=== PATIENT | male | born 1940 | race Caucasian/White ===

== ENCOUNTER 2022-06-06 13:49 | Outpatient (CLI) | payer MEDICARE, BC, SELFPAY ==
--- NOTE | 2022-06-06 14:00 | CRLHL7_ITS ---
For Patients: As a result of the Cures Act, medical imaging exams and procedure reports are released immediately into your electronic medical record. You may view this report before your referring provider. If you have questions, please contact your health care provider. INDICATION: Left calf trauma TECHNIQUE: A compression venous ultrasound exam was performed of the left lower extremity using wynne-scale imaging, color Doppler and spectral Doppler analysis. FINDINGS: Sonographic imaging of the left lower extremity demonstrates normal compressibility and color Doppler venous blood flow within the common femoral vein, deep femoral vein, and the proximal greater saphenous vein. Within the thigh, the femoral vein is patent and compressible. At a lower level, the popliteal and posterior tibial veins also show normal compressibility and color Doppler venous blood flow. Limited imaging of the contralateral groin demonstrates a normal spectral waveform and color Doppler venous blood flow within the right common femoral vein. Fluid collection in the medial left calf measuring approximately 5.3 x1.1 centimeter. IMPRESSION: No evidence of deep vein thrombosis within the left lower extremity. Fluid collection in the left medial calf could be related to hematoma given history of trauma measuring approximately 5.3 x 1.1 centimeters. Dictated by Nevin Perdomo MD @ 06/06/2022 3:18:57 PM (Electronically Signed)
== END 2022-06-06 13:50 | disposition home or self-care (01) ==
PROVIDERS: PCP Nurse Practitioner Family; Visit Provider Nurse Practitioner Family
DX: M79.89 Other specified soft tissue disorders (principal)
CPT/HCPCS: 93971

== ENCOUNTER 2022-06-10 08:30 | Outpatient (CLI) | payer MEDICARE, BC, SELFPAY ==
[2022-06-10 15:52] LABS: Chloride* 104 mmol/L (96-114); Sodium* 141 mmol/L (135-149)
[2022-06-10 15:53] LABS: Albumin* 3.9 g/dL (3.3-5.0); Potassium* 5.2 mmol/L (3.6-5.1)
[2022-06-10 15:55] LABS: Carbon Dioxide* 29 mmol/L (20-32)
[2022-06-10 15:56] LABS: Alanine Aminotransferase* 26 U/L (4-50); Alkaline Phosphatase* 85 U/L (40-150); Aspartate Amino Transferase* 23 U/L (12-35); Blood Urea Nitrogen* 21 mg/dL (7-30); Calcium* 10.1 mg/dL (8.4-10.6); Cholesterol* 115 mg/dL (90-199); Creatinine* 0.8 mg/dL (0.5-1.5); Estimated Glomerular Filt Rate 88 ml/min; Glucose* 154 mg/dL (60-115); HDL Cholesterol* 39 mg/dL (>=40); LDL Cholesterol Calculated 58 mg/dL (<100); Total Protein* 6.3 g/dL (6.0-8.3); Triglycerides* 91 mg/dL (40-149)
[2022-06-10 16:13] LABS: Creatinine Urine 172.9 mg/dL
[2022-06-10 16:16] LABS: Microalbumin Creatinine Ratio 50 mg/g (0-30); Microalbumin Urine 9 mg/dL
== END 2022-06-10 08:31 | disposition home or self-care (01) ==
PROVIDERS: PCP Nurse Practitioner Family; Visit Provider Nurse Practitioner Family
DX: E11.9 Type 2 diabetes mellitus without complications (principal); I10 Essential (primary) hypertension; E78.5 Hyperlipidemia, unspecified; D62 Acute posthemorrhagic anemia; M79.89 Other specified soft tissue disorders; Z86.79 Personal history of other diseases of the circulatory system
CPT/HCPCS: 80053; 80061; 82043; 82570; 84443

== ENCOUNTER 2023-06-19 13:50 | Outpatient (CLI) | payer MEDICARE, BC, SELFPAY ==
--- OUTSIDE RECORDS SUMMARY | 2023-06-21 09:13 | XMS_ITS ---
Author Name Unknown Organization [facility] Address [address] [place] [address] Care Team Providers Care Life Enrichment Director Name Role Phone Mitesh Jean M.D., Ph.D. 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 Past Plans No past plan information found. Radiation Treatments * No radiation treatments are documented for this patient in [facility]. Treatments may have been administered in another system. Lifetime Dose Tracking * Chemical Lifetime Dose Automatic Entry Manual Entr y Radiation 13 mGy 13 mGy 0 mGy Fluoro Time 0.4 minutes 0.4 minutes 0 minutes Resolved Problems Problem Noted Date Diagnosed Date Resolved Date Acute Respiratory Failure With Hypoxia 06/02/2020 06/12/2020 Atelectasis 06/01/2020 06/12/2020 Hypertension Essential Primary 05/30/2020 06/12/2020 Coronary Artery Disease With out Angina Pectoris 05/29/2020 06/12/2020 Bundle Branch Block Bifascicular 06/22/2018 08/13/2020 Elevated Prostate-Specific Antigen 05/29/2018 06/12/2020 Overview: Added automatically from request for surgery [id number] Helicobacter Pylori As The C ause Of Diseases Classified Elsewhere 10/18/2016 06/06/2018 Fasciitis Plantar 07/10/2013 06/06/2018 Overview: left date of onset Coronary Artery Disease (Unspecified) 04/16/2008 06/06/2018
--- OUTSIDE RECORDS SUMMARY | 2023-06-21 09:13 | XMS_ITS | Encounter Summary ---
Author Name Unknown Organization [facility] Address [address] [place] [address] Care Team Providers Care Drywall Carrier Name Role Phone Mitesh Jean M.D., Ph.D. Primary Care Provider Encounter Details Date Type Department Care Team (Latest Contact Info) Description 03/30/2023 9:56 AM [facility] - 03/30/2023 11:59 PM [facility] Hospital Encounter Department of Laboratory Medicine in [address] [phone] Virgil Saucedo M.D. [address] [place] [phone] Coronary Arterial Bypass Graft Status Post Personal History; Atherosclerosis Of Coronary Artery Bypass Graft Without Angina Pectoris Discharge Disposition: Home or Self Care Social History Tobacco Use Types Packs/Day Years Used Date Smoking Tobacco: Former Cigarettes Q uit: 1980 Smokeless Tobacco: Current Chew Alcohol Use Standard Drinks/Week Comments Yes 0 (1 standard drink = 0.6 oz pur e alcohol) one drink a week maybe AUDIT-C Answer Date Recorded Q1: How often do you have a drink containing alc ohol? Monthly or less 02/28/2019 Average Number of Drinks Not on file 020 Frequency of Binge Drinking Not on file 02/13 PHQ-2 Answer Date Recorded PHQ-2 Score 0 11/18/2022 Depression Answer Date Recor ded PHQ-9 Total Score (max 27) 1 06/16 Nutrition Answer Date Recorded Nutrition: EVOO Fat Source Unknown 04/04 Nutrition: Servings of Fruits/Vegetables per Day Not on file 04/04/2020 Dental Answer Date Recorded Dental: Regular Dentist Unknown 04/04/19 Sex and Gender Information Value Date Recorded Sex Assigned at Male 11/03/2020 9:23 AM CDT Gender Identity Not on file Sexual Orientation Not on file documented as of this encounter Medications at Time of Discharge Medication Sig Dispensed Refills Start Date End Date aspirin [address] tablet Take 1 tablet (81 mg total) by mouth daily. Hold until stent removal 07/06/2018 atorvastatin (LIPITOR) 80 mg tablet Take 1 tablet by mouth every evening 90 tablet 3 06/10/2022 calcium citrate-vitamin D3 (for_CITRACAL+D) 1,184 mg (250 mg calcium)-200 unit per tablet Take 1 tablet by mouth daily with breakfast. glipiZIDE (GLUCOTROL XL) 5 mg 24 hr tablet Take 1 tablet (5 mg total) by mouth daily. 90 tablet 3 01/06/2023 isosorbide mononitrate (IMDUR) 30 mg 24 hr tablet Take 1 tablet (30 mg total) by mouth daily. 90 tablet 3 02/23/2023 lisinopriL (PRINIVIL,ZESTRIL) 10 mg tablet Take 1 tablet (10 mg total) by mouth daily. 90 tablet 3 02/23/2023 metFORMIN (GLUCOPHAGE) 1,000 mg tablet Take 1 tablet by mouth twice a day 180 tablet 3 06/10/2022 metoprolol tartrate (LOPRESSOR) 25 mg tablet Take 1 tablet (25 mg total) by mouth 2 (two) times a day. 180 tablet 3 06/10/2022 nitroglycerin (NITROSTAT) 0.[address] 1 tablet (0.4 mg) under the tongue every 5 minutes as needed for chest pain. Do not exceed 3 doses per episode. 25 tablet 11/03/2022 documented as of this encounter Miscellaneous Notes * Result Encounter Note - Debra Lynch R.N. - 03/31/2023 11:54 AM [facility] Contacted patient on mobile phone to relay Dr. Saucedo's message about his lipid results: Please let him know that his lipid was excellent and shows very good control. No changes to his medications. Thanks, Virgil Patient had no further questions at this time. [facility] documented in this encounter Plan of Treatment Upcoming Encounters Date Type Department Care Team (Late st Contact Info) Description 08/03/2023 8:00 AM CDT Appointment Department of Laboratory Medicine and Pathology, [place], [place] [address] [place] [phone] Juanita Grant APRN C.N.P., M.S.N. [address] [place] [phone] 08/03/2023 8:45 AM CDT Appointment Department of Radiology, [place], [place] [address] [place] [phone] Juanita Grant APRN C.N.P., M.S.N. [address] [place] [phone] 08/03/2023 2:30 PM CDT Office Visit Department of Radiology, [place], [place] [address] [place] [phone] Juanita Grant APRN C.N.P., M.S.N. [address] [place] [phone] documented as of this encounter Procedures Procedure Name Priority Date/Time Associated Diagnosis Comments LIPID PANEL, S Routine 03/30/2023 9:02 AM [facility] Coronary Arterial Bypass Graft Status Post Personal History Atherosclerosis Of Coronary Artery Bypass Graft Without Angina Pectoris documented in this encounter Results * Lipid Panel (03/30/2023 9:02 AM [facility]) Triglycerides 75 mg/dL 03/30/2023 10:21 AM [facility]FL Comment: ----REFERENCE VALUE---- Normal: <150 mg/dL Borderline High: 150-199 mg/dL High: 200-499 mg/dL Very High: > or =500 mg/dL Cholesterol, Total 101 mg/dL 2023 10:21 AM [facility] Comment: ----REFERENCE VALUE---- Desirable: < 200 mg/dL Borderline High: 200 - 239 mg/dL High: > or = 240 mg/dL Cholesterol, LDL, Calculated 41 mg/dL 03/30/2023 10:21 AM [facility]FL Comment: ----REFERENCE VALUE---- Desirable: <100 mg/dL Above Desirable: 100-129 mg/dL Borderline High: 130-159 mg/dL High: 160-189 mg/dL Very High: >=190 mg/dL ----ADDITIONAL INFORMATION---- LDL cholesterol calculated using the Connolly/NIH equation. Cholesterol, HDL 44 >=40 mg/dL 03/30/2023 10:21 AM [facility]FL Cholesterol, Non-HDL, Calculated 57 mg/dL 03/30/2023 10:21 AM [facility] Comment: ----REFERENCE VALUE---- Desirable: <130 mg/dL Above Desirable: 130-159 mg/dL Borderline High: 160-189 mg/dL High: 190-219 mg/dL Very High: > or =220 mg/dL Fasting (8 HR or more) Unknown 03/30/2023 10:02 AM [facility] CNKY Blood (Blood, Venous) 03/30/2023 9:02 AM [facility] 03/30/2023 10:01 AM [facility] Virgil Saucedo M.D. LAB BLOOD ADD-ON [facility] [address] [place] [phone], [facility] in [address] [phone] documented in this encounter Visit Diagnoses Diagnosis Coronary Arterial Bypass Graft Status Post Personal History Atherosclerosis Of Coronary Artery Bypass Graft Without Angina Pectoris documented in this encounter Additional Health Concerns Assessment Noted Time PHQ-9 Depression Total Score: 1 06/17/19 21 1:53 PM CDT documented as of this encounter Care Teams Drywall Carrier Relationship Specialty Start Date End Date Mitesh Jean M.D., Ph.D. [id number] [place] [phone] PCP - General Family Medicine 06/04/20 documented as of this encounter
--- OUTSIDE RECORDS SUMMARY | 2023-06-21 09:13 | XMS_ITS | Referral Summary ---
Author Name Unknown Organization [facility] Address [address] [place] [address] Care Team Providers Care Hemmer Automatic Name Role Phone Mitesh Jean M.D., Ph.D. Primary Care Provider Source Comments Patient records contain information from all sites at [facility]. For routine questions regarding patient records, call [phone] during business hours, M-F 8:00 AM - 5:00 PM Central Time. Record requests for emergency care only can be directed to [phone] at any time.[facility] Encounters Date Type Department Care Team Description 06/20/2023 Orders Only [facility] Mitesh Rudolph M.D., Ph.D. 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 Coronary Arterial Bypass Graft Status Post Personal History; Atherosclerosis Of Coronary Artery Bypass Graft Without Angina Pectoris Discharge Disposition: Home or Self Care 03/30/2023 9:15 AM NAIL KEGGER Office Visit Department of Cardiovascular Diseases in [address] [phone] Virgil Saucedo M.D. 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 Dyspnea On Exertion; Coronary Arterial Bypass Graft Status Post Personal History Discharge Disposition: Home or Self Care from Last 3 Months Allergies Active Allergy Reactions Criticality Noted Date Comments Morphine Rash High 05/17/2007 Medications Medication Sig Dispensed Refills Start Date End Date Status calcium citrate-vitamin D3 (for_CITRACAL+D) 1,184 mg (250 mg calcium)-200 unit per tablet Take 1 tablet by mouth daily with breakfast. Active aspirin [address] tablet Take 1 tablet (81 mg total) by mouth daily. Hold until stent removal 07/06/2018 Active atorvastatin (LIPITOR) 80 mg tablet Take 1 tablet by mouth every evening 90 tablet 3 06/10/2022 Active metoprolol tartrate (LOPRESSOR) 25 mg tablet Take 1 tablet (25 mg total) by mouth 2 (two) times a day. 180 tablet 3 06/10/2022 Active metFORMIN (GLUCOPHAGE) 1,000 mg tablet Take 1 tablet by mouth twice a day 180 tablet 3 06/10/2022 Active nitroglycerin (NITROSTAT) 0.[address] 1 tablet (0.4 mg) under the tongue every 5 minutes as needed for chest pain. Do not exceed 3 doses per episode. 25 tablet 11/03/2022 Active glipiZIDE (GLUCOTROL XL) 5 mg 24 hr tablet Take 1 tablet (5 mg total) by mouth daily. 90 tablet 3 01/06/2023 Active lisinopriL (PRINIVIL,ZESTRIL) 10 mg tablet Take 1 tablet (10 mg total) by mouth daily. 90 tablet 3 02/23/2023 Active isosorbide mononitrate (IMDUR) 30 mg 24 hr tablet Take 1 tablet (30 mg total) by mouth daily. 90 tablet 3 02/23/2023 Active neomycin-polymyxin- dexamethasone (MAXITROL) 3.5mg/mL-10,000 unit/mL-0.1 % ophthalmic suspension Administer 1 drop into the right eye 6 (six) times a day, then taper as directed; shake before use 5 mL 1 04/24/2023 Active sulfamethoxazole-tr imethoprim (BACTRIM DS) 800-160 mg per tablet Take 1 tablet by mouth 2 (two) times a day. 10 tablet 06/19/2023 Active Active Problems Problem Noted Date Diagnosed Date Pain Right Upper Quadrant 04/03/2021 Overview: Added automatically from request for surgery [id number] Pain Epigastric 04/03/2021 Overview: Added automatically from request for surgery [id number] Dysphagia 04/03/2021 Overview: Added automatically from request for surgery [id number] Bypass Coronary Artery Graft Status Post 021 [...] Cervical 05/07/2015 Atherosclerotic Heart Diseas e Of [place] Coronary Artery Without Angina Pectoris 09/30/2013 Overview: Coronary Artery Disease (CAD) Chronic Primary Osteoarthritis Multiple Sites 04/13/2011 Overview: date of onset unknown Hypertensive Heart Disease Without Heart Failure 12/29/2009 Personal History Of Malignant Neoplasm Of [place] te 10/30/2008 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 Hyperlipidemia 04/16/2008 Primary Malignant Neoplasm Of Prostate 8 Resolved Problems Problem Noted Date Diagnosed Date Resolved Date Acute Respiratory Failure With Hypoxia 06/02/2020 06/12/2020 Atelectasis 06/01/2020 06/12/2020 Hypertension Essential Primary 05/30/2020 06/12/2020 Coronary Artery Disease With out Angina Pectoris 05/29/2020 06/12/2020 Bundle Branch Block Bifascicular 06/22/2018 08/13/2020 Elevated Prostate-Specific Antigen 05/29/2018 06/12/2020 Overview: Added automatically from request for surgery [id number] Helicobacter Pylori As The C ause Of Diseases Classified Elsewhere 10/18/2016 06/06/2018 Fasciitis Plantar 07/10/2013 06/06/2018 Overview: left date of onset Coronary Artery Disease (Unspecified) 04/16/2008 06/06/2018 Immunizations Name Administration Dates Next Due H1N1 All Forms 02/12/2009 Influenza (IM) Preservative Free 12/28/2010 Influenza TIV (IM) 10/28/2011,11/13/2010 Influenza high dose QV(65 ye ars or older) (PF) 12/16/2020,11/26/2019,12/19/2018,2017,12/13/2016,12/09/2015,11/20/2014,1 03/16/2013 Influenza, Seasonal, Injectable 10/28/2011,11/13 Influenza, Unspecified 11/27/2012,11/13/2010 PCV13 05/15/2015 PPSV23 01/13/2006 SARS-COV-2 (COVID-19) - PFIZ ER (Discontinued)(12 years or older) 04/11/2020,03/21/2020 Td (Adult), adsorbed 05/14/2000 Td Preservative Free (TENIVA C, DECAVAC) 04/05/2010 Td, (Adult) Unspecified 05/14/2000 Tdap 05/15/2015 influenza high dose (65 year s or older) (PF) 12/13/2016,12/09/2015,11/20/2014,2013 Social History Tobacco Use Types Packs/Day Years Used Date Smoking Tobacco: Former Cigarettes Q uit: 1979 Smokeless Tobacco: Current Chew Tobacco Cessation:Ready to Q uit: Not Asked; Counseling Given: Not Answered Alcohol Use Standard Drinks/Week Comments Yes 0 [...] on file Sexual Orientation Not on file Last Filed Vital Signs Vital Sign Reading Time Taken Comments Blood Pressure 116/76 03/30/2023 9:06 AM NAIL KEGGER Pulse 61 03/30/2023 9:06 AM NAIL KEGGER Temperature 36.7 ??C (98.1 ??F) 03/30/2023 9:06 AM CS T Respiratory Rate 17 11/01/2022 5:00 PM CDT Oxygen Saturation 95% 03/30/2023 9:06 AM NAIL KEGGER Inhaled Oxygen Concentration - - Weight 101 kg (221 lb 9 oz) 03/30/2023 9:[address] Height 169 cm (5' 6.54) 04/27/2021 9:26 AM CDT Body Mass Index 35.19 04/27/2021 9:26 AM CDT Plan of Treatment Upcoming Encounters Date Type Department Care Team (Late st Contact Info) Description 08/03/2023 8:00 AM CDT Appointment Department of Laboratory Medicine and Pathology, [place], [place] [address] [place] [phone] Juanita Grant APRN, C.N.P., M.S.N. [address] [place] [phone] 08/03/2023 8:45 AM CDT Appointment Department of Radiology, [place], [place] 200 [place] [address] Juanita Grant APRN, C.N.P., M.S.N. [address] [place] [phone] 08/03/2023 2:30 PM CDT Office Visit Department of Radiology, [facility], in [place], [place] [address] [place] [address] Juanita Grant APRN, C.N.P., M.S.N. [address] [place] [phone] Medical Devices Implanted Type Area Auriculotherapist Device Identifier Shelf Expiration Date Model / Serial / Lot Clp Hrzn Ti 24 Clp Sm Red - [id number] Implanted:Qty: 1 on 05/29/2020 by Lisa Trinidad M.D., M.P.H. at [facility] Hardware e.g. pins/screws /rods N/A: [employer] [id number] / / Clp Hrzn Ti 24 Clp Sm Red - [id number] Implanted:Qty: 2 on 05/29/2020 by Lisa Trinidad M.D., M.P.H. at [facility] Hardware e.g. pins/screws /rods N/A: [employer] [id number] / / Clp Hrzn Ti 24 Clp Wa [place] - [id number] Implanted:Qty: 1 on 05/29/2020 by Lisa Trinidad M.D., M.P.H. at [facility] Hardware e.g. pins/screws /rods N/A: [employer] [id number] / / Clp Hrzn Ti 24 Clp Sm Red - [id number] Implanted:Qty: 1 on 05/29/2020 by Michel Luke M.B. at [facility] Hardware e.g. pins/screws /rods Left: [employer] [id number] 11/30/2024 [id number] / / [id number] Clp Hrzn Ti 24 Clp [place] - [id number] Implanted:Qty: 1 on 05/29/2020 by Michel Luke M.B. at [facility] Hardware e.g. pins/screws /rods Left: [employer] [id number] 10/07/2024 [id number] / / [id number] Knee Implant Knee Implant Knee Conversions - Default Historical Implant Device Implanted:Qty: 1 on 10/05/2015 Ocular Lens Left: Eye Description:Body Location - Eye L. Device Status Text - OculrLens. Conversions - Default Historical Implant Device Implanted:Qty: 1 on 10/05/2015 Ocular Lens Right: Eye Description:Body Location - Eye R. Device Status Text - OculrLens. Explanted Type Area Auriculotherapist Device Identifier Shelf Expiration Date Model / Serial / Lot Stnt Uret Inl [id number] - [id number] Implanted:Qty : 1 on 07/05/2018 by Marium Gutierrez M.D. at [facility] Explanted:Qty : 1 on 07/10/2018 by Elvin Cabrales M.D. Ureteral Stent Left: Ureter C.R.Bard [id number] 04/26/2022 [id number] / / [id number] Procedures Procedure Name Priority Date/Time Associated Diagnosis Comments LIPID PANEL, S Routine 03/30/2023 9:02 AM NAIL KEGGER Coronary Arterial Bypass Graft Status Post Personal History Atherosclerosis Of Coronary Artery Bypass Graft Without Angina Pectoris NT-PRO B-TYPE NATRIURETIC PEPTIDE (BNP), S Routine 03/30/2023 9:02 AM NAIL KEGGER Dyspnea On Exertion CBC WITHOUT DIFFERENTIAL, B Routine 03/30/2023 9:02 AM NAIL KEGGER Dyspnea On Exertion BASIC METABOLIC PANEL, S/P Routine 03/30/2023 9:02 AM NAIL KEGGER Dyspnea On Exertion HEMOGLOBIN A1C, B Routine 11/18/2022 8:3 3 AM CDT 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) ALBUMIN, RANDOM, U Routine 12/29/2021 9: 30 AM [facility] 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) from Last 3 Months or Most Recently Relevant to Health Maintenance Results * Lipid Panel (03/30/2023 9:02 AM [facility]) Triglycerides 75 mg/dL 03/30/2023 10:21 AM [facility] Comment: ----REFERENCE VALUE---- Normal: <150 mg/dL Borderline High: 150-199 mg/dL High: 200-499 mg/dL Very High: > or =500 mg/dL Cholesterol, Total 101 mg/dL 2023 10:21 AM [facility] Comment: ----REFERENCE VALUE---- Desirable: < 200 mg/dL Borderline High: 200 - 239 mg/dL High: > or = 240 mg/dL Cholesterol, LDL, Calculated 41 mg/dL 03/30/2023 10:21 AM [facility] Comment: ----REFERENCE VALUE---- Desirable: <100 mg/dL Above Desirable: 100-129 mg/dL Borderline High: 130-159 mg/dL High: 160-189 mg/dL Very High: >=190 mg/dL ----ADDITIONAL INFORMATION---- LDL cholesterol calculated using the Connolly/NIH equation. Cholesterol, HDL 44 >=40 mg/dL 03/30/2023 10:21 AM [facility] Cholesterol, Non-HDL, Calculated 57 mg/dL 03/30/2023 10:21 AM [facility] Comment: ----REFERENCE VALUE---- Desirable: <130 mg/dL Above Desirable: 130-159 mg/dL Borderline High: 160-189 mg/dL High: 190-219 mg/dL Very High: > or =220 mg/dL Fasting (8 HR or more) Unknown 03/30/2023 10:02 AM [facility] Blood (Blood, Venous) 03/30/2023 9:02 AM NAIL KEGGER 03/30/2023 10:01 AM [facility] Virgil Saucedo M.D. LAB BLOOD ADD-ON [facility] [address] [place] [phone], [facility] in [address] [address] * NT-Pro B-Type Natriuretic Peptide (BNP) (03/30/2023 9:02 AM NAIL KEGGER) NT-Pro BNP 66 <=540 pg/mL 03/30/2023 9:37 AM NAIL KEGGER [facility] Comment: NT-proBNP values less than 300 pg/mL have a 99% negative predictive value for excluding acute congestive heart failure. A cutoff of 1200 pg/mL for patients with an eGFR<60 yields a diagnostic sensitivity and specificity of 89% and 72% for acute congestive heart failure. A diagnostic NT-proBNP cutoff of 1800 pg/mL has been suggested in adults over 75 years of age in the absence of renal failure. Blood (Blood, Venous) 03/30/2023 9:02 AM NAIL KEGGER 03/30/2023 9:04 AM NAIL KEGGER Virgil Saucedo M.D. LAB BLOOD ADD-ON [facility] [address] [place] [phone], [facility] in [address] [address] * (ABNORMAL) CBC without Differential (03/30/2023 9:02 AM NAIL KEGGER) Hemoglobin 15.9 13.2 - 16.6 g/dL 03/30/2023 9:23 AM [facility] Hematocrit 48.8(H) 38.3 - 48.6 % 03/30/2023 9:23 AM NA[facility] Erythrocytes 5.69(H) 4.35 - 5.65 x10(12)/L 03/30/2023 9:23 AM NA[facility] MCV 85.8 78.2 - 97.9 fL 03/30/2023 9:23 AM NA[facility] RBC Distrib Width 13.8 11.8 - 14.5 % 03/30/2023 9:23 AM [facility] Platelet Count 202 135 - 317 x10(9)/L 03/30/2023 9:23 AM NA[facility] Leukocytes 7.1 3.4 - 9.6 x10(9)/L 03/30/2023 9:23 AM NA[facility] Blood (Blood, Venous) 03/30/2023 9:02 AM NAIL KEGGER 03/30/2023 9:04 AM NAIL KEGGER Virgil Saucedo M.D. LAB BLOOD ADD-ON [facility] [address] [place] [phone], [facility] CNFL [facility] [place] [address] * (ABNORMAL) Basic Metabolic Panel (03/30/2023 9:02 AM NAIL KEGGER) Potassium, P 4.9 3.6 - 5.2 mmol/L 03/30/2023 9:26 AM [facility] Sodium, P 142 135 - 145 mmol/L 03/30/2023 9:26 AM NA[facility] Chloride, P 105 98 - 107 mmol/L 03/30/2023 9:26 AM NA[facility] Bicarbonate, P 29 22 - 29 mmol/L 03/30/2023 9:26 AM NAIL [facility] Anion Gap, P 8 7 - 15 03/30/2023 9:26 AM NA[facility] BUN (Blood Urea Nitrogen), P 25(H) 8 - 24 mg/dL 03/30/2023 9:26 AM NA[facility] KE[facility] Creatinine 1.03 0.74 - 1.35 mg/dL 03/30/2023 9:26 AM NA[facility] Estimated GFR (eGFR) 73 >=60 mL/min/BSA 03/30/2023 9:26 AM NAIL KEGGER [facility] Comment: Estimated GFR calculated using the 2020 CKD_EPI creatinine equation. Calcium, Total, P 10.2 8.8 - 10.2 mg/dL 03/30/2023 9:26 AM NAIL KEGGER [facility] Glucose, P 152(H) 70 - 140 mg/dL 03/30/2023 9:26 AM NAIL KEGGER [facility] Blood (Blood, Venous) 03/30/2023 9:02 AM NAIL KEGGER 03/30/2023 9:04 AM NAIL KEGGER Virgil Saucedo M.D. LAB BLOOD ADD-ON Performing Organization Address City/[facility]/ZIP Co de Phone Number [facility] [address] [place] [phone], [facility] CNFL [facility] in [address] [address] * (ABNORMAL) Hemoglobin A1c (11/18/2022 8:33 AM CDT) Hemoglobin A1c, B 8.2(H) 4.2 - 5.6 % 11/18/2022 1:45 PM CDT [facility] Comment: Hemoglobin A1c values greater than or equal to 6.5 percent are diagnostic for diabetes mellitus. ??Diagnosis should be confirmed by repeat testing. ??In diabetic patients, HbA1c goals should be discussed with healthcare provider. Blood (Blood, Venous) 11/18/2022 8:33 AM CDT 11/18/2022 8:34 AM CDT Mitesh Jean M.D., Ph.D. LAB BLOOD ADD-O N Performing Organization Address City/[facility]/ZIP Co de Phone Number [facility] [address] [place] [phone], [facility] in [address] [phone] * (ABNORMAL) Albumin, Random, Urine (12/29/2021 9:30 AM NAIL KEGGER) Microalbumin 175.8 mg/L 12/29/2021 9:45 AM [facility] Creatinine 330 mg/dL 12/29/2021 9:45 AM NAIL KEGGER [facility] Albumin/Creatinin e Ratio 53(H) <17 mg/g 12/29/2021 9:45 AM NAIL KEGGER [facility] Urine (Urine, Midstream) 12/29/2021 9:30 AM NAIL KEGGER 12/29/2021 9:30 AM NAIL KEGGER Mitesh Jean M.D., Ph.D. LAB URINE ORDER [facility] [address] [address], [place] CNFL [facility] in [place] [id number] [place] [phone] from Last 3 Months or Most Recently Relevant to Health Maintenance Advance Directives For more information, please contact: [phone] Documents on File Type Date Recorded Patient Home Economist Expl anation Advance Directives 05/29/2012 12:00 AM Leg acy document. See document viewer. * Full Code (Latest Code Status on File) Date Activated Date Inactivated Comments 05/29/2020 8:01 PM 06/03/2020 1:44 PM Question Answer Comments Full Code: Discussed * Full Code Date Activated Date Inactivated Comments 05/24/2020 12:09 PM 05/29/2020 8:01 PM Question Answer Comments Full Code: Discussed Care Teams Hemmer Automatic Relationship Specialty Start Date End Date Mitesh Jean M.D., Ph.D. [address] [address] [place] [address] PCP - General Family Medicine 06/04/20
--- OUTSIDE RECORDS SUMMARY | 2023-06-21 09:13 | XMS_ITS | Encounter Summary ---
Author Name Unknown Organization [facility] Address [address] [place] [address] Care Team Providers Care Angiography Nurse Name Role Phone Mitesh Jean M.D., Ph.D. Primary Care Provider Reason for Referral * Outpatient (Routine) - Authorized Specialty Diagnoses / Procedures Referred By Perfecto ac Referred To Contact Cardiovascular Disease Virgil Saucedo M.D. [address] [place] [phone] [facility] Region Referral ID Status Reason Start Date Expiration Date V isits Requested Visits Authorized [id number] Authorized 03/30/2023 09/28/2024 1 1 [employer] Reason for Visit * Reason Comments Follow-up * Outpatient (Routine) - Closed Specialty Diagnoses / Procedures Referred By Perfecto ac Referred To Contact Cardiovascular Disease Virgil Saucedo M.D. [address] [place] [phone] [facility] Region Referral ID Status Reason Start Date Expiration Date Visits Re quested Visits Authorized [id number] Closed 02/23/2023 02/22/2026 1 1 Encounter Details Date Type Department Care Team (Latest Contact Info) Description 03/30/2023 9:15 AM [employer] Office Visit Department of Cardiovascular Diseases in [address] [phone] Virgil Saucedo M.D. 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); Hyperlipidemia; Hypertensive Heart Disease Without Heart Failure Discharge Disposition: Home or Self Care Social [...] on file documented as of this encounter Last Filed Vital Signs Vital Sign Reading Time Taken Comments Blood Pressure 116/76 03/30/2023 9:06 AM [employer] Pulse 61 03/30/2023 9:06 AM [employer] Temperature 36.7 ??C (98.1 ??F) 03/30/2023 9:06 AM CS T Respiratory Rate - - Oxygen Saturation 95% 03/30/2023 9:06 AM [employer] Inhaled Oxygen Concentration - - Weight 101 kg (221 lb 9 oz) 03/30/2023 9:[address] Height - - Body Mass Index 35.19 04/27/2021 9:26 AM CDT documented in this encounter Patient Instructions * Patient Instructions* Virgil Saucedo M.D. - 03/30/2023 9:15 AM [employer] Lipid panel. Today. Go back to the director of front office and see it still flags that it may not be covered. Exercise as your prescription for today. Six month follow-up. If doing great, ok to cancel. See Dr. Jean. If not doing well (chest pain, worsening shortness of breath--call [phone] ask to speak to a heart nurse). [employer] documented in this encounter Progress Notes * Virgil Saucedo M.D. - 03/30/2023 9:15 AM CST SUBJECTIVE CHIEF COMPLAINT / REASON FOR VISIT Follow-up HISTORY OF PRESENT ILLNESS Isak Ochoa is a 82 y.o. male who presents for follow-up for evaluation of chronic ischemic heart disease. Please see my note from 02/23/2023 for details of his medical history. He was admitted in May [address]-elevation myocardial infarction. At that time, he underwent coronary artery bypass grafting including POWERS to LAD and radial artery graft to a diagonal. He did well in follow-up. On 11/01/2022, he was seen for chest pain in the emergency room. This wasintermittent and sharp lasting for only 1-2 seconds. EKG and troponins were reassuring. Over the last 6 months, he has describes increased shortness of breath. He underwent a stress echocardiogram 01/27/2023. This was mildly positive for ischemia with 2 segments in the anterior distribution. No chest pain with exercise. Exercise capacity was 83% of predicted. When I last saw him, we discussed a broad differential for dyspnea. We had him undergo basic laboratory studies and a chest x-ray. We tried to get his blood pressure under better control with a move to lisinopril at 10 mg daily. I asked him to start a regular aerobic exercise program. We also started him on Imdur 30 mg daily. He smoked for about 20 years but quit 40 years ago. No known COPD or asthma. He presents back today overall improved. He feel like his breathing has improved with Imdur and time. No chest pain. No unusual shortness of breath. His has recently been in the hospital which has taken up most of the time. He has not started an exercise program. He brings in blood pressures which showed that most are under reasonable control. The following portions of the patient's history were reviewed as appropriate: medical history, social history, and surgical history. CURRENT MEDICATIONS Current Outpatient Medications on File Prior to Visit Medication Sig Dispense Refill aspirin [address] tablet Take 1 tablet (81 mg total) by mouth daily. Hold until stent removal atorvastatin (LIPITOR) 80 mg tablet Take 1 tablet by mouth every evening 90 tablet 3 calcium citrate-vitamin D3 (for_CITRACAL+D) 1,184 mg (250 mg calcium)-200 unit per tablet Take 1 tablet by mouth daily with breakfast. glipiZIDE (GLUCOTROL XL) 5 mg 24 hr tablet Take 1 tablet (5 mg total) by mouth daily. 90 tablet 3 isosorbide mononitrate (IMDUR) 30 mg 24 hr tablet Take 1 tablet (30 mg total) by mouth daily. 90 tablet 3 lisinopriL (PRINIVIL,ZESTRIL) 10 mg tablet Take 1 tablet (10 mg total) by mouth daily. 90 tablet 3 metFORMIN (GLUCOPHAGE) 1,000 mg tablet Take 1 tablet by mouth twice a day 180 tablet 3 metoprolol tartrate (LOPRESSOR) 25 mg tablet Take 1 tablet (25 mg total) by mouth 2 (two) times a day. 180 tablet 3 nitroglycerin (NITROSTAT) 0.[address] 1 tablet (0.4 mg) under the tongue every 5 minutesas needed for chest pain. Do not exceed 3 doses per episode. 25 tablet 0 No current facility-administered medications on file prior to visit. OBJECTIVE BP 116/76 (BP Location: Left arm, Patient Position: Sitting, Cuff Size: Regular) Pulse 61 Temp 36.7 ??C Wt 101 kg SpO2 95% BMI 35.19 kg/m?? PHYSICAL EXAMINATION General: Pleasant, conversant, and in no distress. Appears stated age. HEENT: Mucous membranes moist. Neck is supple. Trachea is midline. No scleral icterus or conjunctival pallor. Neck: Supple, no erythema. Cardiovascular: Regular rhythm and rate. No murmurs. Jugular venous pressure is normal. Pulmonary: Normal respiratory effort. Clear without wheezing or rhonchi. Abdomen: Soft, nontender, nondistended. Extremities: Warm and dry without significant edema. Psychiatric: Alert and oriented with appropriate affect. DIAGNOSTICS Lab Results Component Value Date/Time CHOL 123 05/25/2020 04:56 AM CHOL 139 03/25/2020 09:15 AM HDL 42 05/25/2020 04:56 AM HDL 38 (L) 03/25/2020 09:15 AM HDL 48 08/30/2016 07:30 AM LDLCALC 65 05/25/2020 04:56 AM LDLCALC 75 03/25/2020 09:15 AM TRIG 82 05/25/2020 04:56 AM TRIG 128 03/25/2020 09:15 AM ASSESSMENT / PLAN 1. History of coronary artery disease status post two-vessel CABG 2020. 2. Dyspnea on exertion, resolved with time, Imdur, a improved blood pressure control. 3. Hyperlipidemia on therapy. 4. Hypertension. He presents back overall improved. He does not note any dyspnea and describes good quality of life.We would continue forward with medical therapy for his coronary artery disease. We will have him recheck a lipid panel today to make sure that this is optimally treated. He is otherwise doing well with secondary prevention of coronary artery disease. I would like him to start a regular exercise program. He brings in home blood pressure recordings which show adequate control. At this juncture, we will follow-up with him after his lipid panel returns. We will plan to see himback in 6 months. If he is doing very well at that time, he could cancel and continue to see his primary care physician in follow-up. 30 minutes over half of which was spent in counseling and coordination of care in regards to dyspnea, chronic ischemic heart disease, hyperlipidemia, hypertension. [employer] documented in this encounter Plan of Treatment Upcoming Encounters Date Type Department Care Team (Late st Contact Info) Description 08/03/2023 8:00 AM CDT Appointment Department of Laboratory Medicine and Pathology, [facility] in [place] [address] [place] [phone] BathkeJuanita APRN, C.NDarien., M.S.N. [address] [place] [phone] 08/03/2023 8:45 AM CDT Appointment Department of Radiology, [facility] in [place], [place] [address] [place] [phone] Juanita Grant APRN, C.N.P., M.S.N. [address] [place] [phone] 08/03/2023 2:30 PM CDT Office Visit Department of Radiology, [place], [place] [address] [place] [phone] Juanita Grant APRN, C.NMitul, M.S.N. [address] [place] [phone] Scheduled Referrals Name Type Priority Associated Diagnoses Order Schedule Cardiovascular Disease office visit (clinic) Outpatient Referral Routine Expect ed: 09/28/2023 (Approximate), Expires: 06/27/2024 documented as of this encounter Results * Lipid Panel (03/30/2023 9:02 AM [facility]) Triglycerides 75 mg/dL 03/30/2023 10:21 AM [facility] Comment: ----REFERENCE VALUE---- Normal: <150 mg/dL Borderline High: 150-199 mg/dL High: 200-499 mg/dL Very High: > or =500 mg/dL Cholesterol, Total 101 mg/dL 2023 10:21 AM [facility] Comment: ----REFERENCE VALUE---- Desirable: < 200 mg/dL Borderline High: 200 - 239 mg/dL High: > or = 240 mg/dL Cholesterol, LDL, Calculated 41 mg/dL 03/30/2023 10:21 AM [facility] Comment: ----REFERENCE VALUE---- Desirable: <100 mg/dL Above Desirable: 100-129 mg/dL Borderline High: 130-159 mg/dL High: 160-189 mg/dL Very High: >=190 mg/dL ----ADDITIONAL INFORMATION---- LDL cholesterol calculated using the Connolly/NIH equation. Cholesterol, HDL 44 >=40 mg/dL 03/30/2023 10:21 AM [employer] [facility] Cholesterol, Non-HDL, Calculated 57 mg/dL 03/30/2023 10:21 AM [employer] [facility] Comment: ----REFERENCE VALUE---- Desirable: <130 mg/dL Above Desirable: 130-159 mg/dL Borderline High: 160-189 mg/dL High: 190-219 mg/dL Very High: > or =220 mg/dL Fasting (8 HR or more) Unknown 03/30/2023 10:02 AM [employer] [facility] Blood (Blood, Venous) 03/30/2023 9:02 AM [employer] 03/30/2023 10:01 AM [employer] Virgil Saucedo M.D. 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 [address] [place] [phone] PCP - General Family Medicine 06/04/20 documented as of this encounter
--- OUTSIDE RECORDS SUMMARY | 2023-06-21 09:13 | XMS_ITS ---
Author Name Unknown Organization [facility] Address [address] [place] [address] Care Team Providers Care Cripple Chaser Name Role Phone Unavailable Unavailable Unavailable Surgery Details Not on file Complications Check Surgery Details section. Procedure Estimated Blood Loss Check Surgery Details section. Procedure Findings Check Surgery Details section. Procedure Specimens Taken Check Surgery Details section.
--- OUTSIDE RECORDS SUMMARY | 2023-06-21 09:13 | XMS_ITS | Clinical Summary ---
Author Name Unknown Organization [facility] Address [address] [place] [address] Care Team Providers Care Inpatient Auditor Name Role Phone Mitesh Jean M.D., Ph.D. Primary Care Provider Source Comments Patient records contain information from all sites at [facility]. For routine questions regarding patient records, call [phone] during business hours, M-F 8:00 AM - 5:00 PM Central Time. Record requests for emergency care only can be directed to [phone] at any time.[facility] Allergies Active Allergy Reactions Criticality Noted Date [...] Overview: Added automatically from request for surgery [id number] Pain Epigastric 04/03/2021 Overview: Added automatically from request for surgery [id number] Dysphagia 04/03/2021 Overview: Added automatically from request for surgery [id number] Bypass Coronary Artery Graft Status Post 021 [...] Cervical 05/07/2015 Atherosclerotic Heart Diseas e Of [place] Coronary Artery Without Angina Pectoris 09/30/2013 Overview: [...] Overview: Added automatically from request for surgery [id number] Helicobacter Pylori As The C ause Of Diseases Classified Elsewhere 10/18/2016 06/06/2018 Fasciitis Plantar 07/10/2013 06/06/2018 Overview: left date of onset Coronary Artery Disease (Unspecified) 04/16/2008 06/06/2018 Encounters Date Type Department Care Team Description 06/20/2023 Orders Only [facility] Mitesh Rudolph M.D., Ph.D. 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 Coronary Arterial Bypass Graft Status Post Personal History; Atherosclerosis Of Coronary Artery Bypass Graft Without Angina Pectoris Discharge Disposition: Home or Self Care 03/30/2023 9:15 AM SAND CUTTER Office Visit Department of Cardiovascular Diseases in [address] [phone] Virgil Saucedo M.D. 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 Dyspnea On Exertion; Coronary Arterial Bypass Graft Status Post Personal History Discharge Disposition: Home or Self Care from Last 3 Months Immunizations Name Administration Dates Next Due H1N1 [...] (65 year s or older) (PF) 12/13/2016,12/09/2015,11/20/2014,2013 Family History Medical History Relation Name Comments Diabetes Brother 1 Prostate cancer Brother 2 No Known Problems Father Cancer Mother Cataracts Neg Hx Glaucoma Neg Hx Hypertension Neg Hx Macular degeneration Neg Hx Retinal degeneration Neg Hx Retinal detachment Neg Hx Relation Name Status Comments Brother 1 Brother 2 Father Mother Social History Tobacco Use Types Packs/Day Years [...] Comments Blood Pressure 116/76 03/30/2023 9:06 AM SAND CUTTER Pulse 61 03/30/2023 9:06 AM SAND CUTTER Temperature 36.7 ??C (98.1 ??F) 03/30/2023 9:06 AM CS T Respiratory Rate 17 11/01/2022 5:00 PM CDT Oxygen Saturation 95% 03/30/2023 9:06 AM SAND CUTTER Inhaled Oxygen Concentration - - Weight 101 kg (221 lb 9 oz) 03/30/2023 9:[address] Height 169 cm (5' 6.54) 04/27/2021 9:26 AM CDT Body Mass Index 35.19 04/27/2021 9:26 AM CDT Plan of Treatment Upcoming Encounters Date Type Department Care Team (Late st Contact Info) Description 08/03/2023 8:00 AM CDT Appointment Department of Laboratory Medicine and Pathology, [facility], in [place], [place] [address] [place] [address] Juanita Grant APRN, C.N.P., M.S.N. 200 [place] [address] 08/03/2023 8:45 AM CDT Appointment Department of Radiology, [facility], in [place], [place] [address] [place] [address] Juanita Grant APRN, C.N.P., M.S.N. [address] [place] [address] 08/03/2023 2:30 PM CDT Office Visit Department of Radiology, [facility], in [place], [place] [address] [place] [address] Juanita Grant APRN, C.N.Augustina., M.S.N. [address] [place] [address] Health Maintenance Due Date Last Done Comments Visit: Medicare Annual Wellness 1940 Hepatitis B Vaccines (1 of 3 - Risk 3-dose series) 2000 Diabetic Office Visit with F oot Exam 06/12/2021 06/12/2020 Tobacco Cessation counseling 06/12/2021 06/12/2020 Dilated Eye Exam 08/28/2021 08/28/2020, 02/28/2019 Urine Albumin 12/29/2022 12/29/2021, 05/16, 04/07/2017 Depression Screening (Annual PHQ-2) 02/13/2023 Fall Risk Screen (Annual) 02/13/2023 Hemoglobin A1C 02/18/2023 11/18/2022, 12/14, 04/02/2021, Additional history exists COVID-19 Vaccine (2022- 4 season) 2023 12/07/2022, 11/16/2021, 05/18/2021, Additional history exists Visit: Chronic Disease, age 18+ 11/19/2023 , 11/18/2022 Creatinine Level (Kidney Fun ction Test) 03/30/2024 03/30/2023, 11/01/2022, 05/22/2022, Additional history exists Office Visit for Blood Press ure Check / Re-check 03/30/2024 03/30/2023 Potassium Level 03/30/2024 03/30/2023, 10/14, 05/22/2022, Additional history exists Sodium Level 03/30/2024 03/30/2023, 10/14, 05/22/2022, Additional history exists DTaP,Tdap,and Td Vaccines (2 - Td or Tdap) 05/14/2025 05/15/2015, 04/05/2010, 05/14/2000, Additional history exists Pneumococcal vaccine (65+ years) Completed 05/15/2015, 01/27/2006, 01/13/2006 Zoster Vaccines Completed 02/19/2021, 12/03/2020 Influenza Vaccine Completed 12/07/2022, , 12/16/2020, Additional history exists Medical Devices Implanted Type Area Nurse Outreach Case Manager Device Identifier Shelf Expiration Date Model / Serial / Lot Clp Hrzn Ti 24 Clp Sm Red - [id number] Implanted:Qty: 1 on 05/29/2020 by Lisa Trinidad M.D., M.P.H. at [facility] Hardware e.g. pins/screws /rods N/A: [employer] [id number] / / Clp Hrzn Ti 24 Clp Sm Red - [id number] Implanted:Qty: 2 on 05/29/2020 by Lisa Trinidad M.D., M.P.H. at [facility] Hardware e.g. pins/screws /rods N/A: [employer] [id number] / / Clp Hrzn Ti 24 Clp Molina - [id number] Implanted:Qty: 1 on 05/29/2020 by Lisa Trinidad M.D., M.P.H. at [facility] Hardware e.g. pins/screws /rods N/A: [employer] [id number] / / Clp Hrzn Ti 24 Clp Sm Red - [id number] Implanted:Qty: 1 on 05/29/2020 by Michel Luke M.B. at [facility] Hardware e.g. pins/screws /rods Left: [employer] [id number] 11/30/2024 [id number] / / [id number] Clp Hrzn Ti 24 Clp Molina - [id number] Implanted:Qty: 1 on 05/29/2020 by Michel Luke M.B. at [facility] Hardware e.g. pins/screws /rods Left: [employer] [id number] 10/07/2024 [id number] / / [id number] Knee Implant Knee Implant Knee Conversions - Default Historical Implant Device Implanted:Qty: 1 on 10/05/2015 Ocular Lens Left: Eye Description:Body Location - Eye L. Device Status Text - OculrLens. Conversions - Default Historical Implant Device Implanted:Qty: 1 on 10/05/2015 Ocular Lens Right: Eye Description:Body Location - Eye R. Device Status Text - OculrLens. Explanted Type Area Nurse Outreach Case Manager Device Identifier Shelf Expiration Date Model / Serial / Lot Stnt Uret Inl [id number] - [id number] Implanted:Qty : 1 on 07/05/2018 by Marium Gutierrez M.D. at [facility] Explanted:Qty : 1 on 07/10/2018 by Elvin Cabrales M.D. Ureteral Stent Left: Ureter C.R.Bard [id number] 04/26/2022 [id number] / / [id number] Procedures Procedure Name Priority Date/Time Associated Diagnosis Comments LIPID PANEL, S Routine 03/30/2023 9:02 AM SAND CUTTER Coronary Arterial Bypass Graft Status Post Personal History Atherosclerosis Of Coronary Artery Bypass Graft Without Angina Pectoris NT-PRO B-TYPE NATRIURETIC PEPTIDE (BNP), S Routine 03/30/2023 9:02 AM SAND CUTTER Dyspnea On Exertion CBC WITHOUT DIFFERENTIAL, B Routine 03/30/2023 9:02 AM SAND CUTTER Dyspnea On Exertion BASIC METABOLIC PANEL, S/P Routine 03/30/2023 9:02 AM SAND CUTTER Dyspnea On Exertion HEMOGLOBIN A1C, B Routine 11/18/2022 8:3 3 AM CDT 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) ALBUMIN, RANDOM, U Routine 12/29/2021 9: 30 AM SAND CUTTER 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) from Last 3 Months or Most Recently Relevant to Health Maintenance Results * Lipid Panel (03/30/2023 9:02 AM [facility]) Triglycerides 75 mg/dL 03/30/2023 10:21 AM [facility] CNFL Comment: ----REFERENCE VALUE---- Normal: <150 mg/dL Borderline High: 150-199 mg/dL High: 200-499 mg/dL Very High: > or =500 mg/dL Cholesterol, Total 101 mg/dL 2023 10:21 AM [facility] CNFL Comment: ----REFERENCE VALUE---- Desirable: < 200 mg/dL Borderline High: 200 - 239 mg/dL High: > or = 240 mg/dL Cholesterol, LDL, Calculated 41 mg/dL 03/30/2023 10:21 AM [facility] CNFL Comment: ----REFERENCE VALUE---- Desirable: <100 mg/dL Above Desirable: 100-129 mg/dL Borderline High: 130-159 mg/dL High: 160-189 mg/dL Very High: >=190 mg/dL ----ADDITIONAL INFORMATION---- LDL cholesterol calculated using the Connolly/NIH equation. Cholesterol, HDL 44 >=40 mg/dL 03/30/2023 10:21 AM [facility] CNFL Cholesterol, Non-HDL, Calculated 57 mg/dL 03/30/2023 10:21 AM [facility] CNFL Comment: ----REFERENCE VALUE---- Desirable: <130 mg/dL Above Desirable: 130-159 mg/dL Borderline High: 160-189 mg/dL High: 190-219 mg/dL Very High: > or =220 mg/dL Fasting (8 HR or more) Unknown 03/30/2023 10:02 AM [facility] CNSC Blood (Blood, Venous) 03/30/2023 9:02 AM SAND CUTTER 03/30/2023 10:01 AM SAND CUTTER Virgil Saucedo M.D. LAB BLOOD ADD-ON [facility] [address] [place] [address], [address] [address] * NT-Pro B-Type Natriuretic Peptide (BNP) (03/30/2023 9:02 AM SAND CUTTER) NT-Pro BNP 66 <=540 pg/mL 03/30/2023 9:37 AM SAND CUTTER CNFL Comment: NT-proBNP values less than 300 [...] failure. Blood (Blood, Venous) 03/30/2023 9:02 AM SAND CUTTER 03/30/2023 9:04 AM SAND CUTTER Virgil Saucedo M.D. LAB BLOOD ADD-ON [facility] [address] [place] [address], [address] [address] * (ABNORMAL) CBC without Differential (03/30/2023 9:02 AM SAND CUTTER) Hemoglobin 15.9 13.2 - 16.6 g/dL 03/30/2023 9:23 AM SAND CUTTER CNFL Hematocrit 48.8(H) 38.3 - 48.6 % 03/30/2023 9:23 AM SAND CUTTER CNFL Erythrocytes 5.69(H) 4.35 - 5.65 x10(12)/L 03/30/2023 9:23 AM SAND CUTTER CNFL MCV 85.8 78.2 - 97.9 fL 03/30/2023 9:23 AM SAND CUTTER CNFL RBC Distrib Width 13.8 11.8 - 14.5 % 03/30/2023 9:23 AM SAND CUTTER CNFL Platelet Count 202 135 - 317 x10(9)/L 03/30/2023 9:23 AM SAND CUTTER CNFL Leukocytes 7.1 3.4 - 9.6 x10(9)/L 03/30/2023 9:23 AM SAND CUTTER CNFL Blood (Blood, Venous) 03/30/2023 9:02 AM SAND CUTTER 03/30/2023 9:04 AM SAND CUTTER Virgil Saucedo M.D. LAB BLOOD ADD-ON [facility] [address] [place] [address], [facility] CNFL [facility] [place] [address] * (ABNORMAL) Basic Metabolic Panel (03/30/2023 9:02 AM SAND CUTTER) Potassium, P 4.9 3.6 - 5.2 mmol/L 03/30/2023 9:26 AM SAND CUTTER CNFL Sodium, P 142 135 - 145 mmol/L 03/30/2023 9:26 AM SAND CUTTER CNFL Chloride, P 105 98 - 107 mmol/L 03/30/2023 9:26 AM SAND CUTTER CNFL Bicarbonate, P 29 22 - 29 mmol/L 03/30/2023 9:26 AM SAND CUTTER CNFL Anion Gap, P 8 7 - 15 03/30/2023 9:26 AM SAND CUTTER CNFL BUN (Blood Urea Nitrogen), P 25(H) 8 - 24 mg/dL 03/30/2023 9:26 AM SAND CUTTER CNFL Creatinine 1.03 0.74 - 1.35 mg/dL 03/30/2023 9:26 AM SAND CUTTER CNFL Estimated GFR (eGFR) 73 >=60 mL/min/BSA 03/30/2023 9:26 AM SAND CUTTER CNFL Comment: Estimated GFR calculated using the 2020 CKD_EPI creatinine equation. Calcium, Total, P 10.2 8.8 - 10.2 mg/dL 03/30/2023 9:26 AM SAND CUTTER CNFL Glucose, P 152(H) 70 - 140 mg/dL 03/30/2023 9:26 AM SAND CUTTER CNFL Blood (Blood, Venous) 03/30/2023 9:02 AM SAND CUTTER 03/30/2023 9:04 AM SAND CUTTER Virgil Saucedo M.D. LAB BLOOD ADD-ON Performing Organization Address [facility] Co de Phone Number [facility] [address] [place] [address], [facility] CNFL [facility] [place] [facility] in [address] [address] * (ABNORMAL) Hemoglobin A1c (11/18/2022 8:33 AM [...] LAB BLOOD ADD-O N Performing Organization Address City/[facility] Co de Phone Number [facility] [address] [place] [address], [facility] RDWG [facility] [place] [facility] in [place] [address] [place] [phone] * (ABNORMAL) Albumin, Random, Urine (12/29/2021 9:30 AM SAND CUTTER) Microalbumin 175.8 mg/L 12/29/2021 9:45 AM SAND CUTTER CNFL Creatinine 330 mg/dL 12/29/2021 9:45 AM SAND CUTTER CNFL Albumin/Creatinin e Ratio 53(H) <17 mg/g 12/29/2021 9:45 AM SAND CUTTER CNFL Urine (Urine, Midstream) 12/29/2021 9:30 AM SAND CUTTER 12/29/2021 9:30 AM SAND CUTTER Mitesh Jean M.D., Ph.D. LAB URINE ORDER [place] [facility] [id number] [place] [address], [place] CNFL [facility] [place] [facility] in [place] [id number] [place] [phone] from Last 3 Months or Most Recently Relevant to Health Maintenance Advance Directives For more information, please contact: [phone] Documents on File Type Date Recorded Patient Metal Tile Setter Expl anation Advance Directives 05/29/2012 12:00 AM Leg acy document. See document viewer. * Full Code (Latest Code Status on File) Date Activated Date Inactivated Comments 05/29/2020 8:01 PM 06/03/2020 1:44 PM Question Answer Comments Full Code: Discussed * Full Code Date Activated Date Inactivated Comments 05/24/2020 12:09 PM 05/29/2020 8:01 PM Question Answer Comments Full Code: Discussed Care Teams Inpatient Auditor Relationship Specialty Start Date End Date Mitesh Jean M.D., Ph.D. [address] [place] [address] PCP - General Family Medicine 06/04/20
--- OUTSIDE RECORDS SUMMARY | 2023-06-21 09:13 | XMS_ITS | Encounter Summary ---
Author Name Unknown Organization [facility] Address [address] [place] [address] Care Team Providers Care Hand Edger Name Role Phone Mitesh Jean M.D., Ph.D. Primary Care Provider Encounter Details Date Type Department Care Team (Late st Contact Info) Description 06/20/2023 Orders Only [facility] Mitesh Rudolph M.D., Ph.D. 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) Social History Tobacco Use Types Packs/Day Years Used Date Smoking Tobacco: Former Cigarettes Q uit: 1979 Smokeless Tobacco: Current Chew Alcohol Use Standard [...] Date Recorded Dental: Regular Dentist Unknown 04/04/19 21 Sex and Gender Information Value Date Recorded Sex Assigned at Male 11/03/2020 9:23 AM CDT Gender Identity Not on file Sexual Orientation Not on file documented as of this encounter Plan of Treatment Upcoming Encounters Date Type Department Care Team (Late st Contact Info) Description 08/03/2023 8:00 AM CDT Appointment Department of Laboratory Medicine and Pathology, [place], [place] [address] [place] [phone] Juanita Grant APRN, C.N.PRamona, M.S.N. [address] [place] [phone] 08/03/2023 8:45 AM CDT Appointment Department of Radiology, [place], [place] [address] [place] [phone] Juanita Grant APRN, C.NMitul, M.S.N. [address] [place] [phone] 08/03/2023 2:30 PM CDT Office Visit Department of Radiology, [place], [place] [address] [place] [address] Juanita Grant APRN, C.N.PRamona, M.S.N. 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 [address] [place] [address] [place] [phone] PCP - General Family Medicine 06/04/20 documented as of this encounter
--- OUTSIDE RECORDS SUMMARY | 2023-06-21 09:14 | XMS_ITS | Encounter Summary ---
Author Name Unknown Organization [facility] Address [address] [place] [address] Care Team Providers Care Ornamental Ironworking Supervisor Name Role Phone Mitesh Jean M.D., Ph.D. Primary Care Provider Encounter Details Date Type Department Care Team (Latest Contact Info) Description 03/30/2023 8:40 AM ANGIOGRAPHY NURSE - 03/30/2023 9:55 AM [facility] Hospital Encounter Department of Laboratory Medicine in [address] [phone] Virgil Saucedo M.D. [address] [place] [phone] Dyspnea On Exertion; Coronary Arterial Bypass Graft Status Post Personal History Discharge Disposition: Home or Self Care Social [...] tablet 11/03/2022 documented as of this encounter Plan of Treatment Upcoming Encounters Date Type Department Care Team (Late st Contact Info) Description 08/03/2023 8:00 AM CDT Appointment Department of Laboratory Medicine and Pathology, [facility], in [place], [place] [address] [place] [address] Juaniat Grant APRN, C.N.P., M.S.N. [address] [place] [phone] 08/03/2023 8:45 AM CDT Appointment Department of Radiology, [facility] in [place], [place] [address] [place] [address] Juanita Grant APRN, C.N.P., M.S.N. [address] [place] [phone] 08/03/2023 2:30 PM CDT Office Visit Department of Radiology, [facility], in [place], [place] [address] [place] [phone] Juanita Grant APRN, C.N.P., M.S.N. [address] [place] [phone] documented as of this encounter Procedures Procedure Name Priority Date/Time Associated Diagnosis Comments NT-PRO B-TYPE NATRIURETIC PEPTIDE (BNP), S Routine 03/30/2023 9:02 AM ANGIOGRAPHY NURSE Dyspnea On Exertion CBC WITHOUT DIFFERENTIAL, B Routine 03/30/2023 9:02 AM ANGIOGRAPHY NURSE Dyspnea On Exertion BASIC METABOLIC PANEL, S/P Routine 03/30/2023 9:02 AM ANGIOGRAPHY NURSE Dyspnea On Exertion documented in this encounter Results * NT-Pro B-Type Natriuretic Peptide (BNP) (03/30/2023 9:02 AM ANGIOGRAPHY NURSE) NT-Pro BNP 66 <=540 pg/mL 03/30/2023 9:37 AM ANGIOGRAPHY NURSE CNFL Comment: NT-proBNP values less than 300 [...] failure. Blood (Blood, Venous) 03/30/2023 9:02 AM ANGIOGRAPHY NURSE 03/30/2023 9:04 AM ANGIOGRAPHY NURSE Virgil Saucedo M.D. LAB BLOOD ADD-ON [facility] [address] [place] [address], [address] [address] * (ABNORMAL) CBC without Differential (03/30/2023 9:02 AM ANGIOGRAPHY NURSE) Pathologist [facility] Hemoglobin 15.9 13.2 - 16.6 g/dL 03/30/2023 9:23 AM ANGIOGRAPHY NURSE CNFL Hematocrit 48.8(H) 38.3 - 48.6 % 03/30/2023 9:23 AM ANGIOGRAPHY NURSE CNFL Erythrocytes 5.69(H) 4.35 - 5.65 x10(12)/L 03/30/2023 9:23 AM ANGIOGRAPHY NURSE CNFL MCV 85.8 78.2 - 97.9 fL 03/30/2023 9:23 AM ANGIOGRAPHY NURSE CNFL RBC Distrib Width 13.8 11.8 - 14.5 % 03/30/2023 9:23 AM ANGIOGRAPHY NURSE CNFL Platelet Count 202 135 - 317 x10(9)/L 03/30/2023 9:23 AM ANGIOGRAPHY NURSE CNFL Leukocytes 7.1 3.4 - 9.6 x10(9)/L 03/30/2023 9:23 AM ANGIOGRAPHY NURSE CNFL Blood (Blood, Venous) 03/30/2023 9:02 AM ANGIOGRAPHY NURSE 03/30/2023 9:04 AM ANGIOGRAPHY NURSE Virgil Saucedo M.D. LAB BLOOD ADD-ON [facility] [address] [place] [address], [address] [address] * (ABNORMAL) Basic Metabolic Panel (03/30/2023 9:02 AM ANGIOGRAPHY NURSE) Potassium, P 4.9 3.6 - 5.2 mmol/L 03/30/2023 9:26 AM ANGIOGRAPHY NURSE CNFL Sodium, P 142 135 - 145 mmol/L 03/30/2023 9:26 AM ANGIOGRAPHY NURSE CNFL Chloride, P 105 98 - 107 mmol/L 03/30/2023 9:26 AM ANGIOGRAPHY NURSE CNFL Bicarbonate, P 29 22 - 29 mmol/L 03/30/2023 9:26 AM ANGIOGRAPHY NURSE CNFL Anion Gap, P 8 7 - 15 03/30/2023 9:26 AM ANGIOGRAPHY NURSE CNFL BUN (Blood Urea Nitrogen), P 25(H) 8 - 24 mg/dL 03/30/2023 9:26 AM ANGIOGRAPHY NURSE CNFL Creatinine 1.03 0.74 - 1.35 mg/dL 03/30/2023 9:26 AM ANGIOGRAPHY NURSE CNFL Estimated GFR (eGFR) 73 >=60 mL/min/BSA 03/30/2023 9:26 AM ANGIOGRAPHY NURSE CNFL Comment: Estimated GFR calculated using the 2020 CKD_EPI creatinine equation. Calcium, Total, P 10.2 8.8 - 10.2 mg/dL 03/30/2023 9:26 AM ANGIOGRAPHY NURSE CNFL Glucose, P 152(H) 70 - 140 mg/dL 03/30/2023 9:26 AM ANGIOGRAPHY NURSE CNFL Blood (Blood, Venous) 03/30/2023 9:02 AM ANGIOGRAPHY NURSE 03/30/2023 9:04 AM ANGIOGRAPHY NURSE Virgil Saucedo M.D. LAB BLOOD ADD-ON Performing Organization Address City/State/[place] Co de Phone Number [facility] [address] [place] [address], [facility] CNFL [facility] in [address] [address] documented in this encounter Visit Diagnoses Diagnosis Dyspnea On Exertion Coronary Arterial Bypass Graft Status Post Personal History documented in this encounter Additional Health Concerns Assessment Noted Time PHQ-9 Depression Total Score: 1 06/17/19 21 1:53 PM CDT documented as of this encounter Care Teams Ornamental Ironworking Supervisor Relationship Specialty Start Date End Date Mitesh Jean M.D., Ph.D. [address] [phone] PCP - General Family Medicine 06/04/20 documented as of this encounter
--- OUTSIDE RECORDS SUMMARY | 2023-06-21 09:14 | XMS_ITS | Encounter Summary ---
Author Name Unknown Organization [facility] Address [address] [place] [address] Care Team Providers Care Regular Senior Care Provider Name Role Phone Mitesh Jean M.D., Ph.D. Primary Care Provider Reason for Referral * Outpatient (Routine) - Authorized Specialty Diagnoses / Procedures Referred By Perfecto t Referred To Contact Family Medicine Mitesh Jean M.D., Ph.D. [address] [place] [phone] [facility] Referral ID Status Reason Start Date Expiration Date V isits Requested Visits Authorized [id number] Authorized 03/21/2023 09/19/2024 1 1 Scheduling Instructions Medicare annual provider visit/HCC gaps Do not schedule prior to due date to ensure insurance coverage Visit: Medicare Annual Wellness Never done. CLUB TRAVEL COUNSELOR Encounter Details Date Type Department Care Team (Late st Contact Info) Description 03/21/2023 [facility] Only [facility] Mitesh Jean M.D., Ph.D. [address] [place] [phone] Diabetes Mellitus Type 2 With Other [...] Appointment Department of Laboratory Medicine and Pathology, [place], [place] [address] [place] [address] Juanita Grant APRN, C.N.P., M.S.N. [address] [place] [phone] 08/03/2023 8:45 AM CDT Appointment Department of Radiology, [place], [place] [address] [place] [address] Juanita Grant APRN, C.N.P., M.S.N. [address] [place] [phone] 08/03/2023 2:30 PM CDT Office Visit Department of Radiology, [place], [place] [address] [place] [address] Juanita Grant APRN C.N.P., M.S.N. 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 [address] [place] [phone] PCP - General Family Medicine 06/04/20 documented as of this encounter
== END 2023-06-19 13:51 | disposition home or self-care (01) ==
LOC: NFLDREF 06-21 09:11
PROVIDERS: PCP Nurse Practitioner Family; Referring Provider Nurse Practitioner Family; Visit Provider Internal Medicine
DX: N39.0 Urinary tract infection, site not specified (principal); B96.20 Unspecified Escherichia coli [E. coli] as the cause of diseases classified elsewhere
CPT/HCPCS: 87086; 87186

== ENCOUNTER 2023-07-11 07:40 | Outpatient (CLI) | payer MEDICARE, BC, SELFPAY ==
--- OUTSIDE RECORDS SUMMARY | 2023-07-11 07:44 | XMS_ITS ---
Author Organization [facility] Address [address] [place] [address] Care Team Providers Care Electric Appliance Installer Name Role Phone Unavailable Unavailable Unavailable Surgery Details Not on file Complications Check Surgery Details section. Procedure Estimated Blood Loss Check Surgery Details section. Procedure Findings Check Surgery Details section. Procedure Specimens Taken Check Surgery Details section.
--- OUTSIDE RECORDS SUMMARY | 2023-07-11 07:44 | XMS_ITS | Referral Summary ---
Author Organization [facility] Address [address] [place] [address] Care Team Providers Care Wooden Boat Builder Name Role Phone Dayami Pisano APRN, C.N.P. Primary Care Provide r Source Comments Patient records contain information from all sites at [facility]. For routine questions regarding patient records, call [phone] during business hours, M-F 8:00 AM - 5:00 PM Central Time. Record requests for emergency care only can be directed to [phone] at any time.[facility] Encounters Date Type Department Care Team Description 06/20/2023 Orders Only [facility] Mitesh Rudolph M.D., Ph.D. 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 90 tablet 3 01/06/2023 Active lisinopriL (PRINIVIL,ZESTRIL ) 10 mg tablet Take 1 tablet (10 mg total) by mouth daily. 90 tablet 3 02/23/2023 Active isosorbide mononitrate (IMDUR) 30 mg 24 hr tablet Take 1 tablet (30 mg total) by mouth daily. 90 tablet 3 02/23/2023 Active neomycin-polymyxi n-dexamethasone (MAXITROL) 3.5mg/mL-10,000 unit/mL-0.1 % ophthalmic suspension Administer 1 drop into the right eye 6 (six) times a day, then taper as directed; shake before use 5 mL 1 04/24/2023 Active sulfamethoxazole- trimethoprim (BACTRIM DS) 800-160 mg per tablet Take 1 tablet by mouth 2 (two) times a day. 10 tablet 06/19/2023 Active nitroglycerin (NITROSTAT) 0.[address] 1 tablet (0.4 mg) under the tongue every 5 minutes as needed for chest pain; do not exceed 3 doses per episode. 25 tablet 06/29/2023 Active nitroglycerin (NITROSTAT) 0.[address] 1 tablet (0.4 mg) under the tongue every 5 minutes as needed for chest pain. Do not exceed 3 doses per episode. 25 tablet 11/03/2022 4 Discontinue d(Reorder) Active Problems Problem Noted Date Diagnosed Date Pain Right Upper Quadrant 04/03/2021 Overview: Added automatically from request for surgery [id number] Pain Epigastric 04/03/2021 Overview: Added automatically from request for surgery [id number] Dysphagia 04/03/2021 Overview: Added automatically from request for surgery [id number] Bypass Coronary Artery Graft Status Post 021 [...] Cervical 05/07/2015 Atherosclerotic Heart Diseas e Of [place] Coronary Artery Without Angina Pectoris 09/30/2013 Overview: [...] Overview: Added automatically from request for surgery [id number] Helicobacter Pylori As The C ause Of [...] Q uit: 1980 Smokeless Tobacco: Current Chew Tobacco Cessation:Ready to [...] Comments Blood Pressure 116/76 03/30/2023 9:06 AM MILLWRIGHT HELPER Pulse 61 03/30/2023 9:06 AM MILLWRIGHT HELPER Temperature 36.7 ??C (98.1 ??F) 03/30/2023 9:06 AM CS T Respiratory Rate 17 11/01/2022 5:00 PM CDT Oxygen Saturation 95% 03/30/2023 9:06 AM MILLWRIGHT HELPER Inhaled Oxygen Concentration - - Weight 101 kg (221 lb 9 oz) 03/30/2023 9:[address] Height 169 cm (5' 6.54) 04/27/2021 9:26 AM CDT Body Mass Index 35.19 04/27/2021 9:26 AM CDT Plan of Treatment Upcoming Encounters Date Type Department Care Team (Late st Contact Info) Description 08/03/2023 8:00 AM CDT Appointment Department of Laboratory Medicine and Pathology, [place], [place] [address] [place] [phone] Juanita Grant APRN, C.NRamonaP., M.S.N. [address] [place] [phone] 08/03/2023 8:45 AM CDT Appointment Department of Radiology, [place], [place] [address] [place] [phone] Juanita Grant APRN, C.NRamonaP., M.S.N. [address] [place] [phone] 08/03/2023 2:30 PM CDT Office Visit Department of Radiology, [place], [place] [address] [place] [address] Juanita Grant APRN, C.N.P., M.S.N. [address] [place] [phone] Medical Devices Implanted Type Area Bandmill Operator Device Identifier Shelf Expiration Date Model / Serial / Lot Clp Hrzn Ti 24 Clp Sm Red - [id number] Implanted:Qty: 1 on 05/29/2020 by Lisa Trinidad M.D., M.P.H. at [facility] Hardware e.g. pins/screws /rods N/A: [employer] [id number] / / Clp Hrzn Ti 24 Clp Sm Red - [id number] Implanted:Qty: 2 on 05/29/2020 by Lisa Trinidad M.D., M.P.H. at [facility] Hardware e.g. pins/screws /rods N/A: [employer] [id number] / / Clp Hrzn Ti 24 Clp [place]ina - [id number] Implanted:Qty: 1 on 05/29/2020 by Lisa Trinidad M.D., M.P.H. at [facility] Hardware e.g. pins/screws /rods N/A: [employer] [id number] / / Clp Hrzn Ti 24 Clp Sm Red - [id number] Implanted:Qty: 1 on 05/29/2020 by Michel Luke M.B. at [facility] Hardware e.g. pins/screws /rods Left: [employer] [id number] 11/30/2024 [id number] / / [id number] Clp Hrzn Ti 24 Clp [place] - [id number] Implanted:Qty: 1 on 05/29/2020 by Michel Luke M.B. at [facility] Hardware e.g. pins/screws /rods Left: [employer] [id number] 10/07/2024 [id number] / / [id number] Knee Implant Knee Implant Knee Conversions - Default Historical Implant Device Implanted:Qty: 1 on 10/05/2015 Ocular Lens Left: Eye Description:Body Location - Eye L. Device Status Text - OculrLens. Conversions - Default Historical Implant Device Implanted:Qty: 1 on 10/05/2015 Ocular Lens Right: Eye Description:Body Location - Eye R. Device Status Text - OculrLens. Explanted Type Area Bandmill Operator Device Identifier Shelf Expiration Date Model / Serial / Lot Stnt Uret Inl 7fx26 - [id number] Implanted:Qty : 1 on 07/05/2018 by Marium Gutierrez M.D. at [facility] Explanted:Qty : 1 on 07/10/2018 by Elvin Cabrales M.D. 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) from Last 3 Months or Most Recently Relevant to Health Maintenance Results * (ABNORMAL) Basic Metabolic Panel (03/30/2023 9:02 AM MILLWRIGHT HELPER) Potassium, P 4.9 3.6 - 5.2 mmol/L 03/30/2023 9:26 AM MILLWRIGHT HELPER CNFL Sodium, P 142 135 - 145 mmol/L 03/30/2023 9:26 AM MILLWRIGHT HELPER CNFL Chloride, P 105 98 - 107 mmol/L 03/30/2023 9:26 AM MILLWRIGHT HELPER CNFL Bicarbonate, P 29 22 - 29 mmol/L 03/30/2023 9:26 AM MILLWRIGHT HELPER CNFL Anion Gap, P 8 7 - 15 03/30/2023 9:26 AM MILLWRIGHT HELPER CNFL BUN (Blood Urea Nitrogen), P 25(H) 8 - 24 mg/dL 03/30/2023 9:26 AM MILLWRIGHT HELPER CNFL Creatinine 1.03 0.74 - 1.35 mg/dL 03/30/2023 9:26 AM MILLWRIGHT HELPER CNFL Estimated GFR (eGFR) 73 >=60 mL/min/BSA 03/30/2023 9:26 AM MILLWRIGHT HELPER CNFL Comment: Estimated GFR calculated using the 2020 CKD_EPI creatinine equation. Calcium, Total, P 10.2 8.8 - 10.2 mg/dL 03/30/2023 9:26 AM MILLWRIGHT HELPER CNFL Glucose, P 152(H) 70 - 140 mg/dL 03/30/2023 9:26 AM MILLWRIGHT HELPER CNFL Blood (Blood, Venous) 03/30/2023 9:02 AM MILLWRIGHT HELPER 03/30/2023 9:04 AM MILLWRIGHT HELPER Virgil Saucedo M.D. LAB BLOOD ADD-ON [facility] [address] [place] [address], [facility] CNFL [facility] in [address] [address] * (ABNORMAL) Hemoglobin A1c (11/18/2022 8:33 AM [...] Jean M.D., Ph.D. LAB BLOOD ADD-O N [facility] [address] [place] [address], [facility] RDWG [facility] in [address] [address] * (ABNORMAL) Albumin, Random, Urine (12/29/2021 9:30 AM MILLWRIGHT HELPER) Microalbumin 175.8 mg/L 12/29/2021 9:45 AM MILLWRIGHT HELPER CNFL Creatinine 330 mg/dL 12/29/2021 9:45 AM MILLWRIGHT HELPER CNFL Albumin/Creatinin e Ratio 53(H) <17 mg/g 12/29/2021 9:45 AM MILLWRIGHT HELPER CNFL Urine (Urine, Midstream) 12/29/2021 9:30 AM MILLWRIGHT HELPER 12/29/2021 9:30 AM MILLWRIGHT HELPER Mitesh Jean M.D., Ph.D. LAB URINE ORDER MIKAL [facility] [address] [address], [place] CNFL [facility] in [place] [address] [facility] [address] [place] [address] from Last 3 Months or Most Recently Relevant to Health Maintenance Advance Directives For more information, please contact: [phone] Documents on File Type Date Recorded Patient Ice Cream Dipper Expl anation Advance Directives 05/29/2012 12:00 AM Leg acy document. See document viewer. * Full Code (Latest Code Status on File) Date Activated Date Inactivated Comments 05/29/2020 8:01 PM 06/03/2020 1:44 PM Question Answer Comments Full Code: Discussed * Full Code Date Activated Date Inactivated Comments 05/24/2020 12:09 PM 05/29/2020 8:01 PM Question Answer Comments Full Code: Discussed Care Teams Wooden Boat Builder Relationship Specialty Start Date End Date Dayami Pisano APRN, C.N.P. [facility] Lyle JoeZOHRA Tracey [phone] PCP - General 06/30/23
--- OUTSIDE RECORDS SUMMARY | 2023-07-11 07:44 | XMS_ITS | Clinical Summary ---
Author Organization [facility] Address [address] [place] [address] Care Team Providers Care Box Tender Name Role Phone Dayami Pisano APRN, C.N.P. Primary Care Provide r Source Comments Patient records contain information from all sites at [facility]. For routine questions regarding patient records, call [phone] during business hours, M-F 8:00 AM - 5:00 PM Central Time. 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) from Last 3 Months Immunizations Name Administration [...] Comments Blood Pressure 116/76 03/30/2023 9:06 AM CAR DRYER Pulse 61 03/30/2023 9:06 AM CAR DRYER Temperature 36.7 ??C (98.1 ??F) 03/30/2023 9:06 AM CS T Respiratory Rate 17 11/01/2022 5:00 PM CDT Oxygen Saturation 95% 03/30/2023 9:06 AM CAR DRYER Inhaled Oxygen Concentration - - Weight 101 kg (221 lb 9 oz) 03/30/2023 9:[address] Height 169 cm (5' 6.54) 04/27/2021 9:26 AM CDT Body Mass Index 35.19 04/27/2021 9:26 AM CDT Plan of Treatment Upcoming Encounters Date Type Department Care Team (Late st Contact Info) Description 08/03/2023 8:00 AM CDT Appointment Department of Laboratory Medicine and Pathology, [facility] in [place], [place] [address] [place] [phone] Juanita Grant APRN, C.N.P., M.S.N. [address] [place] [phone] 08/03/2023 8:45 AM CDT Appointment Department of Radiology, [place], [place] [address] [place] [phone] Juanita Grant APRN, C.N.P., M.S.N. [address] [place] [phone] 08/03/2023 2:30 PM CDT Office Visit Department of Radiology, [facility], in [place], [place] [address] [place] [phone] Juanita Grant APRN, C.N.P., M.S.N. [address] [place] [phone] Health Maintenance Due Date Last Done Comments [...] history exists Medical Devices Implanted Type Area Coal Grader Device Identifier Shelf Expiration Date Model / Serial / Lot Clp Hrzn Ti 24 Clp Sm Red - [id number] Implanted:Qty: 1 on 05/29/2020 by Lisa Trinidad M.D., M.P.H. at [facility] Hardware e.g. pins/screws /rods N/A: [employer] [id number] / / Clp Hrzn Ti 24 Clp Sm Red - [id number] Implanted:Qty: 2 on 05/29/2020 by Lisa Trinidad M.D., M.P.H. at [facility] Hardware e.g. pins/screws /rods N/A: [employer] [id number] / / Clp Hrzn Ti 24 Clp Molina - [id number] Implanted:Qty: 1 on 05/29/2020 by Lisa Trinidad M.D., M.P.H. at [facility] Hardware e.g. pins/screws /rods N/A: [employer] [id number] / / Clp Hrzn Ti 24 Clp Sm Red - [id number] Implanted:Qty: 1 on 05/29/2020 by Michel Luke M.B. at [facility] Hardware e.g. pins/screws /rods Left: [employer] [id number] 11/30/2024 [id number] / / [id number] Clp Hrzn Ti 24 Clp [place] - [id number] Implanted:Qty: 1 on 05/29/2020 by Michel Luke M.B. at [facility] Hardware e.g. pins/screws /rods Left: [employer] [id number] 10/07/2024 [id number] / / [id number] Knee Implant Knee Implant Knee Conversions - Default Historical Implant Device Implanted:Qty: 1 on 10/05/2015 Ocular Lens Left: Eye Description:Body Location - Eye L. Device Status Text - OculrLens. Conversions - Default Historical Implant Device Implanted:Qty: 1 on 10/05/2015 Ocular Lens Right: Eye Description:Body Location - Eye R. Device Status Text - OculrLens. Explanted Type Area Coal Grader Device Identifier Shelf Expiration Date Model / Serial / Lot Stnt Uret Inl 7fx26 - [id number] Implanted:Qty : 1 on 07/05/2018 by Marium Gutierrez M.D. at [facility] Explanted:Qty : 1 on 07/10/2018 by Elvin Cabrales M.D. 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) from Last 3 Months or Most Recently Relevant to Health Maintenance Results * (ABNORMAL) Basic Metabolic Panel (03/30/2023 9:02 AM CAR DRYER) Potassium, P 4.9 3.6 - 5.2 mmol/L 03/30/2023 9:26 AM CAR DRYER CNFL Sodium, P 142 135 - 145 mmol/L 03/30/2023 9:26 AM CAR DRYER CNFL Chloride, P 105 98 - 107 mmol/L 03/30/2023 9:26 AM CAR DRYER CNFL Bicarbonate, P 29 22 - 29 mmol/L 03/30/2023 9:26 AM CAR DRYER CNFL Anion Gap, P 8 7 - 15 03/30/2023 9:26 AM CAR DRYER CNFL BUN (Blood Urea Nitrogen), P 25(H) 8 - 24 mg/dL 03/30/2023 9:26 AM CAR DRYER CNFL Creatinine 1.03 0.74 - 1.35 mg/dL 03/30/2023 9:26 AM CAR DRYER CNFL Estimated GFR (eGFR) 73 >=60 mL/min/BSA 03/30/2023 9:26 AM CAR DRYER CNFL Comment: Estimated GFR calculated using the 2020 CKD_EPI creatinine equation. Calcium, Total, P 10.2 8.8 - 10.2 mg/dL 03/30/2023 9:26 AM CAR DRYER CNFL Glucose, P 152(H) 70 - 140 mg/dL 03/30/2023 9:26 AM CAR DRYER CNFL Blood (Blood, Venous) 03/30/2023 9:02 AM CAR DRYER 03/30/2023 9:04 AM CAR DRYER Virgil Saucedo M.D. LAB BLOOD ADD-ON Performing Organization Address [facility] de Phone Number [facility] [address] [place] [address], [facility] CNFL [facility] [place] in [address] [address] * (ABNORMAL) Hemoglobin A1c (11/18/2022 8:33 AM [...] LAB BLOOD ADD-O N Performing Organization Address City/[facility] Co de Phone Number [facility] [address] [place] [address], [place] RDWG [facility] [place] in [place] [address] [place] [address] * (ABNORMAL) Albumin, Random, Urine (12/29/2021 9:30 AM CAR DRYER) Microalbumin 175.8 mg/L 12/29/2021 9:45 AM CAR DRYER CNFL Creatinine 330 mg/dL 12/29/2021 9:45 AM CAR DRYER CNFL Albumin/Creatinin e Ratio 53(H) <17 mg/g 12/29/2021 9:45 AM CAR DRYER CNFL Urine (Urine, Midstream) 12/29/2021 9:30 AM CAR DRYER 12/29/2021 9:30 AM CAR DRYER Mitesh Jean M.D., Ph.D. LAB URINE ORDER MIKAL [facility] [id number] [place] [address], [place] CNFL [facility] [place] in [place] [id number] [place] [address] from Last 3 Months or Most Recently Relevant to Health Maintenance Advance Directives For more information, please contact: [phone] Documents on File Type Date Recorded Patient Shoeshiner Expl anation Advance Directives 05/29/2012 12:00 AM Leg acy document. See document viewer. * Full Code (Latest Code Status on File) Date Activated Date Inactivated Comments 05/29/2020 8:01 PM 06/03/2020 1:44 PM Question Answer Comments Full Code: Discussed * Full Code Date Activated Date Inactivated Comments 05/24/2020 12:09 PM 05/29/2020 8:01 PM Question Answer Comments Full Code: Discussed Care Teams Box Tender Relationship Specialty Start Date End Date Dayami Pisano APRN, C.N.P. [address] [facility] [place] [id number] [facility] - General 06/30/23
--- OUTSIDE RECORDS SUMMARY | 2023-07-11 07:44 | XMS_ITS ---
Author Organization [facility] Address [address] [place] [address] Care Team Providers Care Ct Scan Tech Name Role Phone Dayami Pisano APRN, C.N.P. 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 Treatments may have been administered in another [...] Overview: Added automatically from request for surgery [id number] Helicobacter Pylori As The C ause Of Diseases Classified Elsewhere 10/18/2016 06/06/2018 Fasciitis Plantar 07/10/2013 06/06/2018 Overview: left date of onset Coronary Artery Disease (Unspecified) 04/16/2008 06/06/2018
--- OUTSIDE RECORDS SUMMARY | 2023-07-11 07:44 | XMS_ITS | Encounter Summary ---
Author Organization [facility] Address [address] [place] [address] Care Team Providers Care 911 Operator Name Role Phone Mitesh Jean M.D., Ph.D. Primary Care Provider Encounter Details Date Type Department Care Team (Late st Contact Info) Description 06/20/2023 Orders Only [facility] PCP [facility] Mitesh Rudolph M.D., Ph.D. [address] [place] [phone] Diabetes Mellitus Type 2 With Other Circulatory [...] Appointment Department of Laboratory Medicine and Pathology, [facility] in [place], [place] [address] [place] [phone] Juanita Grant APRN, C.N.PRamona, M.S.N. [address] [place] [phone] 08/03/2023 8:45 AM CDT Appointment Department of Radiology, [place], [place] [address] [place] [phone] Juanita Grant APRN, C.N.Arthur, M.S.N. [address] [place] [phone] 08/03/2023 2:30 PM CDT Office Visit Department of Radiology, [place], [place] [address] [place] [address] Juanita Grant APRN, C.N.PRamona, M.S.N. 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 PCP - General Family Medicine 06/04/20 06/29/23 documented as of this encounter
== END 2023-07-11 07:41 | disposition home or self-care (01) ==
PROVIDERS: PCP Nurse Practitioner Family; Visit Provider Nurse Practitioner Family
DX: E11.9 Type 2 diabetes mellitus without complications (principal); E78.5 Hyperlipidemia, unspecified; I10 Essential (primary) hypertension
CPT/HCPCS: 80053; 80061; 82043; 82570; 82607; 84439; 84443

== ENCOUNTER 2023-10-20 12:50 | Outpatient (CLI) | payer MEDICARE, BC, SELFPAY | END 2023-10-20 12:51 | disposition home or self-care (01) | PROVIDERS: PCP Nurse Practitioner Family; Visit Provider Nurse Practitioner Family | DX: R74.8 Abnormal levels of other serum enzymes (principal); E11.9 Type 2 diabetes mellitus without complications | CPT/HCPCS: 80076; 85025 ==

== ENCOUNTER 2024-03-17 10:44 | Emergency (ER) | payer MEDICARE, BC, SELFPAY ==
--- OUTSIDE RECORDS SUMMARY | 2024-03-17 10:46 | XMS_ITS | Encounter Summary ---
Author Name [facility] Organization [facility] [place] Address [address] [place] [address] Care Team Providers Care Front Desk Agent Name Role Phone STANLEY BURCIAGA Primary Care Provider Unavailkeon e Insurance Providers: All historical and current Section Date Range: From patient's date of to the date document was created. This section includes the names of all active insurance providers for the patient. Insurance Provider Type of Coverage Plan Name Start of Policy Coverage End of Policy Coverage Group Number Member ID Insurance Provider's Telephone Number Policy Singh's Name Patient's Relationship to Policy Singh [place] SU[place] BRIAN SENIO R GOLD INDIV IDU Feb 14, 2016 [id number] TIX,WILFR ED PATIENT [place] MED[place] SUPPL EMENT Feb 14, 2016 [id number] [phone] TIX,WILFR ED PATIENT [place] SUPPLEMEN BRIAN MEDIC ARE SUPPL EMENT Feb 14, 2016 [id number] [phone] TIX,WILFR ED PATIENT MEDICARE (WNR) MEDICARE (M) PART A Apr 13, 2005 PART A [id number] [phone] TIX,WILFR ED PATIENT MEDICARE (WNR) MEDICARE (M) PART B Apr 13, 2005 PART B [id number] [phone] TIX,WILFR ED PATIENT Selected Encounter This section includes the information on record at [place] for the Encounter. Date/Time Encounter Type Encounter Description Reason Provider Source Dec 18, 2023 07:45 AM HEARING AID REPAIR/MODIFYIN G AUDIOLOGY ICD-10-CM H90.3 Sensorineural hearing loss, bilateral HANCORYANJELICA SHEFALI [place] [facility] Encounter Template Text not used by [place] Assessments - Encounter Diagnoses This section includes the primary and secondary diagnoses documented for the Encounter. Date/Time Primary/Secondary Diagnosis Diagnosis Name Provider Source Dec 18, 2023 08:09 AM PRIMARY Sensorineural hearing loss, bilateral MARILUZ SHORT [facility] Dec 18, 2023 08:09 AM SECONDARY Encounter for fitting and adjustment of hearing aid MARILUZ SHORT [facility] Social History: Smoking Status (Most current) and Tobacco Use (All prior to encounter date) This section includes the most current, and the historical, smoking and tobacco- related health factors from the [place] facility where the Encounter took place. Current Smoking Status This section includes the most current smoking, or tobacco-related health factor, from the [place] facility where the Encounter took place. Date/Time Current Smoking Status Comment Bill ity Dec 13, 2021 08:30 AM VA-TOBACCO USER EVERY DAY [facility] Tobacco Use History This section includes a history of the smoking, or tobacco-related health factors, that were collected on or before the date of the Encounter. The data comes from the [place] facility where the Encounter took place. Date/Time Smoking Status/Tobacco Use Comment F acility Dec 13, 2021 08:30 AM VA-TOBACCO USE 30 YEARS OR MORE [facility] Dec 13, 2021 08:30 AM VA-TOBACCO USE ADVICE [facility] Dec 13, 2021 08:30 AM VA-TOBACCO USE [place]OWNFIELD PROGRAM COORDINATOR NO [facility] Dec 13, 2021 08:30 AM VA-TOBACCO USE MED NO [facility] Dec 13, 2021 08:30 AM VA-TOBACCO USER EVERY DAY [facility] Oct 08, 2020 03:06 PM VA-TOBACCO DOESNT USE WI 30 MIN WAKEUP [facility] Oct 08, 2020 03:06 PM VA-TOBACCO USE 30 YEARS OR MORE [facility] Oct 08, 2020 03:06 PM VA-TOBACCO USE ADVICE [facility] Oct 08, 2020 03:06 PM VA-TOBACCO USE [place]OWNFIELD PROGRAM COORDINATOR NO [facility] Oct 08, 2020 03:06 PM VA-TOBACCO USE MED NO [facility] Oct 08, 2020 03:06 PM VA-TOBACCO USER SOME DAYS [facility] Sep 27, 2018 08:28 AM VA-TOBACCO FORMER USER [facility] Sep 27, 2018 08:28 AM VA-TOBACCO QUIT 15 YRS OR MORE [facility] Encounter Notes: All associated encounter notes This section contains the clinical notes associated to the Encounter. Date/Time Encounter Note(s) Provider Source Dec 18, 2023 08:02 AM AUDIOLOGY NOTE: LOCAL TITLE: AUDIOLOGY CLINIC NOTE STANDARD TITLE: AUDIOLOGY NOTE DATE OF NOTE: DEC 18, 2023@08:02 ENTRY DATE: DEC 18, 2023@08:02:25 AUTHOR: MORA LOZADA COSIGNER: KRISTIAN SHORT URGENCY: STATUS: COMPLETED AUDIOLOGY CLINIC NOTE Has ADDENDA DIAGNOSIS Encounter for fitting and Adjustment of Hearing Aids Sensorineural Hearing Loss, Bilateral Reason for Visit: Hearing Aid Service Location of Visit(Room Number):22109 [place] was seen for Hearing Aid Service/Repair: 30 minute Appointment Otoscopy: Free of Excessive Cerumen, Normal anatomy bilaterally DIAGNOSIS History: Patient seen for a hearing aid service/hearing aid check Make:PHONAK Model: [employer] games L90-R [facility] Serial Number:[id number] Dome/Mold: MEDIUM VENTED The following Hearing aid problem(s) were presented Right Hearing Aid:PAIRING ISSUES, INTERMITTANT, DROPS CALLS Left Hearing Aid:SAME ABOVE Action: Problem will require repair by game trapper and both aid(s) were mailed to game trapper today. Device can be programmed/ mailed to once repaired. [place] was counseled using a curriculum on the cleaning,care and use of hearing aids. Plan: Vet will contact call center as needed for follow up Patient is in agreement with this plan. Layer Out Plate Glass:MAIL REPAIRED AIDS TO WHEN RECEIVED /colleen/ MORA LOZADA AUDIO TECH Signed: 12/18/2023 08:10 /colleen/ Cristal MONSIVAIS CCC-A FRENCH LECTURER Cosigned: 12/18/2023 08:14 12/27/2023 ADDENDUM STATUS: COMPLETED MAILING REPAIRED HEARING AIDS TO THE ADDRESS ON FILE /prakash Singh [facility]AST[facility] TREATMENT TECHNICIAN Signed: 12/27/2023 11:26 /colleen/ LUZMA GALVEZ FRENCH LECTURER Cosigned: 12/27/2023 12:01 MORA LOZADA [facility]
--- OUTSIDE RECORDS SUMMARY | 2024-03-17 10:46 | XMS_ITS | Encounter Summary ---
Author Organization [facility] Address [address] [place] [address] Care Team Providers Care Senior Paralegal Name Role Phone Dayami Pisano APRN, C.N.P. Primary Care Provide r Reason for Visit * Reason Comments Med Refill Encounter Details Date Type Department Care Team (Late st Contact Info) Description 02/02/2024 Refill Department of Cardiovascular Diseases in [address] [phone] Virgil Saucedo M.D. [address] [place] [phone] Med Refill Social History Tobacco Use Types Packs/Day Years Used Date Smoking Tobacco: Former Cigarettes Q uit: 1980 Smokeless Tobacco: Current Chew Alcohol Use Standard Drinks/Week Comments Yes 0 (1 standard drink = 0.6 oz pur e alcohol) one drink a week maybe [facility] Utilities Answer Date Recorded In the past 12 months has [employer], gas, oil, or water company threatened to shut off services in your home? No 12/07/2023 AUDIT-C Answer Date Recorded Q1: How often do you have a drink containing alc ohol? Monthly or less 02/28/2019 Average Number of Drinks Not on file 020 Frequency of Binge Drinking Not on file 02/13 PHQ-2 Answer Date Recorded PHQ-2 Score 0 11/18/2022 Exercise Vital Sign Answer Date Recorde d On average, how many days pe r week do you engage in moderate to strenuous exercise (like a brisk walk)? 0 days Minutes of Exercise per Session Not on file 12/07/2023 Hunger Vital Sign Answer Date Recorded Within the past 12 months, y ou worried that your food would run out before you got the money to buy more. Never true 12/07/19 Within the past 12 months, t he food you bought just didn't last and you didn't have money to get more. Never true 12/07/2023 PRAPARE - Transportation Answer Date Re corded In the past 12 months, has l ack of transportation kept you from medical appointments or from getting medications? No 11/14 In the past 12 months, has l ack of transportation kept you from meetings, work, or from getting things needed for daily living? No 12/07/2023 Depression Answer Date Recor ded PHQ-9 Total Score (max 27) 1 06/16 Nutrition Answer Date Recorded Nutrition: EVOO Fat Source 13 10/28 Nutrition: Servings of Fruits/Vegetables per Day Not on file 10/29/2019 Dental Answer Date Recorded Dental: Regular Dentist Yes 12/07/19 Employment Answer Date Recorded Employment status Unemployed/not in e paid workforce but seeking employment 12/07/2023 Housing Stability Answer Date Recorded What is your living situation today? 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 [address] [place] [phone] documented as of this encounter Visit Diagnoses Not on filedocumented in this encounter Additional Health Concerns Assessment Noted Time PHQ-9 Depression Total Score: 1 06/17/19 21 1:53 PM CDT documented as of this encounter Care Teams Senior Paralegal Relationship Specialty Start Date End Date Dayami Pisano APRN, C.N.P. [address] [place] [phone] PCP - General 06/30/23 documented as of this encounter
--- OUTSIDE RECORDS SUMMARY | 2024-03-17 10:46 | XMS_ITS | Encounter Summary ---
Author Organization [facility] Address [address] [place] [address] Care Team Providers Care Shoe Sewing Machine Operator And Tender Name Role Phone Dayami Pisano APRN, C.N.P. Primary Care Provide r Encounter Details Date Type Department Care Team (Latest Contact Info) Description 02/26/2024 9:16 AM TACK COVERER - 02/26/2024 11:59 PM [facility] Encounter Department of Laboratory Medicine in [address] [phone] Juanita Grant APRN, C.N.P., M.S.N. [address] [place] [phone] Primary Malignant Neoplasm Of Prostate (HCC) Discharge Disposition: Home or Self Care Social History Tobacco Use Types Packs/Day Years Used Date Smoking Tobacco: Former Cigarettes Q uit: 1980 Smokeless Tobacco: Current Chew Alcohol Use Standard Drinks/Week Comments Yes 0 (1 standard drink = 0.6 oz pur e alcohol) one drink a week maybe [facility] Utilities Answer Date Recorded In the past 12 months has [employer], gas, oil, or water company threatened to [...] Answer Date Recorded Employment status Unemployed/not in th e paid workforce but seeking employment 12/07/2023 Housing Stability Answer Date Recorded What is your living situation today? I have a [facility] place to live 12/07/2023 Sex and Gender Information Value Date Recorded Sex Assigned at Male 11/03/2020 9:23 AM CDT Legal Sex Male 6:17 AM TACK COVERER Gender Identity Not on file Sexual Orientation Not on file documented as of this encounter Medications at Time of Discharge aspirin [address] tablet Take 1 tablet (81 mg total) by mouth daily. Hold until stent removal 07/06/2018 atorvastatin (Lipitor) 80 mg tablet Take 1 tablet (80 mg total) by mouth every evening. 90 tablet 3 02/06/2024 9:08 AM TACK COVERER 07/11/2023 calcium citrate-vitamin D3 (for_CITRACAL+D) 1,184 mg (250 mg calcium)-200 unit per tablet Take 1 tablet by mouth daily with breakfast. glipiZIDE (GlucotroL XL) 5 mg 24 hr tablet Take 1 tablet (5 mg total) by mouth daily for 90 days. 90 tablet 3 02/06/2024 9:08 AM TACK COVERER 07/11/2023 isosorbide mononitrate (Imdur) 30 mg 24 hr tablet Take 1 tablet (30 mg total) by mouth daily. 90 tablet 3 02/09/2024 1:10 PM TACK COVERER 02/06/2024 metFORMIN (Glucophage) 1,000 mg tablet Take 1 tablet (1,000 mg total) by mouth 2 (two) times a day 180 tablet 3 12/19/2023 1:39 PM TACK COVERER 07/11/2023 metoprolol tartrate (Lopressor) 25 mg tablet Take 1 tablet (25 mg total) by mouth 2 (two) times a day for 90 days. 180 tablet 3 03/06/2024 9:43 AM TACK COVERER 07/11/2023 nitroglycerin (NITROSTAT) 0.[address] 1 tablet (0.4 mg total) under the tongue every 5 to 15 minutes as needed for chest pain; do not exceed 3 doses per episode. 25 tablet 07/11/2023 lisinopriL 10 mg tablet Take 1 tablet (10 mg total) by mouth daily. 90 tablet 3 12/19/2023 1:39 PM TACK COVERER 02/23/2023 03/03/2024 documented as of this encounter Plan of Treatment Upcoming Encounters Date Type Department Care Team (Late st Contact Info) Description 05/24/2024 11:00 AM CDT Appointment Department of Laboratory Medicine in [address] [phone] Juanita Grant APRN, C.N.P., M.S.N. [address] [facility] [place] [phone] documented as of this encounter Procedures Procedure Name Priority Date/Time Associated Diagnosis Comments PROSTATE-SPECIFIC AG (PSA) DIAGNOSTIC, S Routine 02/26/2024 9:46 AM TACK COVERER Primary Malignant Neoplasm Of Prostate (HCC) documented in this encounter Results * PSA (Prostate-Specific Antigen), Diagnostic (02/26/2024 9:46 AM TACK COVERER) Prostate-Specific Ag 0.25 <=7.2 ng/mL 02/26/2024 1:52 PM TACK COVERER [facility] Comment: ----ADDITIONAL INFORMATION---- The testing method is an electrochemiluminescence assay manufactured by [employer] and performed on the Modular or Betina system. Values obtained with different assay methods or kits may be different and cannot be used interchangeably. Test results cannot be interpreted as absolute evidence for the presence or absence of malignant disease. Blood (Blood, Venous) 02/26/2024 9:46 AM TACK COVERER 02/26/2024 1:02 PM TACK COVERER us Juanita Grant APRN, C.N.P., M.S.N. LAB BLOOD A DD-ON Final Result [facility] [address] [place] [id number], [facility] in [place] [address] [place] [phone] documented in this encounter Visit Diagnoses Diagnosis Primary Malignant Neoplasm Of Prostate (HCC) documented in this encounter Additional Health Concerns Assessment Noted Time PHQ-9 Depression Total Score: 1 06/17/19 21 1:53 PM CDT documented as of this encounter Care Teams Shoe Sewing Machine Operator And Tender Relationship Specialty Start Date End Date Dayami Pisano APRN, C.N.P. [address] [place] [phone] PCP - General 06/30/23 documented as of this encounter
--- OUTSIDE RECORDS SUMMARY | 2024-03-17 10:46 | XMS_ITS | Encounter Summary ---
Author Organization [facility] Address [address] [place] [address] Care Team Providers Care Public Works Director Name Role Phone Dayami Pisano APRN, C.N.P. Primary Care Provide r Reason for Visit * Reason Comments Med Refill Encounter Details Date Type Department Care Team (Late st Contact Info) Description 03/03/2024 Refill Department of Cardiovascular Diseases in [address] [phone] Virgil Saucedo M.D. [address] [place] [phone] Med Refill Social History Tobacco Use Types Packs/Day Years Used Date Smoking Tobacco: Former Cigarettes Q uit: 1980 Smokeless Tobacco: Current Chew Alcohol Use Standard Drinks/Week Comments Yes 0 (1 standard drink = 0.6 oz pur e alcohol) one drink a week maybe [facility] Utilities Answer Date Recorded In the past 12 months has [employer], gas, oil, or water company threatened to [...] your living situation today? 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 [address] [place] [phone] documented as of this encounter Visit Diagnoses Not on filedocumented in this encounter Additional Health Concerns Assessment Noted Time PHQ-9 Depression Total Score: 1 06/17/19 21 1:53 PM CDT documented as of this encounter Care Teams Public Works Director Relationship Specialty Start Date End Date Dayami Pisano APRN, C.N.P. [address] [place] [phone] PCP - General 06/30/23 documented as of this encounter
--- OUTSIDE RECORDS SUMMARY | 2024-03-17 10:46 | XMS_ITS | Encounter Summary ---
Author Organization [facility] Address [address] [place] [address] Care Team Providers Care Nurse Staff Name Role Phone Dayami Pisano APRN, C.N.P. Primary Care Provide r Encounter Details Date Type Department Care Team (Late st Contact Info) Description 03/08/2024 Clinical Communication Department of Radiology, [facility] in [place], [place] [address] [place] [phone] Anil Martinez M.D., Ph.D. [address] [place] [phone] Social History Tobacco Use Types Packs/Day Years Used Date Smoking Tobacco: Former Cigarettes Q uit: 1980 Smokeless Tobacco: Current Chew Alcohol Use Standard Drinks/Week Comments Yes 0 (1 standard drink = 0.6 oz pur e alcohol) one drink a week maybe [employer] Utilities Answer Date Recorded In the past 12 months has [employer], gas, oil, or water [employer] threatened to shut off services in your [...] your living situation today? 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 - 03/08/2024 10:25 AM MODEL MAKING SUPERVISOR I personally spoke with the patient regarding his most recent PSA lab draw. The patient was concerned that there was a 0.01 rise in his PSA since 11/28. I reassured that that small of a rise was minimal and that we would see him at his next appointment. All questions were answered to the patient's satisfaction. L MAKING SUPERVISOR documented in this encounter Plan of Treatment Upcoming Encounters Date Type Department Care Team (Late st Contact Info) Description 05/24/2024 11:00 AM CDT Appointment Department of Laboratory Medicine in [address] [phone] Juanita Grant APRN, C.N.P., M.S.N. [address] [place] [phone] documented as of this encounter Visit Diagnoses Not on filedocumented in this encounter Additional Health Concerns Assessment Noted Time PHQ-9 Depression Total Score: 1 06/17/19 21 1:53 PM CDT documented as of this encounter Care Teams Nurse Staff Relationship Specialty Start Date End Date Dayami Pisano APRN, C.N.P. [address] [place] [phone] PCP - General 06/30/23 documented as of this encounter
--- OUTSIDE RECORDS SUMMARY | 2024-03-17 10:46 | XMS_ITS ---
Author Organization [facility] Address [address] [place] [address] Care Team Providers Care Underwriting Sales Representative Name Role Phone Dayami Pisano APRN, C.N.P. 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 Past Treatment and Therapy Plans No past plan information found. Lifetime Dose Tracking * Chemical Lifetime Dose [...] 06/22/2018 08/13/2020 Elevated Prostate-Specific Antigen 05/29/2018 06/12/2020 Overview (05/29/2018): Added automatically from request for surgery [id number] Helicobacter Pylori As The C ause Of Diseases Classified Elsewhere 10/18/2016 06/06/2018 Fasciitis Plantar 07/10/2013 06/06/2018 Overview (06/06/2018): left date of onset Coronary Artery Disease (Unspecified) 04/16/2008 06/06/2018
--- OUTSIDE RECORDS SUMMARY | 2024-03-17 10:46 | XMS_ITS | Continuity of Care Document ---
Author Name [facility] Organization [facility] Care Team Providers Care Veterans Service Representative Name Role Phone [facility] Unavailable Unavailable Problems Combined list of problems from Department [facility] and [facility] facilities. It does not include entries that were removed or entered in error. Problem Status Onset Date Problem Type Date of Resolution Comments Source Hearing Loss (SCT 90441782) Active Condition [facility] HTN - Hypertension (SCT 52936477) Active Condition [facility] Hyperlipidemia (SCT 11594583) Active Condition [facility] Impaired Fasting Glucose ([facility] 893431900) Active Condition [facility] Prostate Cancer ([facility] [id number]) Active Condition [facility] Diagnosis: ICD-10-CM H90.3 Sensorineural hearing loss, bilateral Active Diagnosis [facility] Diagnosis: ICD-10-CM Z46.1 Encounter for fitting and adjustment of hearing aid Active Diagnosis [facility] Diagnosis: ICD-10-CM Z23 Encounter for immunization Active Diagnosis [facility] Medications Combined list of outpatient medications from Department [facility] and [facility] facilities.Medications provided include 1) outpatient medications from the last 15 months, and 2) patient-reported medications. Medication Details Route Status Patient Instructions Prescription Expires Prescription Number Last Dispense Date Ordering Provider Order Date Order Qty Source ASPIRIN 81MG TAB,EC TAKE ONE TABLET BY MOUTH EVERY DAY ORAL ACTIVE JOEY PIMENTEL 2018 [facility] ATORVASTATI N CA 80MG TAB TAKE ONE TABLET BY MOUTH EVERY DAY ORAL ACTIVE PATRICA,STANLEY B 2020 [facility] CALCIUM 250MG/VITAM IN D 125UNT TAB TAKE TWO TABLETS BY MOUTH EVERY DAY ORAL ACTIVE PATRICA,STANLEY B 2020 [facility] LISINOPRIL 5MG TAB TAKE ONE-HALF TABLET BY MOUTH EVERY DAY ORAL ACTIVE PATRICA,STANLEY B 2020 [facility] METFORMIN HCL 1000MG TAB TAKE ONE TABLET BY MOUTH TWO TIMES A DAY ORAL ACTIVE PATRICA,STANLEY B 2021 [facility] METOPROLOL TARTRATE 50MG TAB TAKE ONE-HALF TABLET BY MOUTH TWICE A DAY ORAL ACTIVE PATRICA,STANLEY B 2020 [facility] Allergies, Adverse Reactions, Alerts Combined list of allergies from Department of Defense and Veterans Affairs facilities. It does not include entries that were removed or entered in error. Substance Category Reaction Severity Reaction type Status Date Reported Comments Source MORPHINE Propensity to adverse reactions to drug (finding) active 9 [facility] Immunizations Combined list of available immunizations from the Department of Defense and Veterans Affairs facilities. Immunization Series Date Given Administered By Site Reaction Lot Number CVX Code Drug Appointment Setter Status Comments Source COVID-19 (ReTenant), MRNA, LNP-S, PF, ANA LUISA-SUCROSE, 30 MCG/0.3 ML (AGES 12+ YEARS) 1 2022 HABMAGUIELAMICHA ,ANDOM G LEFT DELTO ID [id number] 309 complet [facility] INFLUENZA, HIGH-DOSE, QUADRIVALENT 2022 HABTESELASSIE ,ANDOM G RIGHT DELTO ID [id number] 197 complet [facility] INFLUENZA VACCINE, QUADRIVALENT, ADJUVANTED 2021 205 complet [facility] COVID-19 (PFIZER), MRNA, LNP-S, BIVALENT BOOSTER, PF, 30 MCG/0.3 ML DOSE 1 2021 300 complet ed [facility] COVID-19 (PFIZER), MRNA, LNP-S, PF, 30 MCG/0.3 ML DOSE 2021 208 complet ed [facility] COVID-19 (PFIZER), MRNA, LNP-S, PF, 30 MCG/0.3 ML DOSE, ANA LUISA-SUCROSE (AGES 12+ YEARS) 3 2021 217 complet ed [facility] ZOSTER RECOMBINANT 2 2021 187 complet [facility] INFLUENZA, HIGH-DOSE, QUADRIVALENT 2020 197 complet ed [facility] ZOSTER RECOMBINANT 1 2020 187 complet [facility] COVID-19 (ReTenant), MRNA, LNP-S, PF, 30 MCG/0.3 ML DOSE 3 2020 208 complet ed [facility] COVID-19 (PFIZER), MRNA, LNP-S, PF, 30 MCG/0.3 ML DOSE 2 2020 208 complet ed PFR; [id number]; 1 [facility] COVID-19 (PFIZER), MRNA, LNP-S, PF, 30 MCG/0.3 ML DOSE 1 2020 208 complet ed PFR; [id number]; 1 [facility] INFLUENZA, HIGH-DOSE, QUADRIVALENT 2019 197 complet ed [facility] INFLUENZA, HIGH DOSE SEASONAL 2018 135 complet ed [facility] INFLUENZA, HIGH DOSE SEASONAL 2017 135 complet ed [facility] INFLUENZA, HIGH DOSE SEASONAL 2016 135 complet ed [facility] INFLUENZA, HIGH DOSE SEASONAL 2015 135 complet ed [facility] PNEUMOCOCCAL CONJUGATE PCV [address] [facility] TDAP 2015 115 complet ed [facility] INFLUENZA, HIGH DOSE SEASONAL 2014 135 complet ed [facility] INFLUENZA, HIGH DOSE SEASONAL 2013 135 complet ed [facility] INFLUENZA, UNSPECIFIED FORMULATION 2012 88 complet ed [facility] INFLUENZA, SEASONAL, INJECTABLE 2011 141 complet ed [facility] INFLUENZA, SEASONAL, INJECTABLE, PRESERVATIVE FREE 2010 140 complet ed [facility] INFLUENZA, SEASONAL, INJECTABLE 2010 141 complet ed [facility] TD (ADULT), 5 LF TETANUS TOXOID, PRESERVATIVE FREE, ADSORBED 2010 113 complet ed [facility] NOVEL INFLUENZA-H1N 1-09, ALL FORMULATIONS 2008 128 complet ed [facility] PNEUMOCOCCAL POLYSACCHARID E PPV23 2005 33 complet ed [facility] TD (ADULT), 2 LF TETANUS TOXOID, PRESERVATIVE FREE, ADSORBED 2000 09 complet ed [facility] Encounters Combined list of: 1) Encounters from Department of Veterans Affairs facilities going back up to thelast 18 months. 2) Encounters from the Department of Defense facilities going back up to 280 months. Location Location Details Encounter Type Encounter Number Reason For Visit Attending Provider ADM Date DC Date Status Disposition Source DANIA IS [facility] HEARING AID REPAIR/MOD IFYING [id number] Diagnos is: ICD-10- CM Z46.1 Encount er for fitting and adjustm ent of hearing aid<br/ > STEPHANIE AYERS [facility]EL F 10[facility] HE[facility] A[facility] REPAIR/MOD IFYING [id number] Diagnos is: ICD-10- CM H90.3 Sensori neural hearing loss, bilater al
BEATRIZ SHORT A 12/07 [facility] ADMN SARSCOV2 VACC 1 DOSE [id number] Diagnos is: ICD-10- CM Z23 Encount er for immuniz ation<b r/> HABTESELAS SIE,ANDOM G 12/07 [facility] HEARING AID FITTING/CH ECKING [id number] Diagnos is: ICD-10- CM Z46.1 Encount er for fitting and adjustm ent of hearing aid<br/ > DONBEATRIZ ANAYA A 02/09 [facility] HEARING AID FITTING/CH ECKING [id number] Diagnos is: ICD-10- CM H90.3 Sensori neural hearing loss, bilater al
CANDELARIA HYLTON RTHA R 10/31 [facility] HEARING AID REPAIR/MOD IFYING [id number] Diagnos is: ICD-10- CM H90.3 Sensori neural hearing loss, bilater al
DONBEATRIZ ANAYA A 12/17 [facility] Social History Combined list of available smoking, tobacco, and other social history from Department of Defense and Veterans Affairs facilities. Social History Type Response Date Comment Sourc e Tobacco smoking status NHIS VA-TOBACCO USER EVERY DAY 12/13/2021 [facility] History of tobacco use VA-TOBACCO DOESNT USE WI 30 MIN WAKEUP 12/13/2021 [facility] History of tobacco use VA-TOBACCO USER S OME DAYS 10/08/2020 [facility] History of tobacco use VA-TOBACCO QUIT 1 5 YRS OR MORE 09/27/2018 [facility]
--- OUTSIDE RECORDS SUMMARY | 2024-03-17 10:46 | XMS_ITS | Encounter Summary ---
Author Name [facility] Organization [facility] Address [address] [place] [id number] Care Team Providers Care Warehouse Laborer Name Role Phone STANLEY BURCIAGA Primary Care [...] R GOLD INDIV IDU Feb 14, 2016 [id number] TIX,WILFR ED PATIENT [place] MED[place] SUPPLEMEN BRIAN MEDIC ARE SUPPL EMENT Feb 14, 2016 [id number] [phone] TIX,WILFR ED PATIENT [place] MED[place] SUPPLEMEN BRIAN MEDIC ARE SUPPL EMENT Feb 14, 2016 [id number] [phone] TIX,WILFR ED PATIENT MEDICARE (WNR) MEDICARE (M) PART A Apr 13, 2005 PART A [id number] TIX,WILFR ED PATIENT MEDICARE (WNR) MEDICARE (M) PART B Apr 13, 2005 PART B [id number] [phone] TIX,WILFR ED PATIENT Selected Encounter This section includes the information on record at [place] for the Encounter. Date/Time Encounter Type Encounter Description Reason Provider Source Nov 01, 2023 08:45 AM HEARING AID FITTING/CHECKIN G AUDIOLOGY ICD-10-CM H90.3 Sensorineural hearing loss, bilateral LULU HYLTON IHNaila Encounter Template Text not used by [place] Assessments - Encounter Diagnoses This section includes the primary and secondary diagnoses documented for the Encounter. Date/Time Primary/Secondary Diagnosis Diagnosis Name Provider Source Nov 01, 2023 09:22 AM PRIMARY Sensorineural hearing loss, bilateral SALVATORE LOZADA [facility] Nov 01, 2023 09:22 AM SECONDARY Encounter for fitting and adjustment of hearing aid SALVATORE LOZADA [facility] Plan of Treatment: Future Appointments (+ 6 months) and Future Tests (+/- 45 days) The Plan of Treatment section includes future care activities for the patient [facility] This section includes future appointments and future orders which are active, pending or scheduled. Future Appointments This section includes appointments that were scheduled to occur 6 months from the date of the Encounter, up to a maximum of 20 appointments. The data comes from all [place] treatment facilities. Appointment Date/Time Appointment Type Appointme nt Facility Name Dec 18, 2023 07:45 AM AMBULATORY - SURGERY [facility] Social History: Smoking Status (Most current) and Tobacco Use (All prior to encounter date) This section includes the most current, and the historical, smoking and tobacco- related health factors from the [place] facility where the Encounter took place. Current Smoking Status This section includes the most current smoking, or tobacco-related health factor, from the [place] facility where the Encounter took place. Date/Time Current Smoking Status Comment Bill ity Dec 13, 2021 08:30 AM VA-TOBACCO USER EVERY DAY [facility] Tobacco Use History This section includes a history of the smoking, or tobacco-related health factors, that were collected on or before the date of the Encounter. The data comes from the [place] facility where the Encounter took place. Date/Time Smoking Status/Tobacco Use Comment F acility Dec 13, 2021 08:30 AM VA-TOBACCO USE 30 YEARS OR MORE [facility] Dec 13, 2021 08:30 AM VA-TOBACCO USE ADVICE [facility] Dec 13, 2021 08:30 AM VA-TOBACCO USE LODGE ATTENDANT NO [facility] Dec 13, 2021 08:30 AM VA-TOBACCO USE MED NO [facility] Dec 13, 2021 08:30 AM VA-TOBACCO USER EVERY DAY [facility] Oct 08, 2020 03:06 PM VA-TOBACCO DOESNT USE WI 30 MIN WAKEUP [facility] Oct 08, 2020 03:06 PM VA-TOBACCO USE 30 YEARS OR MORE [facility] Oct 08, 2020 03:06 PM VA-TOBACCO USE ADVICE [facility] Oct 08, 2020 03:06 PM VA-TOBACCO USE LODGE ATTENDANT NO [facility] Oct 08, 2020 03:06 PM VA-TOBACCO USE MED NO [facility] Oct 08, 2020 03:06 PM VA-TOBACCO USER SOME DAYS [facility] Sep 27, 2018 08:28 AM VA-TOBACCO FORMER USER [facility] Sep 27, 2018 08:28 AM VA-TOBACCO QUIT 15 YRS OR MORE [facility] Encounter Notes: All associated encounter notes This section contains the clinical notes associated to the Encounter. Date/Time Encounter Note(s) Provider Source Nov 01, 2023 09:16 AM AUDIOLOGY NOTE: LOCAL TITLE: AUDIOLOGY CLINIC NOTE STANDARD TITLE: AUDIOLOGY NOTE DATE OF NOTE: NOV 01, 2023@09:16 ENTRY DATE: NOV 01, 2023@09:16:22 AUTHOR: MORA LOZADA COSIGNER: MATHEW HYLTON URGENCY: STATUS: COMPLETED DIAGNOSIS Encounter for fitting and Adjustment of Hearing Aids Sensorineural Hearing Loss, Bilateral Reason for Visit: Hearing Aid Service Location of Visit(Room Number):2S-109 was seen for Hearing Aid Service/Repair: 30 minute Appointment Otoscopy: Free of Excessive Cerumen, Normal anatomy bilaterally DIAGNOSIS History: Patient seen for a hearing aid service/hearing aid check Make:PHONAK Model: AUDEO L90-R RHYS Serial Number:R/L: [id number] Dome/Mold: MEDIUM VENTED The following Hearing aid problem(s) were presented Right Hearing Aid:CLEAN AND CHECK, PAIRING ISSUES Left Hearing Aid:SAME ABOVE Action: Hearing Aids were cleaned and checked. A listening check revealed good sound quality: REPLACED BOTH 1M-5.0 RECEIVERS, DOMES AND SPORT LOCKS PAIRED AIDS TO PHONE AND DISCUSSED HOW TO ANSWER PHONE CALLS WITH HIS CURRENT AIDS was counseled using a curriculum on the cleaning,care and use of hearing aids. Plan: Vet will contact call center as needed for follow up Patient is in agreement with this plan. Household Appliances Salesperson: /es/ MORA LOZADA AUDIO TECH Signed: 11/01/2023 09:22 /es/ Cristal Jesus, CCC-A Quality Control Projectionist Cosigned: 11/02/2023 13:17 MORA LOZADA [facility]
--- OUTSIDE RECORDS SUMMARY | 2024-03-17 10:46 | XMS_ITS | Encounter Summary ---
Author Organization [facility] Address [address] [place] [address] Care Team Providers Care Digital Communications Manager Name Role Phone Dayami Pisano APRN, C.N.P. Primary Care Provide r Encounter Details Date Type Department Care Team (Late st Contact Info) Description 03/01/2024 Clinical Communication Department of Radiology, [facility] in [place], [place] [address] [place] [phone] Anil Martinez M.D., Ph.D. [address] [place] [phone] Social History Tobacco Use Types Packs/Day Years Used Date Smoking Tobacco: Former Cigarettes Q uit: 1980 Smokeless Tobacco: Current Chew Alcohol Use Standard Drinks/Week Comments Yes 0 (1 standard drink = 0.6 oz pur e alcohol) one drink a week maybe [employer] Answer Date Recorded In the past 12 months has [employer], gas, oil, or water [employer] threatened to shut off services in your [...] your living situation today? I have a 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 [address] [place] [phone] documented as of this encounter Visit Diagnoses Not on filedocumented in this encounter Additional Health Concerns Assessment Noted Time PHQ-9 Depression Total Score: 1 05/04/20 21 1:53 PM CDT documented as of this encounter Care Teams Digital Communications Manager Relationship Specialty Start Date End Date Dayami Pisano APRN, C.N.P. [address] [place] [phone] PCP - General 06/30/23 documented as of this encounter
--- OUTSIDE RECORDS SUMMARY | 2024-03-17 10:47 | XMS_ITS | Clinical Summary ---
Author Organization [facility] Address [address] [place] [id number] Care Team Providers Care Business Process Manager Name Role Phone Dayami Pisano APRN, C.N.P. Primary Care Provide r Source Comments Patient records contain information from all sites at [facility]. For routine questions regarding patient records, call [phone] during business hours, M-F 8:00 AM - 5:00 PM Central Time. Record requests for emergency care only can be directed to [phone] at any time.[facility] Allergies Active Allergy Reactions Criticality Noted Date Comments Morphine Rash High 05/17/2007 Medications calcium citrate-vitamin D3 (for_CITRACAL+D ) 1,184 mg (250 mg calcium)-200 unit per tablet Take 1 tablet by mouth daily with breakfast. Active aspirin [address] tablet Take 1 tablet (81 mg total) by mouth daily. Hold until stent removal 9 Active atorvastatin (Lipitor) 80 mg tablet Take 1 tablet (80 mg total) by mouth every evening. 90 tablet 3 02/06/2024 9:08 AM [facility]ENS 4 Active metFORMIN (Glucophage) 1,000 mg tablet Take 1 tablet (1,000 mg total) by mouth 2 (two) times a day 180 tablet 3 12/19/2023 1:39 PM [facility]TA[facility]ENS 4 Active glipiZIDE (GlucotroL XL) 5 mg 24 hr tablet Take 1 tablet (5 mg total) by mouth daily for 90 days. 90 tablet 3 02/06/2024 9:08 AM [facility] CONTACT LENS 4 Active Additional Information Patient not taking.Reported on 12/07/2023 metoprolol tartrate (Lopressor) 25 mg tablet Take 1 tablet (25 mg total) by mouth 2 (two) times a day for 90 days. 180 tablet 3 03/06/2024 9:43 AM [facility]TA[facility] LENS 4 Active nitroglycerin (NITROSTAT) 0.[address] 1 tablet (0.4 mg total) under the tongue every 5 to 15 minutes as needed for chest pain; do not exceed 3 doses per episode. 25 tablet 4 Active isosorbide mononitrate (Imdur) 30 mg 24 hr tablet Take 1 tablet (30 mg total) by mouth daily. 90 tablet 3 02/09/2024 1:10 PM [facility] 4 Active lisinopriL 10 mg tablet Take 1 tablet (10 mg total) by mouth daily. 90 tablet 3 03/06/2024 1:21 PM [facility]TA[facility] LENS 5 Active lisinopriL 10 mg tablet Take 1 tablet (10 mg total) by mouth daily. 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 [...] Cervical 05/07/2015 Atherosclerotic Heart Diseas e Of [place] Coronary Artery Without Angina Pectoris 09/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 03/03/2024 Refill Department of Cardiovascular Diseases in [address] [phone] Virgil Saucedo M.D. Med Refill 03/01/2024 Clinical Communication Department of Radiology, [facility], in [address] [address] Anil Martinez M.D., Ph.D. 02/26/2024 9:16 AM [facility]TA[facility] - 02/26/2024 11:59 PM [facility]TA[facility] Hospital Encounter Department of Laboratory Medicine in [address] [phone] Juanita Grant APRN, C.N.P., M.S.N. Primary Malignant Neoplasm Of Prostate (HCC) Discharge Disposition: Home or Self Care 02/02/2024 Refill Department of Cardiovascular Diseases in [address] [phone] Virgil Saucedo M.D. Med Refill 12/19/2023 Orders Only [facility] MNT Dayami Pisano APRN, C.N.P. 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) from Last 3 Months Immunizations Immunization Administration Dates Next Due H1N1 All Forms 02/12/2009 Influenza TIV (IM) 10/28/2011,11/13/2010 Influenza high dose QV(65 ye ars or older) (PF) 12/16/2020,11/26/2019,12/19/2018,2017,12/13/2016,12/09/2015,11/20/2014,1 03/16/2013 Influenza, Seasonal, Injectable 10/28/2011,11/13 Influenza, Unspecified 11/27/2012,11/13/2010 PCV13 05/15/2015 PPSV23 01/13/2006 SARS-COV-2 (COVID-19) - PFIZ ER (Discontinued)(12 years or older) 04/11/2020,03/21/2020 Td (Adult), adsorbed 05/14/2000 Td Preservative Free (TENIVA C, DECAVAC) 04/05/2010 Td, (Adult) Unspecified 05/14/2000 Tdap 05/15/2015 influenza trivalent high dos e (HD)(PF) 12/13/2016,12/09/2015,11/20/2014,2013 influenza trivalent vaccine (6 months and older)(PF) 12/28/2010 Family History Medical History Relation Name Comments [...] e alcohol) one drink a week maybe [employer] Answer Date Recorded In the past 12 months has th e [employer], gas, oil, or water [employer] threatened to shut off services in your [...] money to buy more. Never true 12/07/19 24 Within the past 12 months, t he [...] Answer Date Recorded Employment status Unemployed/not in [employer] paid workforce but seeking employment 12/07/2023 Housing Stability Answer Date Recorded What is your living situation today? I have a [facility] place to live 12/07/2023 Sex and Gender Information Value Date Recorded Sex Assigned at Male 11/03/2020 9:23 AM CDT Legal Sex Male 6:17 AM [facility] Gender Identity Not on file Sexual Orientation Not on file Last Filed Vital Signs Vital Sign Reading Time Taken Comments Blood Pressure 131/74 12/07/2023 11:03 AM CDT Pulse 59 12/07/2023 11:03 AM CDT Temperature 36.3 C (97.3 F) 12/07/2023 11:03 AM CDT Respiratory Rate 20 09/30/2023 12:41 PM CDT Oxygen Saturation 96% 12/07/2023 11:03 AM CDT Inhaled Oxygen Concentration - - Weight 102 kg (224 lb 6.9 oz) 12/07/2023 11:03 A M CDT Height 169 cm (5' 6.54) 04/27/2021 9:26 AM CDT Body Mass Index 35.64 04/27/2021 9:26 AM CDT Plan of Treatment Upcoming Encounters Date Type Department Care Team (Late st Contact Info) Description 05/24/2024 11:00 AM CDT Appointment Department of Laboratory Medicine in [address] [phone] Juanita Grant APRN, C.N.P., M.S.N. [address] [place] [address] Health Maintenance Due Date Last Done Comments Visit: Medicare Annual Wellness 1940 Hepatitis B Vaccines (1 of 3 - Risk 3-dose series) 2000 Diabetic Office Visit with Foot Exam 06/12/2021 06/12/2020 Tobacco Cessation counseling 06/12/2021 06/12/2020 Dilated Eye Exam 08/28/2021 08/28/2020, 02/28/2019 Urine Albumin 12/29/2022 12/29/2021, 05/16, 04/07/2017 Hemoglobin A1C 02/18/2023 11/18/2022, 12/14, 04/02/2021, Additional history exists Visit: Chronic Disease, age 18+ 11/19/2023 11/18/2022, 11/18/2022 Depression Screening (Annual PHQ-2) 02/14/2024 Fall Risk Screen (Annual) 02/14/2024 Creatinine Level (Kidney Function Test) 03/30/2024 03/30/2023, 11/01/2022, 05/22/2022, Additional history exists Potassium Level 03/30/2024 03/30/2023, 10/14, 05/22/2022, Additional history exists Sodium Level 03/30/2024 03/30/2023, 10/14, 05/22/2022, Additional history exists COVID-19 Vaccine ( season) 2024 01/08/2024, 12/07/2022, 11/16/2021, Additional history exists Office Visit for Blood Pressure Check / Re-check 12/06/2024 12/07/2023 DTaP,Tdap,and Td Vaccines (2 - Td or Tdap) 05/14/2025 05/15/2015, 04/05/2010, 05/14/2000, Additional history exists Pneumococcal vaccine (50+ years) Completed 05/15/2015, 01/27/2006, 01/13/2006 Zoster Vaccines Completed 02/19/2021, 12/03/2020 RSV vaccine - (32-36 weeks) or 60+ years Completed 01/27/2023 Influenza Vaccine Completed 01/08/2024, , 12/13/2021, Additional history exists IPV Vaccines Aged Out No longer eligi ble based on patient's age to complete this topic Medical Devices Implanted Type Area Site Monitor Device Identifier Shelf Expiration Date Model / Serial / Lot Clp Hrzn Ti 24 Clp Sm Red - [id number] Implanted:Qty: 1 on 05/29/2020 by Lisa Trinidad M.D., M.P.H. at [facility] Hardware e.g. pins/screws /rods N/A: [employer] [id number] / / Clp Hrzn Ti 24 Clp Sm Red - [id number] Implanted:Qty: 2 on 05/29/2020 by Lisa Trinidad M.D., M.P.H. at [facility] Hardware e.g. pins/screws /rods N/A: [employer] [id number] / / Clp Hrzn Ti 24 Clp Molina - [id number] Implanted:Qty: 1 on 05/29/2020 by Lisa Trinidad M.D., M.P.H. at [facility] Hardware e.g. pins/screws /rods N/A: [employer] [id number] / / Clp Hrzn Ti 24 Clp Sm Red - [id number] Implanted:Qty: 1 on 05/29/2020 by Michel Luke M.B. at [facility] Hardware e.g. pins/screws /rods Left: [employer] [id number] 11/30/2024 [id number] / / [id number] Clp Hrzn Ti 24 Avni Lezama Molina - [id number] Implanted:Qty: 1 on 05/29/2020 by Michel Luke M.B. at [facility] Hardware e.g. pins/screws /rods Left: [employer] [id number] 10/07/2024 [id number] / / [id number] Knee Implant Knee Implant Knee Conversions - Default Historical Implant Device Implanted:Qty: 1 on 10/05/2015 Ocular Lens Left: Eye Description:Body Location - Eye L. Device Status Text - OculrLens. Conversions - Default Historical Implant Device Implanted:Qty: 1 on 10/05/2015 Ocular Lens Right: Eye Description:Body Location - Eye R. Device Status Text - OculrLens. Explanted Type Area Site Monitor Device Identifier Shelf Expiration Date Model / Serial / Lot Stnt Uret Inl [id number] - [id number] Implanted:Qty : 1 on 07/05/2018 by Marium Gutierrez M.D. at [facility] Explanted:Qty : 1 on 07/10/2018 by Elvin Cabrales M.D., M.S. 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 and performed on the Modular or Betina system. Values obtained with different assay methods or kits may be different and cannot be used interchangeably. Test results cannot be interpreted as absolute evidence for the presence or absence of malignant disease. Blood (Blood, Venous) 02/26/2024 9:46 AM [facility]TACT [facility]ENS 02/26/2024 1:02 PM [facility] CONTACT LENS us Juanita Grant APRN, C.N.P., M.S.N. LAB BLOOD A DD-ON Final Result [facility] [address] [place] [address], [facility] in [place] [address] [place] [address] * (ABNORMAL) Basic Metabolic Panel (03/30/2023 9:02 AM [facility] C[facility] CONTACT LENS) Pathologist [facility] Potassium, P 4.9 3.6 - 5.2 mmol/L 03/30/2023 9:26 AM [facility] CONTACT LENS CNFL Sodium, P 142 135 - 145 mmol/L 03/30/2023 9:26 AM [facility] CONTACT LENS CNFL Chloride, P 105 98 - 107 mmol/L 03/30/2023 9:26 AM [facility] CONTACT LENS CNFL Bicarbonate, P 29 22 - 29 mmol/L 03/30/2023 9:26 AM [facility] C[facility] CONTACT LENS CNFL Anion Gap, P 8 7 - 15 03/30/2023 9:26 AM [facility] CONTACT LENS CNFL BUN (Blood Urea Nitrogen), P 25(H) 8 - 24 mg/dL 03/30/2023 9:26 AM [facility] CONTACT LENS CNFL Creatinine 1.03 0.74 - 1.35 mg/dL 03/30/2023 9:26 AM [facility] CONTACT LENS CNFL Estimated GFR (eGFR) 73 >=60 mL/min/BSA 03/30/2023 9:26 AM [facility] CONTACT LENS CNFL Comment: Estimated GFR calculated using the 2020 CKD_EPI creatinine equation. Calcium, Total, P 10.2 8.8 - 10.2 mg/dL 03/30/2023 9:26 AM [facility] CONTACT LENS CNFL Glucose, P 152(H) 70 - 140 mg/dL 03/30/2023 9:26 AM [facility] C[facility] CONTACT LENS CNFL Blood (Blood, Venous) 03/30/2023 9:02 AM [facility] CONTACT LENS 03/30/2023 9:04 AM [facility] C[facility] CONTACT LENS us Virgil Saucedo M.D. LAB BLOOD ADD-ON Final Res ult [facility] [address] [facility] [address] [place] [address], [facility] CNFL in [address] [address] * (ABNORMAL) Hemoglobin A1c (11/18/2022 8:33 AM CDT) Hemoglobin A1c, B 8.2(H) 4.2 - 5.6 % 11/18/2022 1:45 PM CDT [facility] Comment: Hemoglobin A1c values greater than or equal to 6.5 percent are diagnostic for diabetes mellitus. Diagnosis should be confirmed by repeat testing. In diabetic patients, HbA1c goals should be discussed with healthcare provider. Blood (Blood, Venous) 11/18/2022 8:33 AM CDT 11/18/2022 8:34 AM CDT Mitesh Jean M.D., Ph.D. LAB BLOOD ADD-ON Final Result Performing Organization Address City/[facility]/ZIP Co de Phone Number [facility] [address] [place] [id number], [facility] in [address] [phone] * (ABNORMAL) Albumin, Random, Urine (12/29/2021 9:30 AM [facility] CONTACT LENS) Microalbumin 175.8 mg/L 12/29/2021 9:45 AM [facility] CONTACT LENS CNFL Creatinine 330 mg/dL 12/29/2021 9:45 AM [facility] CONTACT LENS FL Albumin/Creatinin e Ratio 53(H) <17 mg/g 12/29/2021 9:45 AM [facility] CONTACT LENS [facility] Urine (Urine, Midstream) 12/29/2021 9:30 AM [facility] C[facility] CONTACT LENS 12/29/2021 9:30 AM [facility] C[facility] CONTACT LENS Mitesh Jean M.D., Ph.D. LAB URINE ORDERABLES Fi nal Result Performing Organization Address City/[facility]/ZIP Co de Phone Number [facility] [address] [place] [id number], [place] CNFL in [address] [address] from Last 3 Months or Most Recently Relevant to Health Maintenance Insurance [id number] [facility] ZOHRA [place] [phone] MEDICARE [facility] Advance Directives For more information, please contact: [phone] Documents on File Type Date Recorded Patient Radiologic Technologist Expl anation Advance Directives 05/29/2012 12:00 AM Leg acy document. See document viewer. * Full Code (Latest Code Status on File) Date Activated Date Inactivated Comments 05/29/2020 8:01 PM 06/03/2020 1:44 PM Question Answer Comments Full Code: Discussed * Full Code Date Activated Date Inactivated Comments 05/24/2020 12:09 PM 05/29/2020 8:01 PM Question Answer Comments Full Code: Discussed Care Teams Business Process Manager Relationship Specialty Start Date End Date Dayami Pisano APRN, C.N.P. [address] [place] [address] ZOHRA Coulter [phone] PCP - General 06/30/23
[2024-03-17 10:48] VITALS: BP 133/72; PULSE 70; RESP 18; TEMP 36.4; O2SAT 95; BMI 31.9
--- NOTE | 2024-03-17 10:56 | ED_ITS ---
HPI - General Adult General Chief complaint: Extremity Pain/Injury, Upper Stated complaint: L shldr pain, cough Time Seen by Provider: 03/17/24 10:49 History of Present Illness HPI narrative: This 83-year-old male reports a cough for the past couple weeks and now has developed left shoulder pain over the last day. He states that the pain is 7/10 at rest and 10/10 with movement. He does not report any particular injury event or strenuous activity recently. Related Data Home Medications ?Medication ?Instructions ?Recorded ?Confirmed aspirin 81 mg tablet,delayed 81 mg PO QDAY 08/23/21 06/19/23 release calcium 250 mg (as 1 tab PO DAILY 08/23/21 06/19/23 citrate)-vitamin D3 5 mcg (200 unit) tablet z pack multivitamin 1 tab PO 11/12/21 06/19/23 isosorbide mononitrate 30 mg 30 mg PO QAM 07/19/23 07/19/23 tablet,extended release 24 hr Previous Rx's ?Medication ?Instructions ?Recorded atorvastatin 80 mg tablet 80 mg PO QPM 90 days #90 tabs 07/11/23 glipizide 5 mg tablet, extended 5 mg PO QDAY 90 days #90 tabs 07/11/23 release 24 hr lisinopril 2.5 mg tablet 2.5 mg PO DAILY #90 tabs 07/11/23 metformin 1,000 mg tablet 1,000 mg PO BID 90 days #180 tabs 07/11/23 metoprolol tartrate 25 mg tablet 25 mg PO BID 90 days #180 tabs 07/11/23 nitroglycerin 0.4 mg sublingual 0.4 mg sublingual Q5-15M PRN chest 07/11/23 tablet pain #25 tabs Allergies Allergy/AdvReac Type Severity Reaction Status Date / Time morphine Allergy Severe Rash Verified 07/11/23 08:17 Review of Systems Status of ROS: Reports: 10 or more systems reviewed and unremarkable except as noted in History and below Narrative: Constitutional: No fevers, no weight gain or loss. Eyes: No discharge. No vision changes. HENT: No congestion, no sore throat, no ear pain. Cardiovascular: No chest pain, no palpitations. Respiratory: No shortness of breath, no wheezes. He states that he has a bad cough. Gastrointestinal: No abdominal pain, no vomiting, no diarrhea. Genitourinary: No dysuria, no hematuria. Musculoskeletal: Left shoulder pain as described above. Skin: No rashes, no pruritis. Neurological: No dizziness, weakness, sensory change, speech change. Endo/Heme/Allergies: No bruising or bleeding. No polydipsia. Pysch: no suicidality, no anxiety, no insomnia. All other systems reviewed and are negative. [facility] Medical History (Updated 03/17/24 @ 12:45 by Poli Madera MD) Atypical chest pain ?R07.89 - Other chest pain (ICD-10) Encounter for annual wellness visit (AWV) in Medicare patient ?Z00.00 - Encounter for general adult medical examination without abnormal findings (ICD-10) Urinary tract infection ?N39.0 - Urinary tract infection, site not specified (ICD-10) Left leg swelling ?M79.89 - Other specified soft tissue disorders (ICD-10) Olecranon bursitis of right elbow ?M70.21 - Olecranon bursitis, right elbow (ICD-10) Delayed gastric emptying ?K30 - Functional dyspepsia (ICD-10) Rectal incontinence ?R15.9 - Full incontinence of feces (ICD-10) Spinal stenosis of lumbar region (03/09/09) ?M48.061 - Spinal stenosis, lumbar region without neurogenic claudication (ICD-10) Prostate cancer (01/15/09) ?C61 - Malignant neoplasm of prostate (ICD-10) Osteoarthritis (04/05/10) ?M19.90 - Unspecified osteoarthritis, unspecified site (ICD-10) Non-ST elevation myocardial infarction (NSTEMI) ?I21.4 - Non-ST elevation (NSTEMI) myocardial infarction (ICD-10) Neck pain ?M54.2 - Cervicalgia (ICD-10) Lesion of soft tissue ?M79.9 - Soft tissue disorder, unspecified (ICD-10) Impotence of organic origin ?N52.9 - Male erectile dysfunction, unspecified (ICD-10) Hypertensive heart disease without heart failure ?I11.9 - Hypertensive heart disease without heart failure (ICD-10) Hypertension (01/15/09) ?I10 - Essential (primary) hypertension (ICD-10) Hyperlipidemia (01/15/09) ?E78.5 - Hyperlipidemia, unspecified (ICD-10) Cataract (06/11/10) ?H26.9 - Unspecified cataract (ICD-10) Carpal tunnel syndrome (03/22/10) ?G56.00 - Carpal tunnel syndrome, unspecified upper limb (ICD-10) Atherosclerosis of [place] coronary artery without angina pectoris ?I25.10 - Atherosclerotic heart disease of [place] coronary artery without angina pectoris (ICD-10) Anemia due to acute blood loss ?D62 - Acute posthemorrhagic anemia (ICD-10) Surgical History (Updated 08/20/21 @ 09:08 by Epifanio Gottlieb) Status post three vessel coronary artery bypass ?Z95.1 - Presence of aortocoronary bypass graft (ICD-10) Status post coronary artery bypass graft ?Z95.1 - Presence of aortocoronary bypass graft (ICD-10) History of ureter stent 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) ?Z96.659 - Presence of unspecified artificial knee joint (ICD-10) History of appendectomy (03/09/09) ?Z90.49 - Acquired absence of other specified parts of digestive tract (ICD- 10) Family History (Updated 08/20/21 @ 09:08 by Epifanio Gottlieb) Mother Cancer Brother Diabetes Prostate cancer Social History (Updated 01/03/23 @ 13:57 by Luly Bear ~ [facility], [facility]) What is your current living situation?: I presently have a place to live In the past 12 months, utilities in danger of being shut off: no In past 12 months, lack of transportation kept you from medical appts, meetings, work, or getting things needed for daily living: no In the past 12 mos, have been you worried that your food would run out before you had money to buy more?: never true In the past 12 mos, the food you bought just didn't last and you didn't have money to buy more?: never true Smoking Status: Never smoker How often does anyone, including family, friends and others, physically hurt you : never How often does anyone, including family, friends and others, insult or talk down to you: never How often does anyone, including family, friends and others, threaten you with harm: never How often does anyone, including family, friends and others, scream or curse at you: never Exam Narrative: Exam Narrative: Constitutional: Well-developed, well-nourished, no acute distress. HEENT: Normocephalic, atraumatic. Neck: Normal range of motion. Nontender. Supple. Heart: Regular. No murmurs. Normal rate. Intact distal pulses. Lungs: Clear to auscultation. No chest discomfort. No wheezes, rhonchi, or rales. Abdomen: Normal bowel sounds. Nontender. No rebound tenderness. Genitalia: Deferred. Back: No midline tenderness. Normal range of motion. Extremities: Normal range of motion. No injury. Skin: Intact. No rash. Warm. No erythema or pallor. Neurologic: No altered sensation. No weakness. Alert and oriented. Psychiatric: No suicidality. No anxiety or depression. No insomnia. Nursing notes and vitals signs are reviewed. Const: Vital Signs, click to edit/add: Vital Signs - 24 hr 03/17/24 10:48 Temperature 97.6 F Pulse Rate [Pulse Oximeter] 70 Respiratory Rate 18 Blood Pressure [Ri ght Upper Arm] 133/72 Pulse Oximetry 95 Oxygen Delivery Me thod Room Air Course Vital Signs Vital signs: Initial Vital Signs Temperature 97.6 F 03/17/24 10:48 Temperature Source Temporal Artery Scan 03/17/24 10:48 Pulse Rate 70 03/17/24 10:48 Respiratory Rate 18 03/17/24 10:48 Blood Pressure 133/72 03/17/24 10:48 Blood Pressure Mean 92 03/17/24 10:48 Blood Pressure Position Sitting 03/17/24 10:48 Pulse Oximetry 95 03/17/24 10:48 Oxygen Delivery Method Room Air 03/17/24 10:48 Vital Signs Temperature 97.6 F 03/17/24 10:48 Pulse Rate 70 03/17/24 10:48 Respiratory Rate 18 03/17/24 10:48 Blood Pressure 133/72 03/17/24 10:48 Pulse Oximetry 95 03/17/24 10:48 Oxygen Delivery Method Room Air 03/17/24 10:48 Temperature 97.6 F 03/17/24 10:48 Pulse Rate 70 03/17/24 10:48 Respiratory Rate 18 03/17/24 10:48 Blood Pressure 133/72 03/17/24 10:48 Pulse Oximetry 95 03/17/24 10:48 Oxygen Delivery Method Room Air 03/17/24 10:48 Medications Administered Medications: Discontinued Medications Generic Name Dose Route Start Last Admin Trade Name Dianelys PRN Reason Stop Dose Admin Dexamethasone 10 mg 03/17/24 12:18 03/17/24 12:29 Dexamethasone 10 Mg/Ml Inj PO 03/17/24 12:19 10 mg ONCE ONE Administration Medical Decision Making MDM Narrative Medical decision making narrative: This patient comes in with cough and severe left shoulder pain. He does not describe any injury event or strenuous activity but the pain is worsened over the last day or so. I did obtain a EKG and troponin which returned with normal results. It does not seem likely at all that his shoulder pain is related to his heart. I also obtained a an x-ray of hers chest which shows no sign of pneumonia as he has been coughing. It seems that his shoulder pain is more directly related to the shoulder joint itself as there are some degenerative changes and calcific tendinitis seen on x-ray of the shoulder. The patient did receive an oral dose of dexamethasone and I injected his left shoulder with 40 mg of triamcinolone mixed with 1% lidocaine. The patient is encouraged to follow-up with orthopedic clinic for ongoing diagnosis and management. I did provide [facility] prescriptions for Toradol and [place]. Lab Data Labs: Lab Results 03/17/24 Range/Units 11:27 POC Troponin I 0.00 L (0.01-0.04) ng/ml Imaging Data Chest x-ray: Radiologist's impression: Enlarged cardiac silhouette low lung volumes. Median sternotomy. Basilar atelectasis. No effusion. No acute airspace or interstitial process. XR L Shoulder: Radiologist's impression: Normal articulation glenohumeral joint. Calcific tendinosis. Mild arthritic changes with narrowing of the glenohumeral articulation. Dystrophic calcifications along the coracoclavicular ligament. The AC joint is widened. There is minimal offset of the clavicle in relationship to the acromion. This may represent age indeterminate AC injury. No acute fractures are seen. ECG Data Attestation: I personally reviewed and interpreted this ECG as follows: Interpretation: Sinus rhythm with 1st degree AV block. Rate is 77 beats per minute. Right bundle branch block with left anterior fascicular block. No specific ST or T-wave abnormalities. Discharge Plan Discharge Clinical Impression: Upper respiratory infection, Acute shoulder pain Patient Disposition: Home, Self-Care Condition: Stable Additional Instructions: Take medication as needed and directed. Follow up with orthopedic clinic for ongoing diagnosis and management. Call [phone] for appointment. Prescriptions: No Action aspirin 81 mg tablet,delayed release (DR/EC) 81 mg PO QDAY calcium citrate-vitamin D3 250 mg-5 mcg (200 unit) tablet 1 tab PO DAILY z pack multivitamin 1 tab PO isosorbide mononitrate 30 mg tablet extended release 24 hr 30 mg PO QAM atorvastatin 80 mg tablet 80 mg PO QPM 90 Days Qty: 90 3RF glipizide 5 mg tablet extended release 24hr 5 mg PO QDAY 90 Days Qty: 90 3RF lisinopril 2.5 mg tablet 2.5 mg PO DAILY Qty: 90 3RF metformin 1,000 mg tablet 1,000 mg PO BID 90 Days Qty: 180 3RF metoprolol tartrate 25 mg tablet 25 mg PO BID 90 Days Qty: 180 3RF nitroglycerin 0.4 mg tablet, sublingual 0.4 mg sublingual Q5-15M PRN (Reason: chest pain) Qty: 25 0RF Rx Instructions: do not exceed 3 doses per episode Follow Up/Referrals: Nicolasa Roman, [employer] [address] [employer], [employer] F[employer]ER [Primary Care Provider] - Stand Alone Forms: Reflexth Info Instructions
--- NOTE | 2024-03-17 11:05 | CRLHL7_ITS ---
For Patients: As a result of the Century Cures Act, medical imaging exams and procedure reports are released immediately into your electronic medical record. You may view this report before your referring provider. If you have questions, please contact your health care provider. INDICATION: Shoulder pain TECHNIQUE: Three views left shoulder FINDINGS/IMPRESSION: Normal articulation glenohumeral joint. Calcific tendinosis. Mild arthritic changes with narrowing of the glenohumeral articulation. Dystrophic calcifications along the coracoclavicular ligament. The AC joint is widened. There is minimal offset of the clavicle in relationship to the acromion. This may represent age indeterminate AC injury. No acute fractures are seen. Dictated by Nevin Perdomo MD @ 03/17/2024 11:44:49 AM (Electronically Signed)
--- NOTE | 2024-03-17 11:05 | CRLHL7_ITS ---
For Patients: As a result of the Century Cures Act, medical imaging exams and procedure reports are released immediately into your electronic medical record. You may view this report before your referring provider. If you have questions, please contact your health care provider. INDICATION: Cough TECHNIQUE: Two view chest. FINDINGS: Enlarged cardiac silhouette low lung volumes. Median sternotomy. Basilar atelectasis. No effusion. No acute airspace or interstitial process. Dictated by Nevin Perdomo MD @ 03/17/2024 11:42:37 AM (Electronically Signed)
--- OUTSIDE RECORDS SUMMARY | 2024-03-17 11:15 | XMS_ITS | Encounter Summary ---
Author Organization [facility] Address [address] [place] [id number] Care Team Providers Care Senior Data Developer Name Role Phone Dayami Pisano APRN, C.N.P. Primary Care Provide r Encounter Details Date Type Department Care Team (Late st Contact Info) Description 03/01/2024 Clinical Communication Department of Radiology, [facility] in [place], [place] [address] [place] [phone] Anil Martinez M.D., Ph.D. [address] [place] [phone] Social History Tobacco Use Types Packs/Day Years Used Date Smoking Tobacco: Former Cigarettes Q uit: 1980 Smokeless Tobacco: Current Chew Alcohol Use Standard Drinks/Week Comments Yes 0 (1 standard drink = 0.6 oz pur e alcohol) one drink a week maybe [employer] Utilities Answer Date Recorded In the past 12 months has [employer], gas, oil, or water [employer] threatened to shut off services in your [...] your living situation today? 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 [address] [place] [phone] documented as of this encounter Visit Diagnoses Not on filedocumented in this encounter Additional Health Concerns Assessment Noted Time PHQ-9 Depression Total Score: 1 05/04/20 21 1:53 PM CDT documented as of this encounter Care Teams Senior Data Developer Relationship Specialty Start Date End Date Dayami Pisano APRN, C.N.P. [address] [place] [phone] PCP - General 06/30/23 documented as of this encounter
--- OUTSIDE RECORDS SUMMARY | 2024-03-17 11:16 | XMS_ITS | Encounter Summary ---
Author Organization [facility] Address [address] [place] [address] Care Team Providers Care Broadcast Transmitter Operator Name Role Phone Dayami Pisano APRN, C.N.P. Primary Care Provide r Reason for Visit * Reason Comments Med Refill Encounter Details Date Type Department Care Team (Late st Contact Info) Description 02/02/2024 Refill Department of Cardiovascular Diseases in [address] [phone] Virgil Saucedo M.D. [address] [place] [phone] Med Refill Social History Tobacco Use Types Packs/Day Years Used Date Smoking Tobacco: Former Cigarettes Q uit: 1980 Smokeless Tobacco: Current Chew Alcohol Use Standard Drinks/Week Comments Yes 0 (1 standard drink = 0.6 oz pur e alcohol) one drink a week maybe [facility] Utilities Answer Date Recorded In the past 12 months has [facility], gas, oil, or water company threatened to [...] your living situation today? 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 [address] [place] [phone] documented as of this encounter Visit Diagnoses Not on filedocumented in this encounter Additional Health Concerns Assessment Noted Time PHQ-9 Depression Total Score: 1 06/17/19 21 1:53 PM CDT documented as of this encounter Care Teams Broadcast Transmitter Operator Relationship Specialty Start Date End Date Dayami Pisano APRN, C.N.P. [address] [place] [phone] PCP - General 06/30/23 documented as of this encounter
--- OUTSIDE RECORDS SUMMARY | 2024-03-17 11:16 | XMS_ITS ---
Author Organization [facility] Address [address] [place] [address] Care Team Providers Care Billing Administrator Name Role Phone Dayami Pisano APRN, C.N.P. Primary Care Provide r Active Problems Problem Noted Date Diagnosed Date Pain Toe Right 09/30/2023 Pain Right Upper Quadrant 04/03/2021 Overview (04/03/2021): Added automatically from request for surgery [id number] Pain Epigastric 04/03/2021 Overview (04/03/2021): Added automatically from request for surgery [id number] Dysphagia 04/03/2021 Overview (04/03/2021): Added automatically from request for surgery [id number] Bypass Coronary Artery Graft Status Post 021 [...] Cervical 05/07/2015 Atherosclerotic Heart Diseas e Of [place] Coronary Artery Without Angina Pectoris 09/30/2013 Overview [...] (05/29/2018): Added automatically from request for surgery [id number] Helicobacter Pylori As The C ause Of Diseases Classified Elsewhere 10/18/2016 06/06/2018 Fasciitis Plantar 07/10/2013 06/06/2018 Overview (06/06/2018): left date of onset Coronary Artery Disease (Unspecified) 04/16/2008 06/06/2018
--- OUTSIDE RECORDS SUMMARY | 2024-03-17 11:16 | XMS_ITS | Encounter Summary ---
Author Organization [facility] Address [address] [place] [address] Care Team Providers Care Action Finisher Name Role Phone Dayami Pisano APRN, C.N.P. Primary Care Provide r Encounter Details Date Type Department Care Team (Latest Contact Info) Description 02/26/2024 9:16 AM APPLIED STATISTICIAN - 02/26/2024 11:59 PM [facility] Hospital Encounter Department of Laboratory Medicine in [address] [phone] Juanita Grant APRN, C.N.P., M.S.N. [address] [place] [phone] Primary Malignant Neoplasm Of Prostate (HCC) Discharge Disposition: Home or Self Care Social History Tobacco Use Types Packs/Day Years Used Date Smoking Tobacco: Former Cigarettes Q uit: 1980 Smokeless Tobacco: Current Chew Alcohol Use Standard Drinks/Week Comments Yes 0 (1 standard drink = 0.6 oz pur e alcohol) one drink a week maybe [facility] Utilities Answer Date Recorded In the past 12 months has [employer], gas, oil, or water company threatened to [...] your living situation today? 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 Hold until stent removal 07/06/2018 atorvastatin (Lipitor) 80 mg tablet Take 1 tablet (80 mg total) by mouth every evening. 90 tablet 3 02/06/2024 9:08 AM APPLIED STATISTICIAN 07/11/2023 calcium citrate-vitamin D3 (for_CITRACAL+D) 1,184 mg (250 mg calcium)-200 unit per tablet Take 1 tablet by mouth daily with breakfast. glipiZIDE (GlucotroL XL) 5 mg 24 hr tablet Take 1 tablet (5 mg total) by mouth daily for 90 days. 90 tablet 3 02/06/2024 9:08 AM APPLIED STATISTICIAN 07/11/2023 isosorbide mononitrate (Imdur) 30 mg 24 hr tablet Take 1 tablet (30 mg total) by mouth daily. 90 tablet 3 02/09/2024 1:10 PM APPLIED STATISTICIAN 02/06/2024 metFORMIN (Glucophage) 1,000 mg tablet Take 1 tablet (1,000 mg total) by mouth 2 (two) times a day 180 tablet 3 12/19/2023 1:39 PM APPLIED STATISTICIAN 07/11/2023 metoprolol tartrate (Lopressor) 25 mg tablet Take 1 tablet (25 mg total) by mouth 2 (two) times a day for 90 days. 180 tablet 3 03/06/2024 9:43 AM APPLIED STATISTICIAN 07/11/2023 nitroglycerin (NITROSTAT) 0.[address] 1 tablet (0.4 mg total) under the tongue every 5 to 15 minutes as needed for chest pain; do not exceed 3 doses per episode. 25 tablet 07/11/2023 lisinopriL 10 mg tablet Take 1 tablet (10 mg total) by mouth daily. 90 tablet 3 12/19/2023 1:39 PM APPLIED STATISTICIAN 02/23/2023 03/03/2024 documented as of this encounter Plan of Treatment Upcoming Encounters Date Type Department Care Team (Late st Contact Info) Description 05/24/2024 11:00 AM CDT Appointment Department of Laboratory Medicine in [address] [phone] Juanita Grant APRN, C.N.P., M.S.N. [address] [facility] [place] [phone] documented as of this encounter Procedures Procedure Name Priority Date/Time Associated Diagnosis Comments PROSTATE-SPECIFIC AG (PSA) DIAGNOSTIC, S Routine 02/26/2024 9:46 AM APPLIED STATISTICIAN Primary Malignant Neoplasm Of Prostate (HCC) documented in this encounter Results * PSA (Prostate-Specific Antigen), Diagnostic (02/26/2024 9:46 AM APPLIED STATISTICIAN) Prostate-Specific Ag 0.25 <=7.2 ng/mL 02/26/2024 1:52 PM APPLIED STATISTICIAN [facility] Comment: ----ADDITIONAL INFORMATION---- The testing method is an electrochemiluminescence assay manufactured by [employer] and performed on the Modular or [employer]ina system. Values obtained with different assay methods or kits may be different and cannot be used interchangeably. Test results cannot be interpreted as absolute evidence for the presence or absence of malignant disease. Blood (Blood, Venous) 02/26/2024 9:46 AM APPLIED STATISTICIAN 02/26/2024 1:02 PM APPLIED STATISTICIAN us Juanita Grant APRN, C.N.P., M.S.N. LAB BLOOD A DD-ON Final Result [facility] [address] [place] [id number], [facility] [place] [address] [place] [phone] documented in this encounter Visit Diagnoses Diagnosis Primary Malignant Neoplasm Of Prostate (HCC) documented in this encounter Additional Health Concerns Assessment Noted Time PHQ-9 Depression Total Score: 1 06/17/19 21 1:53 PM CDT documented as of this encounter Care Teams Action Finisher Relationship Specialty Start Date End Date Dayami Pisano APRN, C.N.P. [address] [place] [phone] PCP - General 06/30/23 documented as of this encounter
--- OUTSIDE RECORDS SUMMARY | 2024-03-17 11:16 | XMS_ITS | Encounter Summary ---
Author Organization [facility] Address [address] [place] [phone] Care Team Providers Care Outbound Sales Representative Name Role Phone Dayami Pisano APRN, C.N.P. Primary Care Provide r Encounter Details Date Type Department Care Team (Late st Contact Info) Description 03/08/2024 Clinical Communication Department of Radiology, [facility] in [place], [place] [address] [place] [phone] Anil Martinez M.D., Ph.D. [address] [place] [phone] Social History Tobacco Use Types Packs/Day Years Used Date Smoking Tobacco: Former Cigarettes Q uit: 1980 Smokeless Tobacco: Current Chew Alcohol Use Standard Drinks/Week Comments Yes 0 (1 standard drink = 0.6 oz pur e alcohol) one drink a week maybe [employer] Utilities Answer Date Recorded In the past 12 months has [employer], gas, oil, or water [employer] threatened to shut off services in your [...] your living situation today? [facility] 12/07/2023 Sex and Gender Information Value Date Recorded Sex Assigned at Male 11/03/2020 9:23 AM CDT Legal Sex Male 6:17 AM FELLER HAND Gender Identity Not on file Sexual Orientation Not on file documented as of this encounter Miscellaneous Notes * Telephone Encounter - Sarah Jovel, R.N. - 03/08/2024 10:25 AM FELLER HAND I personally spoke with the patient regarding his most recent PSA lab draw. The patient was concerned that there was a 0.01 rise in his PSA since 11/28. I reassured that that small of a rise was minimal and that we would see him at his next appointment. All questions were answered to the patient's satisfaction. ER HAND documented in this encounter Plan of Treatment Upcoming Encounters Date Type Department Care Team (Late st Contact Info) Description 05/24/2024 11:00 AM CDT Appointment Department of Laboratory Medicine in [address] [phone] Juanita Grant APRN, C.N.P., M.S.N. [address] [place] [phone] documented as of this encounter Visit Diagnoses Not on filedocumented in this encounter Additional Health Concerns Assessment Noted Time PHQ-9 Depression Total Score: 1 06/17/19 21 1:53 PM CDT documented as of this encounter Care Teams Outbound Sales Representative Relationship Specialty Start Date End Date Dayami Pisano APRN, C.N.P. [address] [place] [phone] PCP - General 06/30/23 documented as of this encounter
--- OUTSIDE RECORDS SUMMARY | 2024-03-17 11:16 | XMS_ITS | Encounter Summary ---
Author Organization [facility] Address [address] [place] [address] Care Team Providers Care Building Certifier Name Role Phone Dayami Pisano APRN, C.N.P. Primary Care Provide r Reason for Visit * Reason Comments Med Refill Encounter Details Date Type Department Care Team (Late st Contact Info) Description 03/03/2024 Refill Department of Cardiovascular Diseases in [address] [phone] Virgil Saucedo M.D. [address] [place] [phone] Med Refill Social History Tobacco Use Types Packs/Day Years Used Date Smoking Tobacco: Former Cigarettes Q uit: 1980 Smokeless Tobacco: Current Chew Alcohol Use Standard Drinks/Week Comments Yes 0 (1 standard drink = 0.6 oz pur e alcohol) one drink a week maybe [facility] Utilities Answer Date Recorded In the past 12 months has [employer], gas, oil, or water company threatened to [...] AM CDT Legal Sex Male 6:17 AM IMPLEMENTATION SERVICES ANALYST Gender Identity Not on file Sexual Orientation Not on file documented as of this encounter Plan of Treatment Upcoming Encounters Date Type Department Care Team (Late st Contact Info) Description 05/24/2024 11:00 AM CDT Appointment Department of Laboratory Medicine in [address] [phone] Juanita Grant APRN, C.N.P., M.S.N. [address] [place] [phone] documented as of this encounter Visit Diagnoses Not on filedocumented in this encounter Additional Health Concerns Assessment Noted Time PHQ-9 Depression Total Score: 1 06/17/19 21 1:53 PM CDT documented as of this encounter Care Teams Building Certifier Relationship Specialty Start Date End Date Dayami Pisano APRN, C.N.P. [address] [place] [phone] PCP - General 06/30/23 documented as of this encounter
--- OUTSIDE RECORDS SUMMARY | 2024-03-17 11:16 | XMS_ITS | Continuity of Care Document ---
Author Name [facility] Organization [facility] Care Team Providers Care Cv/Cvn Cv Tsc System Operator Name Role Phone [facility] Unavailable Unavailable Problems Combined list of problems from Department [facility] and [facility] facilities. It does not include entries that were removed or entered in error. Problem Status Onset Date Problem Type Date of Resolution Comments Source Hearing Loss (SCT 64031888) Active Condition 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 Prostate Cancer ([facility] [id number]) Active Condition [facility] Diagnosis: ICD-10-CM H90.3 Sensorineural hearing loss, bilateral Active Diagnosis [facility] Diagnosis: ICD-10-CM Z46.1 Encounter for fitting and adjustment of hearing aid Active Diagnosis [facility] Diagnosis: ICD-10-CM Z23 Encounter for immunization Active Diagnosis [facility] Medications Combined list of outpatient medications from Department [facility] and [facility] facilities.Medications provided include 1) outpatient medications from the last 15 months, and 2) patient-reported medications. Medication Details Route Status Patient Instructions Prescription Expires Prescription Number Last Dispense Date Ordering Provider Order Date Order Qty Source ASPIRIN 81MG TAB,EC TAKE ONE TABLET BY MOUTH EVERY DAY ORAL ACTIVE JOEY PIMENTEL 2018 [facility] ATORVASTATI N CA 80MG TAB TAKE ONE TABLET BY MOUTH EVERY DAY ORAL ACTIVE PATRICA,STANLEY B 2020 [facility] CALCIUM 250MG/VITAM IN D 125UNT TAB TAKE TWO TABLETS BY MOUTH EVERY DAY ORAL ACTIVE PATRICA,STANLEY B 2020 [facility] LISINOPRIL 5MG TAB TAKE ONE-HALF TABLET BY MOUTH EVERY DAY ORAL ACTIVE PATRICA,STANLEY B 2020 [facility] METFORMIN HCL 1000MG TAB TAKE ONE TABLET BY MOUTH TWO TIMES A DAY ORAL ACTIVE PATRICA,STANLEY B 2021 [facility] METOPROLOL TARTRATE 50MG TAB TAKE ONE-HALF TABLET BY MOUTH TWICE A DAY ORAL ACTIVE PATRICA,STANLEY B 2020 [facility] Allergies, Adverse Reactions, Alerts Combined list of allergies from Department of Defense and Veterans Affairs facilities. It does not include entries that were removed or entered in error. Substance Category Reaction Severity Reaction type Status Date Reported Comments Source MORPHINE Propensity to adverse reactions to drug (finding) active 9 [facility] Immunizations Combined list of available immunizations from the Department of Defense and Veterans Affairs facilities. Immunization Series Date Given Administered By Site Reaction Lot Number CVX Code Drug Glass Technician/Installer Status Comments Source COVID-19 (Sproutel), MRNA, LNP-S, PF, ANA LUISA-SUCROSE, 30 MCG/0.3 ML (AGES 12+ YEARS) 1 2022 HABMAGUIELAMICHA ,ANDOM G LEFT DELTO ID [id number] 309 complet [facility] INFLUENZA, HIGH-DOSE, QUADRIVALENT 2022 HABTESELASSIE ,ANDOM G RIGHT DELTO ID [id number] 197 complet [facility] INFLUENZA VACCINE, QUADRIVALENT, ADJUVANTED 2021 205 complet [facility] COVID-19 (PFIZER), MRNA, LNP-S, BIVALENT BOOSTER, PF, 30 MCG/0.3 ML DOSE 1 2021 300 complet ed [facility] COVID-19 (PFIZER), MRNA, LNP-S, PF, 30 MCG/0.3 ML DOSE 2021 208 complet ed [facility] COVID-19 (PFIZER), MRNA, LNP-S, PF, 30 MCG/0.3 ML DOSE, ANA LUISA-SUCROSE (AGES 12+ YEARS) 3 2021 217 complet ed [facility] ZOSTER RECOMBINANT 2 2021 187 complet [facility] INFLUENZA, HIGH-DOSE, QUADRIVALENT 2020 197 complet ed [facility] ZOSTER RECOMBINANT 1 2020 187 complet [facility] COVID-19 (Sproutel), MRNA, LNP-S, PF, 30 MCG/0.3 ML DOSE 3 2020 208 complet ed [facility] COVID-19 (PFIZER), MRNA, LNP-S, PF, 30 MCG/0.3 ML DOSE 2 2020 208 complet ed PFR; [id number]; 1 [facility] COVID-19 (PFIZER), MRNA, LNP-S, PF, 30 MCG/0.3 ML DOSE 1 2020 208 complet ed PFR; [id number]; 1 [facility] INFLUENZA, HIGH-DOSE, QUADRIVALENT 2019 197 complet ed [facility] INFLUENZA, HIGH DOSE SEASONAL 2018 135 complet ed [facility] INFLUENZA, HIGH DOSE SEASONAL 2017 135 complet ed [facility] INFLUENZA, HIGH DOSE SEASONAL 2016 135 complet ed [facility] INFLUENZA, HIGH DOSE SEASONAL 2015 135 complet ed [facility] PNEUMOCOCCAL CONJUGATE PCV 13 2015 133 complet ed [facility] TDAP 2015 115 complet ed [facility] INFLUENZA, HIGH DOSE SEASONAL 2014 135 complet ed [facility] INFLUENZA, HIGH DOSE SEASONAL 2013 135 complet ed [facility] INFLUENZA, UNSPECIFIED FORMULATION 2012 88 complet ed [facility] INFLUENZA, SEASONAL, INJECTABLE 2011 141 complet ed [facility] INFLUENZA, SEASONAL, INJECTABLE, PRESERVATIVE FREE 2010 140 complet ed [facility] INFLUENZA, SEASONAL, INJECTABLE 2010 141 complet ed [facility] TD (ADULT), 5 LF TETANUS TOXOID, PRESERVATIVE FREE, ADSORBED 2010 113 complet ed [facility] NOVEL INFLUENZA-H1N 1-09, ALL FORMULATIONS 2008 128 complet ed [facility] PNEUMOCOCCAL POLYSACCHARID E PPV23 2005 33 complet ed [facility] TD (ADULT), 2 LF TETANUS TOXOID, PRESERVATIVE FREE, ADSORBED 2000 09 complet ed [facility] Encounters Combined list of: 1) Encounters from Department of Veterans Affairs facilities going back up to thelast 18 months. 2) Encounters from the Department of Defense facilities going back up to 280 months. Location Location Details Encounter Type Encounter Number Reason For Visit Attending Provider ADM Date DC Date Status Disposition Source D[facility] IS [facility] REPAIR/MOD [place]YING [id number] Diagnos is: ICD-10- CM Z46.1 Encount er for fitting and adjustm ent of hearing aid<br/ > STEPHANIE AYERS AEL F 10/18 [facility]PA[facility]MOD [place] [id number] Diagnos is: ICD-10- CM H90.3 Sensori neural hearing loss, bilater al
BEATRIZ SHORT A 12/07 [facility] ADMN SARSCOV2 VACC 1 DOSE [id number] Diagnos is: ICD-10- CM Z23 Encount er for immuniz ation<b r/> HABTESELAS SIE,ANDOM G 12/07 [facility]ID FITTING/CH ECKING [id number] Diagnos is: ICD-10- CM Z46.1 Encount er for fitting and adjustm ent of hearing aid<br/ > DONBEATRIZ ANAYA A 02/09 [facility] FITTING/CH ECKING [id number] Diagnos is: ICD-10- CM H90.3 Sensori neural hearing loss, bilater al
CANDELARIA HYLTON RTHA R 10/31 [facility] REPAIR/MOD IFYING [id number] Diagnos is: ICD-10- CM H90.3 Sensori neural hearing loss, bilater al
DONBEATRIZ ANAYA A 12/17 [facility] Social History Combined list of available smoking, tobacco, and other social history from Department of Defense and Veterans Affairs facilities. Social History Type Response Date Comment Sourc e Tobacco smoking status NHIS VA-TOBACCO USER EVERY DAY 12/13/2021 [facility] History of tobacco use VA-TOBACCO DOESNT USE WI 30 MIN WAKEUP 12/13/2021 [facility] History of tobacco use VA-TOBACCO USER S OME DAYS 10/08/2020 [facility] History of tobacco use VA-TOBACCO QUIT 1 5 YRS OR MORE 09/27/2018 [facility]
--- OUTSIDE RECORDS SUMMARY | 2024-03-17 11:16 | XMS_ITS | Clinical Summary ---
Author Organization [facility] Address [address] [place] [address] Care Team Providers Care Polymer Chemist Name Role Phone Dayami Pisano APRN, C.N.P. Primary Care Provide r Source Comments Patient records contain information from all sites at [facility]. For routine questions regarding patient records, call [phone] during business hours, M-F 8:00 AM - 5:00 PM Central Time. Record requests for emergency care only can be directed to [phone] at any time.[facility] Allergies Active Allergy Reactions Criticality Noted Date [...] evening. 90 tablet 3 02/06/2024 9:08 AM PRACTICE SUPPORT SPECIALIST 4 Active metFORMIN (Glucophage) 1,000 mg tablet Take 1 tablet (1,000 mg total) by mouth 2 (two) times a day 180 tablet 3 12/19/2023 1:39 PM PRACTICE SUPPORT SPECIALIST 4 Active glipiZIDE (GlucotroL XL) 5 mg 24 hr tablet Take 1 tablet (5 mg total) by mouth daily for 90 days. 90 tablet 3 02/06/2024 9:08 AM PRACTICE SUPPORT SPECIALIST 4 Active Additional Information Patient not taking.Reported on 12/07/2023 metoprolol tartrate (Lopressor) 25 mg tablet Take 1 tablet (25 mg total) by mouth 2 (two) times a day for 90 days. 180 tablet 3 03/06/2024 9:43 AM PRACTICE SUPPORT SPECIALIST 4 Active nitroglycerin (NITROSTAT) 0.[address] 1 tablet (0.4 mg total) under the tongue every 5 to 15 minutes as needed for chest pain; do not exceed 3 doses per episode. 25 tablet 4 Active isosorbide mononitrate (Imdur) 30 mg 24 hr tablet Take 1 tablet (30 mg total) by mouth daily. 90 tablet 3 02/09/2024 1:10 PM PRACTICE SUPPORT SPECIALIST 4 Active lisinopriL 10 mg tablet Take 1 tablet (10 mg total) by mouth daily. 90 tablet 3 03/06/2024 1:21 PM PRACTICE SUPPORT SPECIALIST 5 Active lisinopriL 10 mg tablet Take 1 tablet (10 mg total) by mouth daily. 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 03/03/2024 Refill Department of Cardiovascular Diseases in [address] [address] Virgil Saucedo M.D. Med Refill 03/01/2024 Clinical Communication Department of Radiology, [facility], in [address] [address] Anil Martinez M.D., Ph.D. 02/26/2024 9:16 AM PRACTICE SUPPORT SPECIALIST - 02/26/2024 11:59 PM PRACTICE SUPPORT SPECIALIST Hospital Encounter Department of Laboratory Medicine in [address] [address] Juanita Grant APRN, C.N.P., M.S.N. Primary Malignant Neoplasm Of Prostate (HCC) Discharge Disposition: Home or Self Care 02/02/2024 Refill Department of Cardiovascular Diseases in [address] [address] Virgil Saucedo M.D. Med Refill 12/19/2023 Orders [...] e alcohol) one drink a week maybe [employer] Answer Date Recorded In the past 12 months has th e [employer], gas, oil, or water [employer] threatened to shut off services in your [...] Answer Date Recorded Employment status Unemployed/not in [employer] paid workforce but seeking employment 12/07/2023 Housing Stability Answer Date Recorded What is your living situation today? I have a [facility] place to live 12/07/2023 Sex and Gender Information Value Date Recorded Sex Assigned at Male 11/03/2020 9:23 AM CDT Legal Sex Male 6:17 AM PRACTICE SUPPORT SPECIALIST Gender Identity Not on file Sexual Orientation [...] CDT Appointment Department of Laboratory Medicine in [address] [phone] Juanita Grant APRN, C.N.P., M.S.N. [address] [place] [address] Health Maintenance Due Date Last Done Comments [...] this topic Medical Devices Implanted Type Area Language Specialist Device Identifier Shelf Expiration Date Model / Serial / Lot Clp Hrzn Ti 24 Clp Sm Red - [id number] Implanted:Qty: 1 on 05/29/2020 by Lisa Trinidad M.D., M.P.H. at [facility] Hardware e.g. pins/screws /rods N/A: [employer] [id number] / / Clp Hrzn Ti 24 Clp Sm Red - [id number] Implanted:Qty: 2 on 05/29/2020 by Lisa Trinidad M.D., M.P.H. at [facility] Hardware e.g. pins/screws /rods N/A: [employer] [id number] / / Clp Hrzn Ti 24 Clp Molina - [id number] Implanted:Qty: 1 on 05/29/2020 by Lisa Trinidad M.D., M.P.H. at [facility] Hardware e.g. pins/screws /rods N/A: [employer] [id number] / / Clp Hrzn Ti 24 Clp Sm Red - [id number] Implanted:Qty: 1 on 05/29/2020 by Michel Luke M.B. at [facility] Hardware e.g. pins/screws /rods Left: [employer] [id number] 11/30/2024 [id number] / / [id number] Clp Hrzn Ti 24 Avni Lezama Molina - [id number] Implanted:Qty: 1 on 05/29/2020 by Michel Luke M.B. at [facility] Hardware e.g. pins/screws /rods Left: [employer] [id number] 10/07/2024 [id number] / / [id number] Knee Implant Knee Implant Knee Conversions - Default Historical Implant Device Implanted:Qty: 1 on 10/05/2015 Ocular Lens Left: Eye Description:Body Location - Eye L. Device Status Text - OculrLens. Conversions - Default Historical Implant Device Implanted:Qty: 1 on 10/05/2015 Ocular Lens Right: Eye Description:Body Location - Eye R. Device Status Text - OculrLens. Explanted Type Area Language Specialist Device Identifier Shelf Expiration Date Model / Serial / Lot Stnt Uret Inl [id number] - [id number] Implanted:Qty : 1 on 07/05/2018 by Marium Gutierrez M.D. at [facility] Explanted:Qty : 1 on 07/10/2018 by Elvin Cabrales M.D., M.S. 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 and performed on the Modular or Betina system. Values obtained with different assay methods or kits may be different and cannot be used interchangeably. Test results cannot be interpreted as absolute evidence for the presence or absence of malignant disease. Blood (Blood, Venous) 02/26/2024 9:46 AM PRACTICE SUPPORT SPECIALIST 02/26/2024 1:02 PM PRACTICE SUPPORT SPECIALIST us Juanita Grant APRN, C.N.P., M.S.N. LAB BLOOD A DD-ON Final Result [facility] [address] [place] [address], [facility] RDWG [facility] in [place] [address] [place] [address] * (ABNORMAL) Basic Metabolic Panel (03/30/2023 9:02 AM PRACTICE SUPPORT SPECIALIST) Pathologist [facility] Potassium, P 4.9 3.6 - 5.2 mmol/L 03/30/2023 9:26 AM PRACTICE SUPPORT SPECIALIST CNFL Sodium, P 142 135 - 145 mmol/L 03/30/2023 9:26 AM PRACTICE SUPPORT SPECIALIST CNFL Chloride, P 105 98 - 107 mmol/L 03/30/2023 9:26 AM PRACTICE SUPPORT SPECIALIST CNFL Bicarbonate, P 29 22 - 29 mmol/L 03/30/2023 9:26 AM PRACTICE SUPPORT SPECIALIST CNFL Anion Gap, P 8 7 - 15 03/30/2023 9:26 AM PRACTICE SUPPORT SPECIALIST CNFL BUN (Blood Urea Nitrogen), P 25(H) 8 - 24 mg/dL 03/30/2023 9:26 AM PRACTICE SUPPORT SPECIALIST CNFL Creatinine 1.03 0.74 - 1.35 mg/dL 03/30/2023 9:26 AM PRACTICE SUPPORT SPECIALIST CNFL Estimated GFR (eGFR) 73 >=60 mL/min/BSA 03/30/2023 9:26 AM PRACTICE SUPPORT SPECIALIST CNFL Comment: Estimated GFR calculated using the 2020 CKD_EPI creatinine equation. Calcium, Total, P 10.2 8.8 - 10.2 mg/dL 03/30/2023 9:26 AM PRACTICE SUPPORT SPECIALIST CNFL Glucose, P 152(H) 70 - 140 mg/dL 03/30/2023 9:26 AM PRACTICE SUPPORT SPECIALIST CNFL Blood (Blood, Venous) 03/30/2023 9:02 AM PRACTICE SUPPORT SPECIALIST 03/30/2023 9:04 AM PRACTICE SUPPORT SPECIALIST us Virgil Saucedo M.D. LAB BLOOD ADD-ON Final Res ult [facility] [address] [facility] [address] [place] [address], [facility] CNFL [facility] in [address] [address] * (ABNORMAL) Hemoglobin A1c (11/18/2022 8:33 AM [...] BLOOD ADD-ON Final Result Performing Organization Address City/[facility]/ZIP Co de Phone Number [facility] [address] [place] [address], [facility] RDWG [facility] in [address] [address] * (ABNORMAL) Albumin, Random, Urine (12/29/2021 9:30 AM PRACTICE SUPPORT SPECIALIST) Microalbumin 175.8 mg/L 12/29/2021 9:45 AM PRACTICE SUPPORT SPECIALIST CNFL Creatinine 330 mg/dL 12/29/2021 9:45 AM PRACTICE SUPPORT SPECIALIST [place] Albumin/Creatinin e Ratio 53(H) <17 mg/g 12/29/2021 9:45 AM PRACTICE SUPPORT SPECIALIST [facility] Urine (Urine, Midstream) 12/29/2021 9:30 AM PRACTICE SUPPORT SPECIALIST 12/29/2021 9:30 AM PRACTICE SUPPORT SPECIALIST Mitesh Jean M.D., Ph.D. 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 See document viewer. * Full Code (Latest Code Status on File) Date Activated Date Inactivated Comments 05/29/2020 8:01 PM 06/03/2020 1:44 PM Question Answer Comments Full Code: Discussed * Full Code Date Activated Date Inactivated Comments 05/24/2020 12:09 PM 05/29/2020 8:01 PM Question Answer Comments Full Code: Discussed Care Teams Polymer Chemist Relationship Specialty Start Date End Date Dayami Pisano APRN, C.N.P. [address] [place] [address] ZOHRA Coulter [phone] PCP - General 06/30/23
[2024-03-17] MEDS: dexAMETHasone 10 MG/ML inj PO (12:29)
== END 2024-03-17 12:55 | disposition home or self-care (01) ==
PROVIDERS: Emergency Provider Emergency Medicine Emergency Medical Services; PCP Nurse Practitioner Family
DX: J06.9 Acute upper respiratory infection, unspecified (principal); M25.512 Pain in left shoulder
CPT/HCPCS: 20610; 71046; 73030; 84484; 93005; 99283; 99284; 99285; J1100

== ENCOUNTER 2024-07-15 11:01 | Outpatient (CLI) | payer MEDICARE, BC, SELFPAY | END 2024-07-15 11:02 | disposition home or self-care (01) | PROVIDERS: PCP Nurse Practitioner Family; Visit Provider Nurse Practitioner Family | DX: R06.09 Other forms of dyspnea (principal); E78.5 Hyperlipidemia, unspecified; I10 Essential (primary) hypertension; E11.65 Type 2 diabetes mellitus with hyperglycemia; Z79.899 Other long term (current) drug therapy | CPT/HCPCS: 80053; 80061; 82043; 82570; 82607; 84443; 85025 ==

== ENCOUNTER 2024-07-22 07:57 | Outpatient (CLI) | payer MEDICARE, BC, SELFPAY ==
--- NOTE | 2024-07-22 09:07 | P.ANES_ITS ---
Anesthesia Charges Start Date/Time Anesthesia Start Date: 07/22/24 Anesthesia Start Time: 08:35 Stop Date/Time Anesthesia Stop Date: 07/22/24 Anesthesia Stop Time: 09:00 Coding CPT Codes CPT Codes: ANES UPR GI NDSC PX NOS - 27911 ([id number]) P3 - PATIENT W/SEVERE SYS DISEASE, QX - GEOSCIENCES PROFESSOR SVC W/ MD MED DIRECTION, QK - INTERNAL CONTROLS MANAGER 2-4 CNCRNT ANES PROC
--- NOTE | 2024-07-22 09:07 | W.ANESCHARGE ---
Anesthesia Charges Start Date/Time Anesthesia Start Date: 07/22/24 Anesthesia Start Time: 08:35 Stop Date/Time Anesthesia Stop Date: 07/22/24 Anesthesia Stop Time: 09:00 Coding CPT Codes CPT Codes: ANES UPR GI NDSC PX NOS - 06933 ([id number]) P3 - PATIENT W/SEVERE SYS DISEASE, QX - SHADOWGRAPH OPERATOR SVC W/ MD MED DIRECTION, QK - CAMP ADVISOR 2-4 CNCRNT ANES PROC
--- NOTE | 2024-07-22 09:10 | P.ANES_ITS ---
Anesthesia Charges Start Date/Time Anesthesia Start Date: 07/22/24 Anesthesia Start Time: 08:35 Stop Date/Time Anesthesia Stop Date: 07/22/24 Anesthesia Stop Time: 09:00 Summary Extremes of Age - Over 70 or under 1: MDA Coding CPT Codes CPT Codes: ANES UPR GI NDSC PX NOS - 59698 ([id number]) QK - SUPERVISOR PHOSPHORUS PROCESSING 2-4 CNCRNT ANES PROC, QX - EAP CLINICIAN SVC W/ MD MED DIRECTION, P3 - PATIENT W/SEVERE SYS DISEASE Additional Codes: Summary - Extremes of Age - Over 70 or under 1: MDA ([id number])
== END 2024-07-22 07:58 | disposition home or self-care (01) ==
LOC: OP CLINIC 07:57
PROVIDERS: PCP Nurse Practitioner Family; Visit Provider Internal Medicine
DX: R10.13 Epigastric pain (principal)
CPT/HCPCS: 00731; 43239; 88305; 99100; J2704; J3490

== ENCOUNTER 2024-10-10 11:51 | Outpatient (CLI) | payer MEDICARE, BC, SELFPAY ==
--- NOTE | 2024-10-10 13:37 | P.ANES_ITS ---
Anesthesia Charges Start Date/Time Anesthesia Start Date: 10/10/24 Anesthesia Start Time: 12:51 Stop Date/Time Anesthesia Stop Date: 10/10/24 Anesthesia Stop Time: 13:33 Summary Extremes of Age - Over 70 or under 1: MOUNTER FLUTES AND PICCOLOS Coding CPT Codes CPT Codes: ANES LWR INTST NDSC NOS - 36612 ([id number]) P3 - PATIENT W/SEVERE SYS DISEASE, QK - WEBSPHERE COMMERCE CONSULTANT 2-4 CNCRNT ANES PROC, QX - MOUNTER FLUTES AND PICCOLOS SVC W/ MD MED DIRECTION Additional Codes: Summary - Extremes of Age - Over 70 or under 1: MOUNTER FLUTES AND PICCOLOS ([id number])
--- NOTE | 2024-10-10 13:37 | W.ANESCHARGE ---
Anesthesia Charges Start Date/Time Anesthesia Start Date: 10/10/24 Anesthesia Start Time: 12:51 Stop Date/Time Anesthesia Stop Date: 10/10/24 Anesthesia Stop Time: 13:33 Summary Extremes of Age - Over 70 or under 1: TUBE CARRIER Coding CPT Codes CPT Codes: ANES LWR INTST NDSC NOS - 03230 ([id number]) P3 - PATIENT W/SEVERE SYS DISEASE, QK - WINDOW SHADE CUTTER AND MOUNTER 2-4 CNCRNT ANES PROC, QX - TUBE CARRIER SVC W/ MD MED DIRECTION Additional Codes: Summary - Extremes of Age - Over 70 or under 1: TUBE CARRIER ([id number])
--- NOTE | 2024-10-10 14:02 | W.ANESCHARGE ---
Anesthesia Charges Start Date/Time Anesthesia Start Date: 10/10/24 Anesthesia Start Time: 12:51 Stop Date/Time Anesthesia Stop Date: 10/10/24 Anesthesia Stop Time: 13:33 Summary Extremes of Age - Over 70 or under 1: MDA Coding CPT Codes CPT Codes: ANES LWR INTST NDSC NOS - 10381 ([id number]) QK - SPORTS INSTRUCTOR 2-4 CNCRNT ANES PROC, QX - CONSTRUCTION ADMINISTRATOR SVC W/ MD MED DIRECTION, P3 - PATIENT W/SEVERE SYS DISEASE Additional Codes: Summary - Extremes of Age - Over 70 or under 1: MDA ([id number])
== END 2024-10-10 11:52 | disposition home or self-care (01) ==
LOC: OP CLINIC 11:55
PROVIDERS: PCP Nurse Practitioner Family; Visit Provider Surgery
DX: R15.9 Full incontinence of feces (principal); D12.1 Benign neoplasm of appendix; D12.0 Benign neoplasm of cecum; D12.2 Benign neoplasm of ascending colon; D12.3 Benign neoplasm of transverse colon; D12.8 Benign neoplasm of rectum; K63.5 Polyp of colon; K57.30 Diverticulosis of large intestine without perforation or abscess without bleeding; Z90.79 Acquired absence of other genital organ(s)
CPT/HCPCS: 00811; 45380; 45385; 88305; 99100; J2704

== ENCOUNTER 2024-10-29 06:58 | Outpatient (CLI) | payer MEDICARE, BC, SELFPAY ==
--- NOTE | 2024-10-29 07:15 | CRLHL7_ITS ---
For Patients: As a result of the Century Cures Act, medical imaging exams and procedure reports are released immediately into your electronic medical record. You may view this report before your referring provider. If you have questions, please contact your health care provider. Examination: US abdominal aorta Indication: CARDIOVASCULAR DISEASE. Abdominal aortic aneurysm screening. Technique: Martínez scale and color Doppler images of the aorta and common iliac arteries are obtained. Comparison: None Findings: Proximal aorta: 2.7 x 2.7 cm Mid aorta: 2.7 x 2.7 cm Distal aorta: 1.9 x 2.0 cm Right common iliac artery: 1.3 x 1.3 cm Left common iliac artery: 1.3 x 1.3 cm Impression: No abdominal aortic aneurysm. Dictated by Anil Rodriguez MD @ 10/29/2024 8:34:49 AM (Electronically Signed)
== END 2024-10-29 06:59 | disposition home or self-care (01) ==
LOC: US 06:59
PROVIDERS: PCP Nurse Practitioner Family; Visit Provider Nurse Practitioner Family
DX: Z13.6 Encounter for screening for cardiovascular disorders (principal)
CPT/HCPCS: 76775

== ENCOUNTER 2024-11-07 13:57 | Outpatient (CLI) | payer MEDICARE, BC, SELFPAY | END 2024-11-07 13:58 | disposition home or self-care (01) | PROVIDERS: PCP Nurse Practitioner Family; Visit Provider Nurse Practitioner Family | DX: Z01.818 Encounter for other preprocedural examination (principal) | CPT/HCPCS: 80053; 85025 ==

== ENCOUNTER 2024-11-08 07:52 | Outpatient (CLI) | payer MEDICARE, BC, SELFPAY | END 2024-11-08 07:53 | disposition home or self-care (01) | LOC: KYNREF 07:52 | PROVIDERS: PCP Nurse Practitioner Family; Visit Provider Nurse Practitioner Family | DX: Z01.818 Encounter for other preprocedural examination (principal); R74.8 Abnormal levels of other serum enzymes | CPT/HCPCS: 84132 ==

== ENCOUNTER 2024-11-11 06:08 | Day surgery (SDC) | payer MEDICARE, BC, SELFPAY ==
[2024-11-11] VITALS (13 sets, daily range): BP systolic 123–147; BP diastolic 64–95; PULSE 57–66; RESP 14–16; TEMP 36.4–36.6; O2SAT 93–96; BMI 32.8
[2024-11-11] MEDS: LACTATED RINGERS 1000 ML 1,000 ML 100 ML IV ×2 (06:20→08:25)
[2024-11-11 06:44] LABS: Chloride* 101 mmol/L (96-114); Potassium* 4.2 mmol/L (3.6-5.1); Sodium* 137 mmol/L (135-149)
[2024-11-11 06:47] LABS: Anion Gap 9 mEq/L (7-15); Blood Urea Nitrogen* 19 mg/dL (7-30); Calcium* 9.4 mg/dL (8.4-10.6); Carbon Dioxide* 27 mmol/L (20-32); Creatinine* 1.0 mg/dL (0.5-1.5); Est. Creatinine Clearance* 53.20; Estimated Glomerular Filt Rate 74 ml/min; Glucose* 138 mg/dL (60-115)
--- NOTE | 2024-11-11 07:13 | W.PM.H&PU ---
History & Physical Update History & Physical Update H&P Reviewed and patient assessed: No changes noted H&P Updates: Preop potassium 4.2.
--- NOTE | 2024-11-11 07:19 | PM.GSPRC ---
Operative Note Date of procedure: 11/11/24 Pre-op diagnosis: 1. Endoscopically unresectable appendiceal orifice adenoma. Post-op diagnosis: Same Type of Procedure: 1. Laparoscopic partial cecectomy. Indications: 84-year-old male with history of appendectomy for perforated appendicitis underwent a colonoscopy. A 6 mm sessile serrated adenoma was identified at appendiceal orifice. Given the location of the polyp and biopsy results, laparoscopic partial cecectomy and possible ileocecectomy was recommended. The procedure was discussed in detail. The risks associated procedure including infection, bleeding, the need for additional procedures, anastomotic leak, and cardiopulmonary complications were all discussed with the patient, and he agreed to proceed. Procedure Description: After discussing the risks and benefits of the procedure, the patient signed informed consent.? The operative site was marked and the patient was brought to the operating room and placed on the operating table in supine position.? Care was taken to pad the patient's pressure points.?? The patient was then intubated by anesthesia.? Ramírez catheter was placed under sterile conditions. The operative site was then prepped and draped in the usual sterile fashion.? A time-out was then performed. A 5-mm laparoscopy port was placed in the left upper quadrant guided by a 5-mm laparoscope placed into a translucent trochar. Passage through the layers of the abdominal wall was visualized with the laparoscope. A pneumoperitoneum was established. A 30-degree 5-mm laparoscope was advanced into the abdomen. The abdomen was briefly surveyed, and there was no evidence of adhesions. A 12-mm port and a 5-mm port were placed in the left low quadrant and suprapubically, respectively, under direct visualization by laparoscope. Left upper quadrant entrance port was then examined intraabdominally by placing the camera through the left lower quadrant port and no intraabdominal injury was seen. The patient was placed in Trendelenburg position, allowing the abdominal contents to shift cephalad. The small bowel was moved toward the midline in the abdomen and this allowed for identification of the cecum. Redundant sigmoid colon was attached to the cecal epiploic fat with dense adhesions. This was carefully dissected to mobilize sigmoid epiploic fat off lateral abdominal wall and cecum. This was done with Harmonic scalpel. When the sigmoid colon was free, it was retracted towards the pelvis. The terminal ileum was identified at its entrance into the cecum. Fatty tissue that was thought to be previous appendiceal mesentery was attached to the cecum and was away from the entrance of the terminal ileum. The cecum was then mobilized off the lateral abdominal wall with Harmonic scalpel. Since patient had previous appendectomy, appendix was not identified and there was no clear evidence of staple line at the proposed appendix site. The redundant and floppy inferior cecum was grasped and the area of proposed appendiceal orifice was isolated. The partial cecectomy was then completed with 2 vascular loads of Endo-FRANK stapler. The specimen was then placed into the Endo-Catch bag and removed from the abdomen. This was sent to pathology for immediate examination. The staple line was examined and the lateral corner of the staple line was clipped with a single clip to prevent bleeding. There was no bleeding noted from the rest of the staple line. Terminal ileum entrance into the cecum was identified and the staple line was away from this entrance. Pathology reviewed the specimen in the lab and appendiceal orifice and the polyp was identified. All margins were clear around the polyp. At this time we elected to proceed with abdominal closure. The 12-mm port was withdrawn and the fascial defect was closed with 0-0 Vicryl stitch using Tayo Chapito needle under direct visualization. The 5-mm port was removed under direct visualization. The left upper quadrant port was used to evacuate the pneumoperitoneum and then withdrawn. The skin incisions were closed with 4-0 monocryl. Steri-Strips were applied over the incisions. All counts were correct at the end of the case. The patient tolerated this procedure well and was transferred to PACU in stable condition. Findings: Adhesions identified near the previous appendectomy site. Sigmoid colon was attached to the cecum and those adhesions were lysed. Partial cecectomy was performed with 2 loads of Endo-FRANK stapler. Specimen was examined in pathology and polyp was identified at the appendiceal orifice with negative margins. Anesthesia: GETA Surgeon: Grant Manuel MD Estimated blood loss (mL): 5 Additional Specimen Information: 1. partial cecectomy. Condition: stable Disposition: PACU
[2024-11-11] MEDS: SODIUM CHLORIDE 0.9 % (FLUSH) 10 ML SYRINGE IVF (07:44)
--- NOTE | 2024-11-11 08:21 | P.ANES_ITS ---
Anesthesia Charges Start Date/Time Anesthesia Start Date: 11/11/24 Anesthesia Start Time: 07:29 Stop Date/Time Anesthesia Stop Date: 11/11/24 Anesthesia Stop Time: 09:44 Summary Extremes of Age - Over 70 or under 1: MDA Coding CPT Codes CPT Codes: ANESTH SURG LOWER ABDOMEN - 80361 ([id number]) P3 - PATIENT W/SEVERE SYS DISEASE, QK - DIRECTOR OF CLINICAL TRIALS 2-4 CNCRNT ANES PROC, QX - LANDSCAPE PAINTER SVC W/ MD MED DIRECTION Additional Codes: Summary - Extremes of Age - Over 70 or under 1: MDA ([id number])
--- NOTE | 2024-11-11 08:21 | W.ANESCHARGE ---
Anesthesia Charges Start Date/Time Anesthesia Start Date: 11/11/24 Anesthesia Start Time: 07:29 Stop Date/Time Anesthesia Stop Date: 11/11/24 Anesthesia Stop Time: 09:44 Summary Extremes of Age - Over 70 or under 1: MDA Coding CPT Codes CPT Codes: ANESTH SURG LOWER ABDOMEN - 57468 ([id number]) P3 - PATIENT W/SEVERE SYS DISEASE, QK - GREASE MAN 2-4 CNCRNT ANES PROC, QX - TRACK BROOM OPERATOR SVC W/ MD MED DIRECTION Additional Codes: Summary - Extremes of Age - Over 70 or under 1: MDA ([id number])
--- NOTE | 2024-11-11 09:34 | P.ANES_ITS ---
Anesthesia Charges Start Date/Time Anesthesia Start Date: 11/11/24 Anesthesia Start Time: 07:29 Stop Date/Time Anesthesia Stop Date: 11/11/24 Anesthesia Stop Time: 09:44 Summary Extremes of Age - Over 70 or under 1: CONSTRUCTION EQUIPMENT TECHNICIAN Coding CPT Codes CPT Codes: ANESTH SURG LOWER ABDOMEN - 20006 ([id number]) P3 - PATIENT W/SEVERE SYS DISEASE, QK - FLASH WELDER 2-4 CNCRNT ANES PROC, QX - CONSTRUCTION EQUIPMENT TECHNICIAN SVC W/ MD MED DIRECTION Additional Codes: Summary - Extremes of Age - Over 70 or under 1: CONSTRUCTION EQUIPMENT TECHNICIAN ([id number])
--- NOTE | 2024-11-11 09:34 | W.ANESCHARGE ---
Anesthesia Charges Start Date/Time Anesthesia Start Date: 11/11/24 Anesthesia Start Time: 07:29 Stop Date/Time Anesthesia Stop Date: 11/11/24 Anesthesia Stop Time: 09:44 Summary Extremes of Age - Over 70 or under 1: FLOOR INSTALLER Coding CPT Codes CPT Codes: ANESTH SURG LOWER ABDOMEN - 92849 ([id number]) P3 - PATIENT W/SEVERE SYS DISEASE, QK - HIGH SCHOOL BAND TEACHER 2-4 CNCRNT ANES PROC, QX - FLOOR INSTALLER SVC W/ MD MED DIRECTION Additional Codes: Summary - Extremes of Age - Over 70 or under 1: FLOOR INSTALLER ([id number])
[2024-11-11] MEDS: LIDOCAINE 1%-EPI 1:100,000 20 ML INFILTRATI (09:35)
[2024-11-11] MEDS: BUPIVACAINE 0.25% 30 ML INJECTION (09:35)
--- NOTE | 2024-11-11 09:45 | PC.NURSE ---
I entered patient's chart to prepare for post-op care. However, plan of care changed and patient will no longer be recovering on Med/Surg.
== END 2024-11-11 12:04 | disposition home or self-care (01) ==
LOC: OR 06:09 → MEDSURG 09:47
PROVIDERS: Anesthesiology; PCP Nurse Practitioner Family; Visit Provider Surgery
PROC: 0DTH4ZZ Resection of Cecum, Percutaneous Endoscopic Approach (ICD-10-PCS; CPT 44204; principal; 2024-11-11 07:30)
DX: D12.1 Benign neoplasm of appendix (principal)
CPT/HCPCS: 44238; 00840; 36415; 80048; 84132; 88307; 99100; J0330; J0665; J1100; J1171; J1335; J2371; J2405; J2704; J3010; J3475; J3490; J7120

== ENCOUNTER 2024-11-12 10:57 | Outpatient (CLI) | payer MEDICARE, BC, SELFPAY | END 2024-11-12 10:58 | disposition home or self-care (01) | LOC: NFLDREF 11-13 17:46 | PROVIDERS: PCP Nurse Practitioner Family; Referring Provider Nurse Practitioner Family; Visit Provider Nurse Practitioner Family | DX: R30.0 Dysuria (principal) | CPT/HCPCS: 81001; 87086 ==